=== PATIENT | female | born 1965 | race African-American/Black ===

== ENCOUNTER 2018-02-12 05:31 | Emergency (ER) | payer BC ==
[2018-02-12] MEDS ORDERED: Ketorolac Tromethamine 30 MG/ML VIAL ONE (06:29)
[2018-02-12 06:39] LABS: Bilirubin Negative (Negative); Blood, Urine Negative (Negative); Clarity CLEAR (Clear); Glucose, Urine (Dipstick) Negative (Negative); Leukocyte Negative (Negative); Nitrite Negative (Negative); Protein, Urine (Dipstick) Negative (Neg-Trace); pH, Urine 6.5 (5.0-9.0)
[2018-02-12 06:44] LABS: ALT (SGPT) 39 U/L (8-55); AST (SGOT) 36 U/L (5-34); Albumin 3.8 g/dL (3.5-5.0); Alkaline Phosphatase 80 U/L (40-150); Anion Gap 14 mmol/L (10-20); BUN (Urea Nitrogen) 14 mg/dL (9.8-20.1); Bilirubin, Total 0.4 mg/dL (0.2-1.2); Calc. Creatinine Clearance 0 mL/min (70-130); Calcium 8.9 mg/dL (7.8-10.44); Carbon Dioxide 29 mmol/L (22-29); Chloride 99 mmol/L (98-107); Estimated GFR-MDRD 87; Globulin 2.8 g/dL (2.4-3.5); Glucose 95 mg/dL (70-105); Lipase 13 U/L (8-78); Potassium 3.1 mmol/L (3.5-5.1); Protein, Total 6.6 g/dL (6.0-8.3); Sodium 139 mmol/L (136-145)
[2018-02-12 06:45] LABS: #Lymphocytes 2.6 thou/uL (1.20-3.40); #Monocytes 0.7 thou/uL (0.11-0.59); #Neutrophils 5.6 thou/uL (1.40-6.50); %Basophils 0.3 % (0.0-1.0); %Eosinophils 0.4 % (0.0-10.0); %Lymphocytes 28.7 % (21.0-51.0); %Monocytes 8.3 % (0.0-10.0); %Neutrophils 62.3 % (42.0-75.0); Hemoglobin 14.3 g/dL (12.0-16.0); Mean Corpuscular HGB CONC 32.9 g/dL (32.0-36.0); Mean Corpuscular Hemoglobin 30.4 pg (27.0-31.0); Mean Corpuscular Volume 92.4 fl (81.0-99.0); Mean Platelet Volume 8.3 fL (7.4-10.4); Platelet Count 175 thou/uL (130-400); RBC Distribution Width 14.3 % (11.5-14.5); White Blood Cell (WBC) Count 8.9 thou/uL (4.8-10.8)
--- NOTE | 2018-02-12 07:35 | RAD ---
2 VIEWS CHEST: Date: 02/12/18 COMPARISON: 07/05/15. HISTORY: Bronchitis. FINDINGS: No pneumothorax, pleural fluid, focal consolidation, or alveolar edema. Cardiac silhouette is promine nt. Partially imaged IVC filter present. Multilevel mid thoracic spine degenerative change present. IMPRESSION: No acute findings. POS: [facility]
--- NOTE | 2018-02-12 12:59 | CT ---
PRELIMINARY REPORT/[facility]/EMERGENTY AFTER-HOURS PROCEDURE CT Abdomen And Pelvis Without Intravenous Contrast EXAM DATE/TIME: 02/12/2018 6:47 AM CLINICAL HISTORY: 53 years old, female; Pain; Abdominal pain; Flank; Right; Prior surgery; Surgery type: Surgical histo ry of section, notes: X 2, surgical history of cholecystectomy, vena cava filter; Patient HX : F53 presents to ed C/O right-sided abdominal pain that radiates to her back onset yesterday at 17:00. TECHNIQUE: Axial computed tomography images of the abdomen and pelvis without intravenous contrast. Coronal refo rmatted images were created and reviewed. COMPARISON: No relevant prior studies available. FINDINGS: Lower thorax: No acute findings. ABDOMEN: Liver: Normal. No mass. Gallbladder and bile ducts: Normal. No calcified stones. No ductal dilation. Pancreas: Normal. No ductal dilation. Spleen: Normal. No splenomegaly. Adrenals: Normal. No mass. Kidneys and ureters: Normal. No hydronephrosis. Stomach and bowel: Normal. No obstruction. No mucosal thickening. Appendix: No findings to suggest acute appendicitis. PELVIS: Bladder: Unremarkable as visualized. Reproductive: Unremarkable as visualized. ABDOMEN and PELVIS: Intraperitoneal space: Normal. No free air. No significant fluid collection. Bones/joints: No acute fracture. No dislocation. Soft tissues: Unremarkable. Vasculature: There is a filter present within the inferior vena cava. Lymph nodes: Normal. No enlarged lymph nodes. IMPRESSION: No definite evidence of acute abdominal or pelvic pathology. Remainder of findings as described above . Thank you for allowing us to participate in the care of your patient. Dictated and Authenticated by: Ghada Oviedo MD 02/12/2018 7:56 AM Central Time ([place] & [place]) FINAL REPORT CT ABDOMEN AND PELVIS WITHOUT CONTRAST STONE PROTOCOL: Date: 02/12/18 HISTORY: Abdominal pain. Flank pain. Right-sided abdominal pain. COMPARISON: None. FINDINGS/IMPRESSION: The findings and impression are concordant with the preliminary report by Chastity. POS: [facility]
== END 2018-02-12 09:37 | disposition home or self-care (01) ==
LOC: ERS 05:31
DX: S39.011A Strain of muscle, fascia and tendon of abdomen, initial encounter (principal); I10 Essential (primary) hypertension; J45.909 Unspecified asthma, uncomplicated; E66.9 Obesity, unspecified; F41.9 Anxiety disorder, unspecified; Z86.711 Personal history of pulmonary embolism; Z79.899 Other long term (current) drug therapy; Z79.891 Long term (current) use of opiate analgesic; X58.XXXA Exposure to other specified factors, initial encounter
CPT/HCPCS: 71046; 74176; 80053; 81003; 83605; 83690; 85025; 86140; 96374; J1885

== ENCOUNTER 2018-07-07 14:48 | Outpatient (CLI) | payer BC, MEDICARE, MEDICAID ==
--- NOTE | 2018-07-07 16:04 | MRI ---
MRI OF THE RIGHT SHOULDER: 07/07/18 PROVIDED CLINICAL HISTORY: Right shoulder pain. FINDINGS: Evaluation is limited by patient motion. There is at least high grade partial thickness undersurface tearing involving the distal supraspinatus tendon at the footplate. The components of the rotator cuf f appears otherwise grossly intact. The long head biceps tendon is not well evaluated on this examina tion. The glenoid labrum and glenohumeral articular cartilage are not optimally evaluated in the abse nce of joint distention in particularly given the degree of patient motion. Acromioclavicular joint osteoarthrosis is demonstrated which produces mild mass effect upon the subja cent supraspinatus. Rotator cuff muscular volume appears preserved. There is greater than physiologic subacromial subdeltoid bursal fluid. IMPRESSION: 1. Limited study due to patient motion. 2. At least high grade partial thickness undersurface tearing involving the distal supraspinatus tendon. 3. Greater than physiologic subacromial subdeltoid bursal fluid may reflect bursitis or an occul t full thickness component to the described tear. POS: [facility]
== END 2018-07-07 14:49 | disposition home or self-care (01) ==
LOC: TBSIIMAG 14:48
PROVIDERS: ATTEND Orthopaedic Surgery
DX: M25.511 Pain in right shoulder (principal); M75.101 Unspecified rotator cuff tear or rupture of right shoulder, not specified as traumatic

== ENCOUNTER 2019-01-26 08:37 | Outpatient (CLI) | payer MEDICARE, MEDICAID ==
--- NOTE | 2019-01-31 13:21 | MMO ---
Bilateral MAMMO Bilat Screen [facility]. CLINICAL HISTORY: Patient is 54 years old and is seen for screening. The patient has no family history of breast cancer. The patient has no personal history of cancer. VIEWS: The views performed were: bilateral craniocaudal and bilateral mediolateral oblique. This study has been interpreted with the assistance of computer-aided detection. MAMMOGRAM FINDINGS: The breasts are almost entirely fat. There are benign appearing calcifications seen in both breasts. There are no suspicious masses, suspicious calcifications, or new areas of architectural distortion. IMPRESSION: THERE IS NO MAMMOGRAPHIC EVIDENCE OF MALIGNANCY. A ROUTINE FOLLOW-UP MAMMOGRAM IN 1 YEAR IS RECOMMENDED. ACR BI-RADS Category 2 - Benign finding MAMMOGRAPHY NOTE: 1. A negative mammogram report should not delay a biopsy if a dominant of clinically suspicious mass is present. 2. Approximately 10% to 15% of breast cancers are not detected by mammography. 3. Adenosis and dense breasts may obscure an underlying neoplasm.
== END 2019-01-26 08:38 | disposition home or self-care (01) ==
LOC: SCSMAMMO 08:37
PROVIDERS: ATTEND Obstetrics & Gynecology
DX: Z12.31 Encounter for screening mammogram for malignant neoplasm of breast (principal)
CPT/HCPCS: 77067

== ENCOUNTER 2019-04-29 06:20 | Emergency (ER) | payer MEDICARE, MEDICAID ==
[2019-04-29] MEDS ORDERED: Dexamethasone 10 MG/ML VIAL ONE (07:15)
[2019-04-29 07:43] LABS: MONO NEGATIVE CONTROL ZONE White (Negative) (White); MONO POSITIVE CONTROL Pink Line (Positive) (PINK/RED); Mononucleosis NEGATIVE (NEGATIVE)
== END 2019-04-29 08:10 | disposition home or self-care (01) ==
LOC: ERS 06:20
DX: J02.9 Acute pharyngitis, unspecified (principal); I10 Essential (primary) hypertension; J45.909 Unspecified asthma, uncomplicated; F41.9 Anxiety disorder, unspecified; Z86.711 Personal history of pulmonary embolism; Z79.899 Other long term (current) drug therapy; Z79.51 Long term (current) use of inhaled steroids
CPT/HCPCS: 36415; 86308; 96372; 99283; J1100

== ENCOUNTER 2020-11-23 10:51 | Emergency (ER) | payer MEDICAID, MEDICARE ==
[2020-11-23 11:29] LABS: #Lymphocytes 1.6 thou/uL (1.20-3.40); #Monocytes 0.5 thou/uL (0.11-0.59); #Neutrophils 3.4 thou/uL (1.40-6.50); %Basophils 0.2 % (0.0-1.0); %Eosinophils 0.3 % (0.0-10.0); %Lymphocytes 29.1 % (21.0-51.0); %Monocytes 8.8 % (0.0-10.0); %Neutrophils 61.7 % (42.0-75.0); Mean Corpuscular HGB CONC 33.6 g/dL (32.0-36.0); Mean Corpuscular Hemoglobin 30.7 pg (27.0-31.0); Mean Corpuscular Volume 91.4 fL (78.0-98.0); Mean Platelet Volume 8.2 fL (7.4-10.4); Platelet Count 169 thou/uL (130-400); RBC Distribution Width 13.6 % (11.5-14.5); Red Blood Cell (RBC) Count 4.22 mill/uL (4.20-5.40); White Blood Cell (WBC) Count 5.5 thou/uL (4.8-10.8)
[2020-11-23 11:43] LABS: ALT (SGPT) 12 U/L (8-55); AST (SGOT) 14 U/L (5-34); Albumin 3.7 g/dL (3.5-5.0); Alkaline Phosphatase 87 U/L (40-110); Anion Gap 11 mmol/L (10-20); BUN (Urea Nitrogen) 17 mg/dL (9.8-20.1); Bilirubin, Total 0.5 mg/dL (0.2-1.2); Calc. Creatinine Clearance 0 mL/min (70-130); Carbon Dioxide 27 mmol/L (22-29); Chloride 103 mmol/L (98-107); Glucose 87 mg/dL (70-105); Lipase 11 U/L (8-78); Potassium 3.7 mmol/L (3.5-5.1); Protein, Total 6.7 g/dL (6.0-8.3); Sodium 137 mmol/L (136-145)
[2020-11-23] MEDS ORDERED: Ketorolac Tromethamine 30 MG/ML VIAL ONE (12:13)
[2020-11-23 12:29] LABS: Bilirubin Negative (Negative); Blood, Urine Negative (Negative); Clarity Clear (Clear); Glucose, Urine (Dipstick) Normal (Negative); Ketone, Urine Negative (Negative); Leukocyte Negative Leu/uL (Negative); Nitrite Negative (Negative); Protein, Urine (Dipstick) Negative (Neg-Trace); Urobilinogen Normal mg/dL (Less than 2)
[2020-11-23] MEDS ORDERED: Iopamidol-370 76% 500 ML 1 ML ONE (14:33)
== END 2020-11-23 15:16 | disposition home or self-care (01) ==
LOC: ERS 10:51
DX: R10.9 Unspecified abdominal pain (principal); J45.909 Unspecified asthma, uncomplicated; I10 Essential (primary) hypertension; E66.9 Obesity, unspecified; Z79.899 Other long term (current) drug therapy
CPT/HCPCS: 36415; 74177; 80053; 81003; 83690; 85025; 96372; J1885; Q9967

== ENCOUNTER 2021-01-27 10:53 | Emergency (ER) | payer MEDICARE, MEDICAID ==
[2021-01-27] MEDS ORDERED: Apixaban 5 MG TAB PO SCH (14:30)
== END 2021-01-27 14:53 | disposition home or self-care (01) ==
LOC: ERS 10:53
DX: I82.402 Acute embolism and thrombosis of unspecified deep veins of left lower extremity (principal); J45.909 Unspecified asthma, uncomplicated; I10 Essential (primary) hypertension; Z79.899 Other long term (current) drug therapy; Z86.711 Personal history of pulmonary embolism; M79.605 Pain in left leg; M79.89 Other specified soft tissue disorders

== ENCOUNTER 2021-06-19 17:58 | Inpatient (IN) | payer OTHER, MEDICARE, MEDICAID ==
[2021-06-19 18:45] LABS: Hemoglobin 13.9 g/dL (12.0-16.0); Mean Corpuscular HGB CONC 33.1 g/dL (32.0-36.0); Mean Corpuscular Hemoglobin 30.1 pg (27.0-31.0); Mean Corpuscular Volume 91.1 fL (78.0-98.0); Mean Platelet Volume 7.9 fL (7.4-10.4); Platelet Count 166 thou/uL (130-400); RBC Distribution Width 14.6 % (11.5-14.5); White Blood Cell (WBC) Count 8.6 thou/uL (4.8-10.8)
[2021-06-19 18:57] LABS: ALT (SGPT) 28 U/L (8-55); AST (SGOT) 39 U/L (5-34); Albumin 3.6 g/dL (3.5-5.0); Alkaline Phosphatase 75 U/L (40-110); Anion Gap 14 mmol/L (10-20); BUN (Urea Nitrogen) 15 mg/dL (9.8-20.1); Bilirubin, Total 0.3 mg/dL (0.2-1.2); Calc. Creatinine Clearance 0 mL/min (70-130); Calcium 9.4 mg/dL (7.8-10.44); Carbon Dioxide 26 mmol/L (22-29); Chloride 99 mmol/L (98-107); Globulin 3.9 g/dL (2.4-3.5); Glucose 154 mg/dL (70-105); Potassium 4.6 mmol/L (3.5-5.1); Protein, Total 7.5 g/dL (6.0-8.3); Sodium 134 mmol/L (136-145)
[2021-06-19 19:04] LABS: Band 16 % (5-11); Lymphocytes 11 % (21-51); MDiff Complete? YES; Monocytes 3 % (0-10); Neutrophil 69 % (42-75); Platelet Morphology Comment Appears Adequate; Polychromasia SLIGHT = 2-3 cells (100X) (0-2/hpf); Reactive Lymphocytes 1 % (0-10)
[2021-06-19] MEDS ORDERED: Dexamethasone 10 MG/ML VIAL ONE (20:52)
[2021-06-19] MEDS ORDERED: Succinylcholine 200 MG/10 ml SYRINGE FS ONE (21:00)
[2021-06-19 22:25] LABS: Bilirubin Negative (Negative); Blood, Urine Negative (Negative); Clarity Clear (Clear); Glucose, Urine (Dipstick) Normal (Negative); Ketone, Urine Negative (Negative); Leukocyte Negative Leu/uL (Negative); Nitrite Negative (Negative); Protein, Urine (Dipstick) 30 mg/dL (Neg-Trace); RBC/HPF None Seen HPF (0-3); Specific Gravity, Urine 1.016 (1.002-1.036); Urobilinogen Normal mg/dL (Less than 2); WBC/HPF 0-3 HPF (0-3); pH, Urine 6.5 (5.0-9.0)
[2021-06-19 22:26] LABS: Bacteria/HPF 1+ HPF (None Seen)
[2021-06-20] MEDS: Benzonatate 100 MG CAP PO PRN ×4 (00:37→22:51)
[2021-06-20] MEDS ORDERED: Ondansetron PF 4 MG/2 ML Vial IVP PRN (02:58)
[2021-06-20] MEDS ORDERED: Albuterol 200 PUFF (6.7GM INHALER) INH PRN (02:59)
[2021-06-20] MEDS: Albuterol 200 PUFF (6.7GM INHALER) INH SCH ×5 (06:11→22:51)
[2021-06-20] MEDS ORDERED: Mometasone 100 MCG/Formoterol 5 MCG 120 PUFF INHALER INH SCH (06:30)
[2021-06-20] MEDS: Mometasone 200 MCG/Formoterol 5 MCG 120 PUFF INHALER INH SCH ×2 (06:54→20:15)
[2021-06-20] MEDS ORDERED: Ipratropium Bromide 2.5 ml Neb NEB SCH (07:00)
[2021-06-20 07:14] LABS: ALT (SGPT) 29 U/L (8-55); AST (SGOT) 41 U/L (5-34); Albumin 3.3 g/dL (3.5-5.0); Alkaline Phosphatase 71 U/L (40-110); Anion Gap 14 mmol/L (10-20); BUN (Urea Nitrogen) 14 mg/dL (9.8-20.1); Bilirubin, Total 0.4 mg/dL (0.2-1.2); CRP (Inflammatory) 29.78 mg/dL (= or < 0.5); Calc. Creatinine Clearance 210 mL/min (70-130); Calcium 9.3 mg/dL (7.8-10.44); Carbon Dioxide 25 mmol/L (22-29); Chloride 100 mmol/L (98-107); Glucose 140 mg/dL (70-105); Potassium 4.4 mmol/L (3.5-5.1); Protein, Total 7.3 g/dL (6.0-8.3); Sodium 135 mmol/L (136-145)
[2021-06-20 07:18] LABS: #Lymphocytes 0.7 thou/uL (1.20-3.40); #Monocytes 0.5 thou/uL (0.11-0.59); #Neutrophils 9.4 thou/uL (1.40-6.50); %Eosinophils 0.1 % (0.0-10.0); %Lymphocytes 6.5 % (21.0-51.0); %Monocytes 4.3 % (0.0-10.0); %Neutrophils 89.1 % (42.0-75.0); Hemoglobin 13.6 g/dL (12.0-16.0); Mean Corpuscular HGB CONC 32.4 g/dL (32.0-36.0); Mean Corpuscular Hemoglobin 29.7 pg (27.0-31.0); Mean Corpuscular Volume 91.7 fL (78.0-98.0); Mean Platelet Volume 8.4 fL (7.4-10.4); Platelet Count 176 thou/uL (130-400); RBC Distribution Width 14.8 % (11.5-14.5); Red Blood Cell (RBC) Count 4.57 mill/uL (4.20-5.40); White Blood Cell (WBC) Count 10.5 thou/uL (4.8-10.8)
[2021-06-20] MEDS: Apixaban 5 MG TAB PO SCH ×2 (07:56→21:29)
[2021-06-20] MEDS: Zinc Sulfate 220 MG CAP PO SCH (07:56)
[2021-06-20] MEDS: Amlodipine 10 MG TAB PO SCH (07:56)
[2021-06-20] MEDS: Famotidine 20 MG TAB PO SCH ×2 (07:56→21:29)
[2021-06-20] MEDS: Cholecalciferol 1,000 UNITS (25 MCG) TAB PO SCH (07:57)
[2021-06-20] MEDS: Dexamethasone 4 mg/ml Vial SLOW IVP SCH (07:57)
[2021-06-20] MEDS ORDERED: Dexamethasone 4 mg/ml Vial SLOW IVP SCH (09:00)
[2021-06-20] MEDS ORDERED: Non-Formulary Item 1 EACH (Fluticasone/Vilanterol [Breo Ellipta 200-25 Mcg Inh] 1 EACH Bl INH SCH (09:00)
[2021-06-20] MEDS ORDERED: REMDESIVIR 200 MG in Sodium Chloride 0.9% 250 ML 210 ML IV SCH (09:00)
[2021-06-20] MEDS ORDERED: Ascorbic Acid 500 mg Chewable Tablet PO SCH (09:00)
[2021-06-20] MEDS ORDERED: Pharmacy to Dose BARICITINIB IVPB PRN (16:04)
[2021-06-20 16:52] LABS: Actual Bicarbonate (HCO3a) 25.7 mEq/L (22-28); Base Excess (BEa) 2.5 mEq/L (-2.0 to +3.0); CO2 Tension 35.5 mmHg (35.0-45.0); Carboxyhemoglobin (COHb) 0.8 gm% (0.0-3.0); Hemoglobin (Hb) 14.5 g/dL (12.0-16.0); Potassium - ABG Lab 4.31 mmol/L (3.70-5.30); pH, Arterial 7.48 (7.35-7.45)
[2021-06-20 17:21] LABS: O2 Tension (PaO2), arterial 48.5 mmHg (80.0-100.0)
[2021-06-20 17:22] LABS: ALV-art Gradient 391.965 mmHg (0-20); Puncture Site LRA
[2021-06-20] MEDS ORDERED: BARICITINIB 2 MG TAB PO SCH (19:30)
[2021-06-20] MEDS: ALPRAZolam 0.5 MG TAB PO SCH (21:29)
[2021-06-20] MEDS: Montelukast Sodium 10 mg Tablet PO SCH (21:29)
[2021-06-20] MEDS: hydrALAZINE 20 MG/ML VIAL SLOW IVP PRN (23:49)
[2021-06-21 04:38] LABS: ALT (SGPT) 30 U/L (8-55); AST (SGOT) 46 U/L (5-34); Albumin 3.2 g/dL (3.5-5.0); Alkaline Phosphatase 80 U/L (40-110); Anion Gap 18 mmol/L (10-20); BUN (Urea Nitrogen) 21 mg/dL (9.8-20.1); Bilirubin, Total 0.4 mg/dL (0.2-1.2); CRP (Inflammatory) 30.94 mg/dL (= or < 0.5); Calc. Creatinine Clearance 213 mL/min (70-130); Carbon Dioxide 21 mmol/L (22-29); Chloride 99 mmol/L (98-107); Globulin 4.1 g/dL (2.4-3.5); Glucose 134 mg/dL (70-105); Potassium 4.5 mmol/L (3.5-5.1); Protein, Total 7.3 g/dL (6.0-8.3); Sodium 133 mmol/L (136-145)
[2021-06-21 05:49] LABS: Band 11 % (5-11); Hemoglobin 13.8 g/dL (12.0-16.0); Lymphocytes 9 % (21-51); MDiff Complete? YES; Mean Corpuscular HGB CONC 33.2 g/dL (32.0-36.0); Mean Corpuscular Hemoglobin 30.3 pg (27.0-31.0); Mean Corpuscular Volume 91.3 fL (78.0-98.0); Mean Platelet Volume 8.4 fL (7.4-10.4); Monocytes 4 % (0-10); Neutrophil 76 % (42-75); Platelet Count 191 thou/uL (130-400); Platelet Morphology Comment Appears Adequate; Polychromasia SLIGHT = 2-3 cells (100X) (0-2/hpf); RBC Distribution Width 14.7 % (11.5-14.5); Red Blood Cell (RBC) Count 4.55 mill/uL (4.20-5.40); Rouleaux Formation MODERATE= 6-15 cells (100X) (None Seen)
[2021-06-21] MEDS: Albuterol 200 PUFF (6.7GM INHALER) INH SCH ×6 (05:55→22:45)
[2021-06-21] MEDS: Levothyroxine Sodium 50 MCG TAB PO SCH (05:57)
[2021-06-21] MEDS: Mometasone 200 MCG/Formoterol 5 MCG 120 PUFF INHALER INH SCH ×2 (05:57→18:41)
[2021-06-21] MEDS: Benzonatate 100 MG CAP PO PRN ×2 (06:01→21:04)
[2021-06-21] MEDS: Zinc Sulfate 220 MG CAP PO SCH (09:31)
[2021-06-21] MEDS: Ascorbic Acid 500 mg Chewable Tablet PO SCH (09:31)
[2021-06-21] MEDS: Apixaban 5 MG TAB PO SCH ×2 (09:32→21:04)
[2021-06-21] MEDS: Famotidine 20 MG TAB PO SCH ×2 (09:32→21:04)
[2021-06-21] MEDS: Cholecalciferol 1,000 UNITS (25 MCG) TAB PO SCH (09:32)
[2021-06-21] MEDS: Amlodipine 10 MG TAB PO SCH (09:32)
[2021-06-21] MEDS: Dexamethasone 4 mg/ml Vial SLOW IVP SCH (09:32)
[2021-06-21] MEDS: REMDESIVIR 100 MG in Sodium Chloride 0.9% 250 ML 230 ML IV SCH (09:33)
[2021-06-21] MEDS: ALPRAZolam 0.5 MG TAB PO SCH ×2 (10:01→21:04)
[2021-06-21] MEDS: Tiotropium Bromide 4 GM INHALER IH SCH (18:39)
[2021-06-21] MEDS: Montelukast Sodium 10 mg Tablet PO SCH (21:04)
[2021-06-21] MEDS: BARICITINIB 2 MG TAB PO SCH (21:21)
[2021-06-21] MEDS: guaiFENesin/Codeine 200 mg/20 mg 10 ml Cup PO PRN (22:45)
[2021-06-22] MEDS: Benzonatate 100 MG CAP PO PRN ×2 (01:01→20:58)
[2021-06-22] MEDS: ALPRAZolam 0.25 MG TAB PO PRN ×3 (01:01→23:49)
[2021-06-22] MEDS ORDERED: Lorazepam 2 MG/ML VIAL SLOW IVP SCH (02:15)
[2021-06-22 02:22] LABS: Actual Bicarbonate (HCO3a) 25.5 mEq/L (22-28); Base Excess (BEa) 1.4 mEq/L (-2.0 to +3.0); CO2 Tension 38.7 mmHg (35.0-45.0); Calcium, Ionized (arterial) 1.15 mmol/L (1.12-1.30); Carboxyhemoglobin (COHb) 0.5 gm% (0.0-3.0); Hemoglobin (Hb) 15.2 g/dL (12.0-16.0); O2 Tension (PaO2), arterial 61.2 mmHg (80.0-100.0); Potassium - ABG Lab 4.36 mmol/L (3.70-5.30); pH, Arterial 7.44 (7.35-7.45)
[2021-06-22 02:31] LABS: ALV-art Gradient 589.165 mmHg (0-20); Puncture Site RRA
[2021-06-22] MEDS: Albuterol 200 PUFF (6.7GM INHALER) INH SCH ×5 (02:31→18:36)
[2021-06-22 04:06] LABS: #Lymphocytes 1.1 thou/uL (1.20-3.40); #Monocytes 0.8 thou/uL (0.11-0.59); #Neutrophils 10.6 thou/uL (1.40-6.50); %Eosinophils 0.3 % (0.0-10.0); %Lymphocytes 8.6 % (21.0-51.0); %Monocytes 6.1 % (0.0-10.0); Mean Corpuscular Hemoglobin 30.2 pg (27.0-31.0); Mean Corpuscular Volume 91.6 fL (78.0-98.0); Mean Platelet Volume 7.9 fL (7.4-10.4); Platelet Count 137 thou/uL (130-400); RBC Distribution Width 14.6 % (11.5-14.5); Red Blood Cell (RBC) Count 4.98 mill/uL (4.20-5.40); White Blood Cell (WBC) Count 12.5 thou/uL (4.8-10.8)
[2021-06-22 04:34] LABS: Anion Gap 15 mmol/L (10-20); BUN (Urea Nitrogen) 34 mg/dL (9.8-20.1); Calc. Creatinine Clearance 185 mL/min (70-130); Carbon Dioxide 24 mmol/L (22-29); Chloride 98 mmol/L (98-107); Potassium 4.7 mmol/L (3.5-5.1); Sodium 132 mmol/L (136-145)
[2021-06-22 04:35] LABS: ALT (SGPT) 33 U/L (8-55); AST (SGOT) 39 U/L (5-34); Albumin 3.4 g/dL (3.5-5.0); Alkaline Phosphatase 100 U/L (40-110); Bilirubin, Total 0.6 mg/dL (0.2-1.2); CRP (Inflammatory) 24.11 mg/dL (= or < 0.5); Calcium 9.2 mg/dL (7.8-10.44); Globulin 4.4 g/dL (2.4-3.5); Glucose 129 mg/dL (70-105); Protein, Total 7.8 g/dL (6.0-8.3)
[2021-06-22] MEDS: Levothyroxine Sodium 50 MCG TAB PO SCH (06:00)
[2021-06-22] MEDS: Mometasone 200 MCG/Formoterol 5 MCG 120 PUFF INHALER INH SCH ×2 (07:00→18:36)
[2021-06-22] MEDS: REMDESIVIR 100 MG in Sodium Chloride 0.9% 250 ML 230 ML IV SCH (09:17)
[2021-06-22] MEDS: Ascorbic Acid 500 mg Chewable Tablet PO SCH (09:18)
[2021-06-22] MEDS: Dexamethasone 4 mg/ml Vial SLOW IVP SCH (09:18)
[2021-06-22] MEDS: Apixaban 5 MG TAB PO SCH ×2 (09:19→20:59)
[2021-06-22] MEDS: Cholecalciferol 1,000 UNITS (25 MCG) TAB PO SCH (09:19)
[2021-06-22] MEDS: Famotidine 20 MG TAB PO SCH ×2 (09:19→20:58)
[2021-06-22] MEDS: Zinc Sulfate 220 MG CAP PO SCH (09:19)
[2021-06-22] MEDS: Amlodipine 10 MG TAB PO SCH (09:19)
[2021-06-22] MEDS: ALPRAZolam 0.5 MG TAB PO SCH ×2 (09:19→20:59)
[2021-06-22] MEDS: Tiotropium Bromide 4 GM INHALER IH SCH (11:17)
[2021-06-22] MEDS: Montelukast Sodium 10 mg Tablet PO SCH (20:59)
[2021-06-22] MEDS: BARICITINIB 2 MG TAB PO SCH (21:04)
[2021-06-22] MEDS: guaiFENesin/Codeine 200 mg/20 mg 10 ml Cup PO PRN (23:48)
[2021-06-22] MEDS: Acetaminophen 325 MG TAB PO PRN (23:49)
[2021-06-23] MEDS: Albuterol 200 PUFF (6.7GM INHALER) INH SCH ×5 (00:15→23:46)
[2021-06-23 04:39] LABS: Hemoglobin 14.4 g/dL (12.0-16.0); Mean Corpuscular HGB CONC 31.2 g/dL (32.0-36.0); Mean Corpuscular Hemoglobin 28.5 pg (27.0-31.0); Mean Corpuscular Volume 91.5 fL (78.0-98.0); Mean Platelet Volume 8.6 fL (7.4-10.4); Platelet Count 128 thou/uL (130-400); RBC Distribution Width 14.5 % (11.5-14.5); Red Blood Cell (RBC) Count 5.04 mill/uL (4.20-5.40); White Blood Cell (WBC) Count 11.2 thou/uL (4.8-10.8)
[2021-06-23 04:40] LABS: ALT (SGPT) 28 U/L (8-55); AST (SGOT) 26 U/L (5-34); Albumin 3.1 g/dL (3.5-5.0); Alkaline Phosphatase 87 U/L (40-110); Anion Gap 14 mmol/L (10-20); BUN (Urea Nitrogen) 30 mg/dL (9.8-20.1); Bilirubin, Total 0.6 mg/dL (0.2-1.2); Calc. Creatinine Clearance 231 mL/min (70-130); Calcium 8.9 mg/dL (7.8-10.44); Carbon Dioxide 25 mmol/L (22-29); Chloride 100 mmol/L (98-107); Globulin 3.8 g/dL (2.4-3.5); Glucose 125 mg/dL (70-105); Magnesium 2.7 mg/dL (1.6-2.6); Phosphorus 3.3 mg/dL (2.3-4.7); Potassium 4.4 mmol/L (3.5-5.1); Protein, Total 6.9 g/dL (6.0-8.3); Sodium 135 mmol/L (136-145)
[2021-06-23] MEDS: Levothyroxine Sodium 50 MCG TAB PO SCH (05:38)
[2021-06-23 05:39] LABS: Band 2 % (5-11); Lymphocytes 11 % (21-51); MDiff Complete? YES; Monocytes 7 % (0-10); Neutrophil 80 % (42-75)
[2021-06-23] MEDS: Tiotropium Bromide 4 GM INHALER IH SCH (09:45)
[2021-06-23] MEDS: Mometasone 200 MCG/Formoterol 5 MCG 120 PUFF INHALER INH SCH (09:45)
[2021-06-23] MEDS: REMDESIVIR 100 MG in Sodium Chloride 0.9% 250 ML 230 ML IV SCH (09:46)
[2021-06-23] MEDS: Amlodipine 10 MG TAB PO SCH (09:48)
[2021-06-23] MEDS: Dexamethasone 4 mg/ml Vial SLOW IVP SCH (09:48)
[2021-06-23] MEDS: Ascorbic Acid 500 mg Chewable Tablet PO SCH (09:48)
[2021-06-23] MEDS: Zinc Sulfate 220 MG CAP PO SCH (09:49)
[2021-06-23] MEDS: Apixaban 5 MG TAB PO SCH ×2 (09:49→20:59)
[2021-06-23] MEDS: Famotidine 20 MG TAB PO SCH (09:49)
[2021-06-23] MEDS: Cholecalciferol 1,000 UNITS (25 MCG) TAB PO SCH (09:49)
[2021-06-23] MEDS: ALPRAZolam 0.5 MG TAB PO SCH (09:51)
[2021-06-23] MEDS ORDERED: Propofol 1,000 MG/100 ML VIAL IV ONE ×2 (11:51→13:33)
[2021-06-23] MEDS ORDERED: PROPOFOL 200 MG/20 ML VIAL ONE (13:00)
[2021-06-23] MEDS ORDERED: Rocuronium Bromide 10 MG/ML (10ML VIAL) ONE (13:00)
[2021-06-23] MEDS ORDERED: Succinylcholine 200 MG/10 ml SYRINGE FS ONE (13:00)
[2021-06-23] MEDS ORDERED: Fentanyl CADD 100 ML ONE ×2 (13:09→20:54)
[2021-06-23] MEDS ORDERED: Ventilator Sedation Protocol 1 EACH FS SCH (13:30)
[2021-06-23] MEDS ORDERED: Lorazepam 2 MG/ML VIAL ONE (13:32)
[2021-06-23] MEDS ORDERED: Propofol BOLUS 1,000 MG/100 ML VIAL IV PRN (13:45)
[2021-06-23] MEDS ORDERED: Fentanyl BOLUS 250 ML IVPB PRN (13:45)
[2021-06-23] MEDS: Lorazepam 2 MG/ML VIAL SLOW IVP PRN ×3 (14:02→16:31)
[2021-06-23] MEDS: Vecuronium 10 MG VIAL ONE ×2 (14:02→16:28)
[2021-06-23] MEDS ORDERED: Lorazepam 2 MG/ML VIAL SLOW IVP PRN (14:15)
[2021-06-23] MEDS ORDERED: Succinylcholine 200 MG/10 ml SYRINGE FS SCH (15:00)
[2021-06-23] MEDS ORDERED: PROPOFOL 200 MG/20 ML VIAL IV SCH (15:00)
[2021-06-23] MEDS ORDERED: Rocuronium Bromide 10 MG/ML (10ML VIAL) IVP SCH (15:00)
[2021-06-23] MEDS: Propofol 1,000 MG/100 ML VIAL IV PRN ×5 (15:09→23:34)
[2021-06-23] MEDS: hydrALAZINE 20 MG/ML VIAL SLOW IVP PRN (15:13)
[2021-06-23] MEDS ORDERED: Vecuronium 10 MG VIAL ONE (16:10)
[2021-06-23 16:17] LABS: pH, Arterial 7.26 (7.35-7.45)
[2021-06-23 16:18] LABS: Base Excess (BEa) -0.1 mEq/L (-2.0 to +3.0); CO2 Tension 66.3 mmHg (35.0-45.0)
[2021-06-23 16:19] LABS: Carboxyhemoglobin (COHb) 0.3 gm% (0.0-3.0); Hemoglobin (Hb) 16.1 g/dL (12.0-16.0); Potassium - ABG Lab 4.29 mmol/L (3.70-5.30); Puncture Site LRA
[2021-06-23 16:22] LABS: ALV-art Gradient 532.125 mmHg (0-20)
[2021-06-23] MEDS: Morphine 2 MG/ML VIAL SLOW IVP PRN (16:29)
[2021-06-23] MEDS: Dexmedetomidine 1,000 MCG in Sodium Chloride 0.9% 250 ML 240 ML IVPB SCH ×2 (16:31→20:57)
[2021-06-23] MEDS: Fentanyl CADD 100 ML IV SCH (20:58)
[2021-06-23] MEDS: Montelukast Sodium 10 mg Tablet PO SCH (20:59)
[2021-06-23] MEDS: BARICITINIB 2 MG TAB PO SCH (21:27)
[2021-06-24] MEDS ORDERED: Albuterol Sulfate 2.5 mg/3 ml Neb NEB SCH (01:00)
[2021-06-24] MEDS: Propofol 1,000 MG/100 ML VIAL IV PRN ×3 (05:46→20:46)
[2021-06-24] MEDS: Levothyroxine Sodium 50 MCG TAB PO SCH (05:47)
[2021-06-24] MEDS ORDERED: Fentanyl CADD 100 ML ONE ×2 (07:31→21:19)
[2021-06-24] MEDS: REMDESIVIR 100 MG in Sodium Chloride 0.9% 250 ML 230 ML IV SCH (07:35)
[2021-06-24] MEDS: Dexmedetomidine 1,000 MCG in Sodium Chloride 0.9% 250 ML 240 ML IVPB SCH ×2 (07:35→14:36)
[2021-06-24] MEDS: Cholecalciferol 1,000 UNITS (25 MCG) TAB PO SCH (07:36)
[2021-06-24] MEDS: Acetaminophen 325 MG TAB PO PRN (07:36)
[2021-06-24] MEDS: Ascorbic Acid 500 mg Chewable Tablet PO SCH (07:36)
[2021-06-24] MEDS: Dexamethasone 4 mg/ml Vial SLOW IVP SCH (07:36)
[2021-06-24] MEDS: Apixaban 5 MG TAB PO SCH ×2 (07:37→21:24)
[2021-06-24] MEDS: Amlodipine 10 MG TAB PO SCH (07:37)
[2021-06-24] MEDS: Fentanyl CADD 100 ML IV SCH ×2 (07:38→21:25)
[2021-06-24] MEDS: Albuterol 200 PUFF (6.7GM INHALER) INH SCH ×3 (07:40→19:06)
[2021-06-24 08:08] LABS: Actual Bicarbonate (HCO3a) 33.8 mEq/L (22-28); CO2 Tension 53.9 mmHg (35.0-45.0); Calcium, Ionized (arterial) 1.15 mmol/L (1.12-1.30); Carboxyhemoglobin (COHb) 0.4 gm% (0.0-3.0); Hemoglobin (Hb) 9.9 g/dL (12.0-16.0); O2 Tension (PaO2), arterial 78.8 mmHg (80.0-100.0); Puncture Site RRA; pH, Arterial 7.42 (7.35-7.45)
[2021-06-24 08:09] LABS: ALV-art Gradient 459.875 mmHg (0-20)
[2021-06-24 10:16] LABS: Actual Bicarbonate (HCO3a) 26.1 mEq/L (22-28); Base Excess (BEa) 0.5 mEq/L (-2.0 to +3.0); CO2 Tension 45.5 mmHg (35.0-45.0); Calcium, Ionized (arterial) 1.15 mmol/L (1.12-1.30); Carboxyhemoglobin (COHb) 0.4 gm% (0.0-3.0); O2 Tension (PaO2), arterial 68.7 mmHg (80.0-100.0); Potassium - ABG Lab 4.89 mmol/L (3.70-5.30); pH, Arterial 7.38 (7.35-7.45)
[2021-06-24 10:23] LABS: Puncture Site RRA
[2021-06-24 10:24] LABS: ALV-art Gradient 373.525 mmHg (0-20)
[2021-06-24] MEDS: hydrALAZINE 25 MG TAB PER TUBE SCH ×2 (14:12→21:23)
[2021-06-24] MEDS: Montelukast Sodium 10 mg Tablet PO SCH (21:23)
[2021-06-24] MEDS: BARICITINIB 2 MG TAB PO SCH (21:24)
[2021-06-25] MEDS: Albuterol 200 PUFF (6.7GM INHALER) INH SCH ×4 (00:06→18:28)
[2021-06-25] MEDS: Propofol 1,000 MG/100 ML VIAL IV PRN ×7 (00:17→23:10)
[2021-06-25] MEDS: Dexmedetomidine 1,000 MCG in Sodium Chloride 0.9% 250 ML 240 ML IVPB SCH (01:26)
[2021-06-25 04:32] LABS: #Eosinphils 0.1 thou/uL (0.0-0.7); #Lymphocytes 0.4 thou/uL (1.20-3.40); #Monocytes 0.5 thou/uL (0.11-0.59); #Neutrophils 7.8 thou/uL (1.40-6.50); %Basophils 0.1 % (0.0-1.0); %Eosinophils 0.7 % (0.0-10.0); %Lymphocytes 4.2 % (21.0-51.0); %Monocytes 6.1 % (0.0-10.0); Hemoglobin 9.5 g/dL (12.0-16.0); Mean Corpuscular HGB CONC 31.7 g/dL (32.0-36.0); Mean Corpuscular Hemoglobin 25.2 pg (27.0-31.0); Mean Corpuscular Volume 79.7 fL (78.0-98.0); Mean Platelet Volume 9.3 fL (7.4-10.4); Platelet Count 432 thou/uL (130-400); RBC Distribution Width 14.5 % (11.5-14.5); Red Blood Cell (RBC) Count 3.76 mill/uL (4.20-5.40); White Blood Cell (WBC) Count 8.8 thou/uL (4.8-10.8)
[2021-06-25 04:53] LABS: ALT (SGPT) 63 U/L (8-55); AST (SGOT) 26 U/L (5-34); Albumin 2.7 g/dL (3.5-5.0); Alkaline Phosphatase 140 U/L (40-110); Anion Gap 10 mmol/L (10-20); BUN (Urea Nitrogen) 15 mg/dL (9.8-20.1); Bilirubin, Total 0.3 mg/dL (0.2-1.2); Calc. Creatinine Clearance 341 mL/min (70-130); Calcium 8.4 mg/dL (7.8-10.44); Carbon Dioxide 35 mmol/L (22-29); Chloride 98 mmol/L (98-107); Glucose 114 mg/dL (70-105); Magnesium 2.2 mg/dL (1.6-2.6); Phosphorus 3.9 mg/dL (2.3-4.7); Potassium 4.8 mmol/L (3.5-5.1); Protein, Total 5.7 g/dL (6.0-8.3); Sodium 138 mmol/L (136-145)
[2021-06-25] MEDS: Levothyroxine Sodium 50 MCG TAB PO SCH (05:34)
[2021-06-25 08:10] LABS: Base Excess (BEa) -2.1 mEq/L (-2.0 to +3.0); CO2 Tension 46.1 mmHg (35.0-45.0); Calcium, Ionized (arterial) 1.17 mmol/L (1.12-1.30); Carboxyhemoglobin (COHb) 0.6 gm% (0.0-3.0); Hemoglobin (Hb) 14.2 g/dL (12.0-16.0); O2 Tension (PaO2), arterial 83.2 mmHg (80.0-100.0); Potassium - ABG Lab 4.36 mmol/L (3.70-5.30); pH, Arterial 7.33 (7.35-7.45)
[2021-06-25 08:11] LABS: Puncture Site LRA
[2021-06-25 08:12] LABS: ALV-art Gradient 286.975 mmHg (0-20)
[2021-06-25] MEDS: Dexamethasone 4 mg/ml Vial SLOW IVP SCH ×5 (08:45→20:03)
[2021-06-25] MEDS: hydrALAZINE 25 MG TAB PER TUBE SCH ×2 (08:45→11:06)
[2021-06-25] MEDS: Pantoprazole 40 MG GRANULES PACKET PER TUBE SCH ×4 (08:45→12:35)
[2021-06-25] MEDS: Acetaminophen 325 MG TAB PO PRN (08:46)
[2021-06-25] MEDS: Ascorbic Acid 500 mg Chewable Tablet PO SCH ×2 (08:46→11:05)
[2021-06-25] MEDS: Amlodipine 10 MG TAB PO SCH ×3 (08:46→12:08)
[2021-06-25] MEDS: Apixaban 5 MG TAB PO SCH ×2 (08:46→11:01)
[2021-06-25] MEDS: Cholecalciferol 1,000 UNITS (25 MCG) TAB PO SCH ×2 (08:50→11:05)
[2021-06-25] MEDS ORDERED: Heparin 10,000 UNITS/ 10 ML VIAL SLOW IVP SCH (10:15)
[2021-06-25] MEDS ORDERED: Pantoprazole 40 MG VIAL IVP SCH (10:15)
[2021-06-25] MEDS ORDERED: Acetaminophen 650 MG Suppository PR PRN (10:15)
[2021-06-25 11:28] LABS: Hemoglobin 13.3 g/dL (12.0-16.0); Platelet Count 127 thou/uL (130-400)
[2021-06-25] MEDS: Heparin 25,000 units/D5W 500 ML IVPB SCH (13:18)
[2021-06-25 13:44] LABS: Hemoglobin 13.7 g/dL (12.0-16.0); Mean Corpuscular HGB CONC 33.1 g/dL (32.0-36.0); Mean Corpuscular Hemoglobin 30.6 pg (27.0-31.0); Mean Corpuscular Volume 92.2 fL (78.0-98.0); Platelet Count 129 thou/uL (130-400); RBC Distribution Width 14.5 % (11.5-14.5); Red Blood Cell (RBC) Count 4.48 mill/uL (4.20-5.40); White Blood Cell (WBC) Count 8.6 thou/uL (4.8-10.8)
[2021-06-25] MEDS ORDERED: Fentanyl CADD 100 ML ONE (15:50)
[2021-06-25] MEDS: Lorazepam 2 MG/ML VIAL SLOW IVP PRN (15:53)
[2021-06-25] MEDS: Fentanyl CADD 100 ML IV SCH (15:53)
[2021-06-25] MEDS: BARICITINIB 2 MG TAB PO SCH (20:04)
[2021-06-25 20:26] LABS: PTT 162.9 sec (22.9-36.1)
[2021-06-25] MEDS: Montelukast Sodium 10 mg Tablet PO SCH (21:00)
[2021-06-26] MEDS: Albuterol 200 PUFF (6.7GM INHALER) INH SCH ×5 (00:23→23:08)
[2021-06-26] MEDS: Propofol 1,000 MG/100 ML VIAL IV PRN ×7 (03:09→20:24)
[2021-06-26] MEDS: Heparin 25,000 units/D5W 500 ML IVPB SCH (03:09)
[2021-06-26] MEDS: Dexmedetomidine 1,000 MCG in Sodium Chloride 0.9% 250 ML 240 ML IVPB SCH (03:10)
[2021-06-26 04:53] LABS: Hemoglobin 13.3 g/dL (12.0-16.0); Mean Corpuscular HGB CONC 32.7 g/dL (32.0-36.0); Mean Corpuscular Hemoglobin 30.1 pg (27.0-31.0); Mean Corpuscular Volume 92.1 fL (78.0-98.0); Mean Platelet Volume 8.3 fL (7.4-10.4); Platelet Count 150 thou/uL (130-400); RBC Distribution Width 14.5 % (11.5-14.5); Red Blood Cell (RBC) Count 4.43 mill/uL (4.20-5.40); White Blood Cell (WBC) Count 9.8 thou/uL (4.8-10.8)
[2021-06-26 05:00] LABS: Phosphorus 3.5 mg/dL (2.3-4.7)
[2021-06-26 05:05] LABS: ALT (SGPT) 17 U/L (8-55); AST (SGOT) 12 U/L (5-34); Albumin 2.9 g/dL (3.5-5.0); Alkaline Phosphatase 69 U/L (40-110); Anion Gap 11 mmol/L (10-20); BUN (Urea Nitrogen) 32 mg/dL (9.8-20.1); Bilirubin, Direct 0.2 mg/dL (0.1-0.3); Bilirubin, Total 0.4 mg/dL (0.2-1.2); Calc. Creatinine Clearance 231 mL/min (70-130); Calcium 8.4 mg/dL (7.8-10.44); Carbon Dioxide 27 mmol/L (22-29); Chloride 104 mmol/L (98-107); Globulin 3.5 g/dL (2.4-3.5); Glucose 142 mg/dL (70-105); Magnesium 3.1 mg/dL (1.6-2.6); Potassium 4.8 mmol/L (3.5-5.1); Protein, Total 6.4 g/dL (6.0-8.3); Sodium 137 mmol/L (136-145)
[2021-06-26] MEDS: Levothyroxine Sodium 50 MCG TAB PO SCH (06:00)
[2021-06-26 06:52] LABS: Band 6 % (5-11); Eosinophils 1 % (0-10); Lymphocytes 4 % (21-51); MDiff Complete? YES; Monocytes 1 % (0-10); Neutrophil 88 % (42-75)
[2021-06-26 08:34] LABS: Actual Bicarbonate (HCO3a) 24.3 mEq/L (22-28); Base Excess (BEa) -0.1 mEq/L (-2.0 to +3.0); CO2 Tension 38.9 mmHg (35.0-45.0); Calcium, Ionized (arterial) 1.16 mmol/L (1.12-1.30); Carboxyhemoglobin (COHb) 0.5 gm% (0.0-3.0); Hemoglobin (Hb) 13.6 g/dL (12.0-16.0); Potassium - ABG Lab 4.39 mmol/L (3.70-5.30); pH, Arterial 7.41 (7.35-7.45)
[2021-06-26 08:37] LABS: O2 Tension (PaO2), arterial 55.4 mmHg (80.0-100.0); Puncture Site RRA
[2021-06-26 08:39] LABS: ALV-art Gradient 181.175 mmHg (0-20)
[2021-06-26] MEDS: Pantoprazole 40 MG VIAL IVP SCH (08:47)
[2021-06-26] MEDS: Dexamethasone 4 mg/ml Vial SLOW IVP SCH ×2 (08:47→20:23)
[2021-06-26] MEDS: Lorazepam 2 MG/ML VIAL SLOW IVP PRN ×4 (12:05→20:23)
[2021-06-26] MEDS: Fentanyl CADD 100 ML IV SCH (12:10)
[2021-06-26] MEDS ORDERED: Fentanyl CADD 100 ML ONE (12:10)
[2021-06-26 12:21] LABS: PTT 202.6 sec (22.9-36.1)
[2021-06-26 13:38] LABS: PTT 163.6 sec (22.9-36.1)
[2021-06-26] MEDS: BARICITINIB 2 MG TAB PO SCH (20:22)
[2021-06-27] MEDS: Heparin 25,000 units/D5W 500 ML IVPB SCH ×2 (00:18→23:40)
[2021-06-27] MEDS: Propofol 1,000 MG/100 ML VIAL IV PRN ×9 (00:20→23:32)
[2021-06-27 08:24] LABS: Hemoglobin 13.9 g/dL (12.0-16.0); Mean Corpuscular HGB CONC 33.1 g/dL (32.0-36.0); Mean Corpuscular Hemoglobin 30.5 pg (27.0-31.0); Mean Corpuscular Volume 92.2 fL (78.0-98.0); Mean Platelet Volume 8.8 fL (7.4-10.4); Platelet Count 132 thou/uL (130-400); RBC Distribution Width 14.7 % (11.5-14.5); Red Blood Cell (RBC) Count 4.55 mill/uL (4.20-5.40); White Blood Cell (WBC) Count 9.9 thou/uL (4.8-10.8)
[2021-06-27] MEDS: Albuterol 200 PUFF (6.7GM INHALER) INH SCH ×3 (08:24→19:36)
[2021-06-27 08:37] LABS: Anion Gap 16 mmol/L (10-20); BUN (Urea Nitrogen) 33 mg/dL (9.8-20.1); Calc. Creatinine Clearance 0 mL/min (70-130); Calcium 8.5 mg/dL (7.8-10.44); Carbon Dioxide 21 mmol/L (22-29); Chloride 103 mmol/L (98-107); Glucose 159 mg/dL (70-105); Potassium 5.2 mmol/L (3.5-5.1); Sodium 135 mmol/L (136-145)
[2021-06-27 08:57] LABS: Band 12 % (5-11); Lymphocytes 4 % (21-51); MDiff Complete? YES; Metamyelocyte 2 % (0-0); Monocytes 3 % (0-10); Myelocyte 1 % (0-0); Neutrophil 78 % (42-75); Platelet Morphology Comment Appears Adequate; RBC Morphology Normal
[2021-06-27 09:09] LABS: Magnesium 3.3 mg/dL (1.6-2.6); Phosphorus 4.4 mg/dL (2.3-4.7)
[2021-06-27 09:20] LABS: Actual Bicarbonate (HCO3a) 24.6 mEq/L (22-28); Base Excess (BEa) -0.6 mEq/L (-2.0 to +3.0); CO2 Tension 42.9 mmHg (35.0-45.0); O2 Tension (PaO2), arterial 70.8 mmHg (80.0-100.0); pH, Arterial 7.37 (7.35-7.45)
[2021-06-27 09:21] LABS: Calcium, Ionized (arterial) 1.16 mmol/L (1.12-1.30); Carboxyhemoglobin (COHb) 0.4 gm% (0.0-3.0)
[2021-06-27 09:23] LABS: ALV-art Gradient 160.775 mmHg (0-20)
[2021-06-27] MEDS: Dexamethasone 4 mg/ml Vial SLOW IVP SCH ×2 (09:45→20:00)
[2021-06-27] MEDS: Amlodipine 5 MG TAB PER TUBE SCH (09:45)
[2021-06-27] MEDS: Polyethylene Glycol 3350 17 GM Packet PO SCH (09:46)
[2021-06-27] MEDS: Pantoprazole 40 MG VIAL IVP SCH (09:46)
[2021-06-27] MEDS: Fentanyl CADD 100 ML IV SCH (10:31)
[2021-06-27] MEDS ORDERED: Furosemide 40 MG/4 ML VIAL SLOW IVP SCH (11:00)
[2021-06-27] MEDS: Metoclopramide HCl 10 MG/2 ML VIAL IVP PRN (11:30)
[2021-06-27] MEDS: BARICITINIB 2 MG TAB PO SCH (20:00)
[2021-06-27] MEDS: Lorazepam 2 MG/ML VIAL SLOW IVP PRN (20:00)
[2021-06-28] MEDS: Albuterol 200 PUFF (6.7GM INHALER) INH SCH ×4 (00:48→18:40)
[2021-06-28] MEDS: Propofol 1,000 MG/100 ML VIAL IV PRN ×5 (04:36→20:17)
[2021-06-28 05:23] LABS: ALT (SGPT) 35 U/L (8-55); AST (SGOT) 36 U/L (5-34); Albumin 3.3 g/dL (3.5-5.0); Alkaline Phosphatase 86 U/L (40-110); Anion Gap 20 mmol/L (10-20); BUN (Urea Nitrogen) 55 mg/dL (9.8-20.1); Bilirubin, Total 0.6 mg/dL (0.2-1.2); Calc. Creatinine Clearance 0 mL/min (70-130); Carbon Dioxide 19 mmol/L (22-29); Chloride 99 mmol/L (98-107); Globulin 4.3 g/dL (2.4-3.5); Glucose 142 mg/dL (70-105); Magnesium 3.5 mg/dL (1.6-2.6); Phosphorus 6.2 mg/dL (2.3-4.7); Potassium 5.1 mmol/L (3.5-5.1); Protein, Total 7.6 g/dL (6.0-8.3); Sodium 133 mmol/L (136-145)
[2021-06-28 05:30] LABS: Hemoglobin 14.5 g/dL (12.0-16.0); Lymphocytes 1 % (21-51); MDiff Complete? YES; Mean Corpuscular HGB CONC 33.3 g/dL (32.0-36.0); Mean Corpuscular Hemoglobin 30.5 pg (27.0-31.0); Mean Corpuscular Volume 91.5 fL (78.0-98.0); Mean Platelet Volume 10.5 fL (7.4-10.4); Monocytes 5 % (0-10); Myelocyte 1 % (0-0); Neutrophil 93 % (42-75); Platelet Count 258 thou/uL (130-400); Platelet Morphology Comment Appears Adequate; Red Blood Cell (RBC) Count 4.74 mill/uL (4.20-5.40)
[2021-06-28] MEDS ORDERED: Fentanyl CADD 100 ML ONE (06:37)
[2021-06-28] MEDS: Fentanyl CADD 100 ML IV SCH (06:43)
[2021-06-28] MEDS: Dexamethasone 4 mg/ml Vial SLOW IVP SCH ×2 (07:41→20:17)
[2021-06-28] MEDS: Amlodipine 5 MG TAB PER TUBE SCH (07:41)
[2021-06-28] MEDS: Metoclopramide HCl 10 MG/2 ML VIAL IVP PRN (07:42)
[2021-06-28] MEDS: Polyethylene Glycol 3350 17 GM Packet PO SCH (07:42)
[2021-06-28] MEDS: Pantoprazole 40 MG VIAL IVP SCH (07:42)
[2021-06-28 08:41] LABS: Actual Bicarbonate (HCO3a) 22.2 mEq/L (22-28); CO2 Tension 44.8 mmHg (35.0-45.0); Calcium, Ionized (arterial) 1.14 mmol/L (1.12-1.30); Carboxyhemoglobin (COHb) 0.4 gm% (0.0-3.0); Hemoglobin (Hb) 14.7 g/dL (12.0-16.0); Potassium - ABG Lab 4.88 mmol/L (3.70-5.30); pH, Arterial 7.31 (7.35-7.45)
[2021-06-28 08:46] LABS: Puncture Site RRA
[2021-06-28] MEDS: Cefepime 1 GM in Sodium Chloride 0.9% 100 ML IVPB SCH (12:48)
[2021-06-28] MEDS: Vecuronium 10 MG VIAL IV PRN ×2 (18:23→21:39)
[2021-06-28] MEDS: Lorazepam 2 MG/ML VIAL SLOW IVP PRN (20:18)
[2021-06-28] MEDS: BARICITINIB 2 MG TAB PO SCH (20:18)
[2021-06-29] MEDS: Propofol 1,000 MG/100 ML VIAL IV PRN ×6 (00:20→22:23)
[2021-06-29] MEDS: Heparin 25,000 units/D5W 500 ML IVPB SCH (00:56)
[2021-06-29] MEDS ORDERED: Fentanyl CADD 100 ML ONE ×2 (01:52→19:33)
[2021-06-29] MEDS: Albuterol 200 PUFF (6.7GM INHALER) INH SCH ×5 (02:19→23:46)
[2021-06-29] MEDS: Fentanyl CADD 100 ML IV SCH ×2 (02:46→20:20)
[2021-06-29 04:23] LABS: Hemoglobin 13.6 g/dL (12.0-16.0); Mean Corpuscular HGB CONC 33.1 g/dL (32.0-36.0); Mean Corpuscular Hemoglobin 30.4 pg (27.0-31.0); Mean Corpuscular Volume 91.8 fL (78.0-98.0); Mean Platelet Volume 8.9 fL (7.4-10.4); Platelet Count 223 thou/uL (130-400); RBC Distribution Width 14.9 % (11.5-14.5); Red Blood Cell (RBC) Count 4.49 mill/uL (4.20-5.40); White Blood Cell (WBC) Count 20.2 thou/uL (4.8-10.8)
[2021-06-29 04:24] LABS: Band 3 % (5-11); Lymphocytes 12 % (21-51); MDiff Complete? YES; Monocytes 15 % (0-10); Neutrophil 70 % (42-75); Platelet Morphology Comment Appears Adequate; RBC Morphology Normal
[2021-06-29 04:27] LABS: Phosphorus 5.9 mg/dL (2.3-4.7)
[2021-06-29 04:30] LABS: ALT (SGPT) 40 U/L (8-55); AST (SGOT) 21 U/L (5-34); Alkaline Phosphatase 65 U/L (40-110); Anion Gap 15 mmol/L (10-20); BUN (Urea Nitrogen) 63 mg/dL (9.8-20.1); Bilirubin, Direct 0.5 mg/dL (0.1-0.3); Bilirubin, Total 0.6 mg/dL (0.2-1.2); Calc. Creatinine Clearance 111 mL/min (70-130); Calcium 8.7 mg/dL (7.8-10.44); Carbon Dioxide 23 mmol/L (22-29); Chloride 102 mmol/L (98-107); Globulin 3.6 g/dL (2.4-3.5); Glucose 156 mg/dL (70-105); Magnesium 3.5 mg/dL (1.6-2.6); Protein, Total 6.6 g/dL (6.0-8.3); Sodium 135 mmol/L (136-145)
[2021-06-29] MEDS: Amlodipine 5 MG TAB PER TUBE SCH (07:27)
[2021-06-29] MEDS: Polyethylene Glycol 3350 17 GM Packet PO SCH (07:28)
[2021-06-29] MEDS: Dexamethasone 4 mg/ml Vial SLOW IVP SCH ×2 (07:28→20:21)
[2021-06-29] MEDS: Pantoprazole 40 MG VIAL IVP SCH (07:29)
[2021-06-29 07:58] LABS: Actual Bicarbonate (HCO3a) 22.6 mEq/L (22-28); Base Excess (BEa) -3.5 mEq/L (-2.0 to +3.0); CO2 Tension 44.5 mmHg (35.0-45.0); Calcium, Ionized (arterial) 1.17 mmol/L (1.12-1.30); Carboxyhemoglobin (COHb) 0.3 gm% (0.0-3.0); Hemoglobin (Hb) 14.3 g/dL (12.0-16.0); Potassium - ABG Lab 5.25 mmol/L (3.70-5.30); pH, Arterial 7.32 (7.35-7.45)
[2021-06-29 08:13] LABS: ALV-art Gradient 152.575 mmHg (0-20); Puncture Site RRA
[2021-06-29] MEDS: Cefepime 1 GM in Sodium Chloride 0.9% 100 ML IVPB SCH (13:35)
[2021-06-29] MEDS: Lorazepam 2 MG/ML VIAL SLOW IVP PRN (20:21)
[2021-06-29] MEDS: BARICITINIB 2 MG TAB PO SCH (20:21)
[2021-06-30] MEDS: Heparin 25,000 units/D5W 500 ML IVPB SCH ×2 (00:20→20:40)
[2021-06-30 04:31] LABS: Anion Gap 12 mmol/L (10-20); BUN (Urea Nitrogen) 52 mg/dL (9.8-20.1); Calc. Creatinine Clearance 182 mL/min (70-130); Carbon Dioxide 25 mmol/L (22-29); Chloride 105 mmol/L (98-107); Sodium 137 mmol/L (136-145)
[2021-06-30 04:32] LABS: ALT (SGPT) 33 U/L (8-55); AST (SGOT) 13 U/L (5-34); Alkaline Phosphatase 65 U/L (40-110); Bilirubin, Total 0.6 mg/dL (0.2-1.2); Calcium 8.7 mg/dL (7.8-10.44); Globulin 3.4 g/dL (2.4-3.5); Glucose 148 mg/dL (70-105); Magnesium 3.7 mg/dL (1.6-2.6); Phosphorus 3.7 mg/dL (2.3-4.7); Protein, Total 6.4 g/dL (6.0-8.3)
[2021-06-30 05:15] LABS: Band 9 % (5-11); Hemoglobin 12.6 g/dL (12.0-16.0); Lymphocytes 8 % (21-51); MDiff Complete? YES; Mean Corpuscular HGB CONC 32.9 g/dL (32.0-36.0); Mean Corpuscular Hemoglobin 30.1 pg (27.0-31.0); Mean Corpuscular Volume 91.6 fL (78.0-98.0); Mean Platelet Volume 8.8 fL (7.4-10.4); Metamyelocyte 2 % (0-0); Monocytes 10 % (0-10); Myelocyte 1 % (0-0); Neutrophil 69 % (42-75); Platelet Count 225 thou/uL (130-400); Platelet Morphology Comment Appears Adequate; RBC Morphology Normal; Reactive Lymphocytes 1 % (0-10); Red Blood Cell (RBC) Count 4.17 mill/uL (4.20-5.40); White Blood Cell (WBC) Count 14.6 thou/uL (4.8-10.8)
[2021-06-30] MEDS: Propofol 1,000 MG/100 ML VIAL IV PRN ×5 (06:16→20:39)
[2021-06-30] MEDS: Levothyroxine 100 MCG SDV SLOW IVP SCH (06:20)
[2021-06-30 06:54] LABS: Base Excess (BEa) 0.4 mEq/L (-2.0 to +3.0); CO2 Tension 45.4 mmHg (35.0-45.0); Carboxyhemoglobin (COHb) 0.3 gm% (0.0-3.0); O2 Tension (PaO2), arterial 75.2 mmHg (80.0-100.0); Potassium - ABG Lab 5.27 mmol/L (3.70-5.30); pH, Arterial 7.38 (7.35-7.45)
[2021-06-30 07:00] LABS: Puncture Site RRA
[2021-06-30] MEDS: Albuterol 200 PUFF (6.7GM INHALER) INH SCH ×3 (07:01→18:48)
[2021-06-30] MEDS: Lorazepam 2 MG/ML VIAL SLOW IVP PRN ×2 (08:00→14:00)
[2021-06-30] MEDS: Dexamethasone 4 mg/ml Vial SLOW IVP SCH ×2 (08:00→20:40)
[2021-06-30] MEDS: Pantoprazole 40 MG VIAL IVP SCH (08:01)
[2021-06-30] MEDS: Amlodipine 5 MG TAB PER TUBE SCH (08:01)
[2021-06-30] MEDS: Polyethylene Glycol 3350 17 GM Packet PO SCH (12:07)
[2021-06-30] MEDS: Cefepime 1 GM in Sodium Chloride 0.9% 100 ML IVPB SCH (13:36)
[2021-06-30] MEDS ORDERED: Fentanyl CADD 100 ML ONE (16:04)
[2021-06-30] MEDS: Fentanyl CADD 100 ML IV SCH (16:09)
[2021-06-30] MEDS: BARICITINIB 2 MG TAB PO SCH (20:41)
[2021-07-01] MEDS: Albuterol 200 PUFF (6.7GM INHALER) INH SCH ×4 (00:02→18:28)
[2021-07-01] MEDS: Propofol 1,000 MG/100 ML VIAL IV PRN ×6 (00:49→23:25)
[2021-07-01] MEDS: Lorazepam 2 MG/ML VIAL SLOW IVP PRN ×3 (04:15→20:55)
[2021-07-01] MEDS: Vecuronium 10 MG VIAL IV PRN ×2 (04:15→20:55)
[2021-07-01 05:21] LABS: Band 4 % (5-11); Hemoglobin 12.2 g/dL (12.0-16.0); Lymphocytes 13 % (21-51); MDiff Complete? YES; Mean Corpuscular HGB CONC 33.6 g/dL (32.0-36.0); Mean Corpuscular Hemoglobin 31.1 pg (27.0-31.0); Mean Corpuscular Volume 92.6 fL (78.0-98.0); Monocytes 9 % (0-10); Neutrophil 74 % (42-75); Platelet Count 220 thou/uL (130-400); Platelet Morphology Comment Appears Adequate; RBC Morphology Normal; Red Blood Cell (RBC) Count 3.93 mill/uL (4.20-5.40); White Blood Cell (WBC) Count 13.6 thou/uL (4.8-10.8)
[2021-07-01 05:32] LABS: ALT (SGPT) 32 U/L (8-55); AST (SGOT) 14 U/L (5-34); Albumin 2.9 g/dL (3.5-5.0); Alkaline Phosphatase 60 U/L (40-110); Anion Gap 13 mmol/L (10-20); BUN (Urea Nitrogen) 49 mg/dL (9.8-20.1); Bilirubin, Total 0.6 mg/dL (0.2-1.2); Calc. Creatinine Clearance 247 mL/min (70-130); Carbon Dioxide 27 mmol/L (22-29); Chloride 107 mmol/L (98-107); Globulin 3.5 g/dL (2.4-3.5); Glucose 150 mg/dL (70-105); Magnesium 3.4 mg/dL (1.6-2.6); Phosphorus 3.5 mg/dL (2.3-4.7); Potassium 5.6 mmol/L (3.5-5.1); Protein, Total 6.4 g/dL (6.0-8.3); Sodium 141 mmol/L (136-145)
[2021-07-01] MEDS ORDERED: Piperacillin/Tazobactam 3.375 GM in Sodium Chloride 0.9% 100 ML IVPB SCH (08:00)
[2021-07-01] MEDS: Levothyroxine 100 MCG SDV SLOW IVP SCH (08:07)
[2021-07-01] MEDS: Amlodipine 5 MG TAB PER TUBE SCH (08:17)
[2021-07-01] MEDS: Dexamethasone 4 mg/ml Vial SLOW IVP SCH ×2 (08:17→20:56)
[2021-07-01] MEDS: Polyethylene Glycol 3350 17 GM Packet PO SCH (08:17)
[2021-07-01] MEDS: Pantoprazole 40 MG VIAL IVP SCH (08:18)
[2021-07-01 09:00] LABS: Actual Bicarbonate (HCO3a) 25.8 mEq/L (22-28); CO2 Tension 46.1 mmHg (35.0-45.0); Calcium, Ionized (arterial) 1.21 mmol/L (1.12-1.30); Carboxyhemoglobin (COHb) 0.1 gm% (0.0-3.0); Hemoglobin (Hb) 12.9 g/dL (12.0-16.0); O2 Tension (PaO2), arterial 98.2 mmHg (80.0-100.0); pH, Arterial 7.37 (7.35-7.45)
[2021-07-01 09:04] LABS: Puncture Site RRA
[2021-07-01 09:05] LABS: ALV-art Gradient 129.375 mmHg (0-20)
[2021-07-01] MEDS: Apixaban 5 MG TAB PO SCH ×2 (09:25→20:57)
[2021-07-01] MEDS ORDERED: Fentanyl CADD 100 ML ONE (12:18)
[2021-07-01] MEDS: Fentanyl CADD 100 ML IV SCH ×2 (12:20→23:34)
[2021-07-01] MEDS: Cefepime 1 GM in Sodium Chloride 0.9% 100 ML IVPB SCH (14:00)
[2021-07-01] MEDS: BARICITINIB 2 MG TAB PO SCH (20:56)
[2021-07-02] MEDS: Albuterol 200 PUFF (6.7GM INHALER) INH SCH ×4 (01:12→20:47)
[2021-07-02] MEDS: Propofol 1,000 MG/100 ML VIAL IV PRN ×6 (04:19→23:15)
[2021-07-02 04:49] LABS: #Lymphocytes 0.4 thou/uL (1.20-3.40); #Monocytes 1.4 thou/uL (0.11-0.59); #Neutrophils 7.8 thou/uL (1.40-6.50); %Eosinophils 0.4 % (0.0-10.0); %Lymphocytes 4.3 % (21.0-51.0); %Monocytes 14.6 % (0.0-10.0); %Neutrophils 80.8 % (42.0-75.0); Mean Corpuscular HGB CONC 32.4 g/dL (32.0-36.0); Mean Corpuscular Hemoglobin 30.3 pg (27.0-31.0); Mean Corpuscular Volume 93.5 fL (78.0-98.0); Mean Platelet Volume 9.2 fL (7.4-10.4); Platelet Count 210 thou/uL (130-400); RBC Distribution Width 14.9 % (11.5-14.5); Red Blood Cell (RBC) Count 3.94 mill/uL (4.20-5.40); White Blood Cell (WBC) Count 9.6 thou/uL (4.8-10.8)
[2021-07-02 05:16] LABS: Phosphorus 3.5 mg/dL (2.3-4.7)
[2021-07-02 05:20] LABS: ALT (SGPT) 29 U/L (8-55); AST (SGOT) 14 U/L (5-34); Albumin 2.9 g/dL (3.5-5.0); Alkaline Phosphatase 57 U/L (40-110); Anion Gap 13 mmol/L (10-20); BUN (Urea Nitrogen) 43 mg/dL (9.8-20.1); Bilirubin, Direct 0.2 mg/dL (0.1-0.3); Bilirubin, Total 0.6 mg/dL (0.2-1.2); Calc. Creatinine Clearance 274 mL/min (70-130); Calcium 9.1 mg/dL (7.8-10.44); Carbon Dioxide 26 mmol/L (22-29); Chloride 108 mmol/L (98-107); Globulin 3.3 g/dL (2.4-3.5); Glucose 107 mg/dL (70-105); Potassium 5.9 mmol/L (3.5-5.1); Protein, Total 6.2 g/dL (6.0-8.3); Sodium 141 mmol/L (136-145)
[2021-07-02] MEDS: Levothyroxine 100 MCG SDV SLOW IVP SCH (05:59)
[2021-07-02 08:32] LABS: Base Excess (BEa) 0.3 mEq/L (-2.0 to +3.0); CO2 Tension 40.7 mmHg (35.0-45.0); Calcium, Ionized (arterial) 1.24 mmol/L (1.12-1.30); Carboxyhemoglobin (COHb) 0.4 gm% (0.0-3.0); Hemoglobin (Hb) 12.5 g/dL (12.0-16.0); O2 Tension (PaO2), arterial 90.3 mmHg (80.0-100.0); Potassium - ABG Lab 5.39 mmol/L (3.70-5.30); pH, Arterial 7.41 (7.35-7.45)
[2021-07-02 08:33] LABS: ALV-art Gradient 144.025 mmHg (0-20); Puncture Site RRA
[2021-07-02] MEDS ORDERED: Furosemide 40 MG/4 ML VIAL SLOW IVP SCH (09:00)
[2021-07-02] MEDS: Fentanyl CADD 100 ML IV SCH ×2 (10:03→22:52)
[2021-07-02] MEDS: Dexamethasone 4 mg/ml Vial SLOW IVP SCH ×2 (10:41→21:47)
[2021-07-02] MEDS: Apixaban 5 MG TAB PO SCH ×2 (10:41→21:46)
[2021-07-02] MEDS: Amlodipine 5 MG TAB PER TUBE SCH (10:41)
[2021-07-02] MEDS: Pantoprazole 40 MG VIAL IVP SCH (10:42)
[2021-07-02] MEDS: Polyethylene Glycol 3350 17 GM Packet PO SCH (10:43)
[2021-07-02] MEDS: Cefepime 1 GM in Sodium Chloride 0.9% 100 ML IVPB SCH (14:50)
[2021-07-02] MEDS: Lorazepam 2 MG/ML VIAL SLOW IVP PRN (19:57)
[2021-07-02] MEDS: BARICITINIB 2 MG TAB PO SCH (21:47)
[2021-07-02] MEDS ORDERED: Fentanyl CADD 100 ML ONE (22:40)
[2021-07-03] MEDS: Propofol 1,000 MG/100 ML VIAL IV PRN ×9 (02:25→23:50)
[2021-07-03] MEDS: Albuterol 200 PUFF (6.7GM INHALER) INH SCH ×4 (02:37→19:26)
[2021-07-03 04:56] LABS: Hemoglobin 11.6 g/dL (12.0-16.0); Hypochromia SLIGHT = 6-15 cells (100X) (0-5/hpf); Lymphocytes 13 % (21-51); MDiff Complete? YES; Mean Corpuscular HGB CONC 30.4 g/dL (32.0-36.0); Mean Corpuscular Hemoglobin 28.5 pg (27.0-31.0); Mean Corpuscular Volume 93.6 fL (78.0-98.0); Mean Platelet Volume 8.9 fL (7.4-10.4); Monocytes 7 % (0-10); Neutrophil 80 % (42-75); Platelet Count 218 thou/uL (130-400); Platelet Morphology Comment Appears Adequate; RBC Distribution Width 15.2 % (11.5-14.5); Red Blood Cell (RBC) Count 4.06 mill/uL (4.20-5.40); White Blood Cell (WBC) Count 12.7 thou/uL (4.8-10.8)
[2021-07-03 05:02] LABS: ALT (SGPT) 55 U/L (8-55); AST (SGOT) 28 U/L (5-34); Albumin 2.9 g/dL (3.5-5.0); Alkaline Phosphatase 62 U/L (40-110); Anion Gap 12 mmol/L (10-20); BUN (Urea Nitrogen) 44 mg/dL (9.8-20.1); Bilirubin, Total 0.8 mg/dL (0.2-1.2); Calc. Creatinine Clearance 249 mL/min (70-130); Calcium 9.3 mg/dL (7.8-10.44); Carbon Dioxide 27 mmol/L (22-29); Chloride 107 mmol/L (98-107); Globulin 3.2 g/dL (2.4-3.5); Glucose 152 mg/dL (70-105); Magnesium 2.8 mg/dL (1.6-2.6); Potassium 5.8 mmol/L (3.5-5.1); Protein, Total 6.1 g/dL (6.0-8.3); Sodium 140 mmol/L (136-145)
[2021-07-03] MEDS: Levothyroxine 100 MCG SDV SLOW IVP SCH (05:34)
[2021-07-03 07:21] LABS: Actual Bicarbonate (HCO3a) 28.8 mEq/L (22-28); Base Excess (BEa) 2.5 mEq/L (-2.0 to +3.0); CO2 Tension 52.2 mmHg (35.0-45.0); Calcium, Ionized (arterial) 1.27 mmol/L (1.12-1.30); Carboxyhemoglobin (COHb) 0.5 gm% (0.0-3.0); Hemoglobin (Hb) 12.1 g/dL (12.0-16.0); O2 Tension (PaO2), arterial 105.7 mmHg (80.0-100.0); Potassium - ABG Lab 6.01 mmol/L (3.70-5.30); pH, Arterial 7.36 (7.35-7.45)
[2021-07-03 07:23] LABS: Puncture Site RRA
[2021-07-03] MEDS: Pantoprazole 40 MG VIAL IVP SCH (09:05)
[2021-07-03] MEDS: Dexamethasone 4 mg/ml Vial SLOW IVP SCH ×2 (09:06→21:24)
[2021-07-03] MEDS: Amlodipine 5 MG TAB PER TUBE SCH (09:06)
[2021-07-03] MEDS: Apixaban 5 MG TAB PO SCH ×2 (09:07→21:24)
[2021-07-03] MEDS: Polyethylene Glycol 3350 17 GM Packet PO SCH (09:08)
[2021-07-03] MEDS: Cefepime 1 GM in Sodium Chloride 0.9% 100 ML IVPB SCH (12:59)
[2021-07-03] MEDS: Fentanyl CADD 100 ML IV SCH (13:26)
[2021-07-03] MEDS: BARICITINIB 2 MG TAB PO SCH (21:24)
[2021-07-03] MEDS: Lorazepam 2 MG/ML VIAL SLOW IVP PRN (21:58)
[2021-07-04] MEDS: Albuterol 200 PUFF (6.7GM INHALER) INH SCH ×4 (00:41→19:32)
[2021-07-04] MEDS: Propofol 1,000 MG/100 ML VIAL IV PRN ×8 (02:06→20:17)
[2021-07-04] MEDS ORDERED: Fentanyl CADD 100 ML ONE (02:54)
[2021-07-04] MEDS: Fentanyl CADD 100 ML IV SCH ×2 (02:59→17:47)
[2021-07-04 04:35] LABS: #Lymphocytes 0.7 thou/uL (1.20-3.40); #Monocytes 0.8 thou/uL (0.11-0.59); #Neutrophils 7.4 thou/uL (1.40-6.50); %Basophils 0.1 % (0.0-1.0); %Eosinophils 0.2 % (0.0-10.0); %Lymphocytes 7.6 % (21.0-51.0); %Monocytes 9.1 % (0.0-10.0); Mean Corpuscular HGB CONC 32.3 g/dL (32.0-36.0); Mean Corpuscular Hemoglobin 30.7 pg (27.0-31.0); Mean Platelet Volume 9.3 fL (7.4-10.4); Platelet Count 203 thou/uL (130-400); Red Blood Cell (RBC) Count 3.59 mill/uL (4.20-5.40); White Blood Cell (WBC) Count 8.9 thou/uL (4.8-10.8)
[2021-07-04 05:01] LABS: ALT (SGPT) 53 U/L (8-55); AST (SGOT) 18 U/L (5-34); Albumin 2.8 g/dL (3.5-5.0); Alkaline Phosphatase 55 U/L (40-110); Anion Gap 11 mmol/L (10-20); BUN (Urea Nitrogen) 39 mg/dL (9.8-20.1); Bilirubin, Total 0.7 mg/dL (0.2-1.2); Calc. Creatinine Clearance 0 mL/min (70-130); Calcium 9.1 mg/dL (7.8-10.44); Carbon Dioxide 28 mmol/L (22-29); Chloride 107 mmol/L (98-107); Glucose 145 mg/dL (70-105); Magnesium 2.5 mg/dL (1.6-2.6); Phosphorus 3.5 mg/dL (2.3-4.7); Potassium 5.8 mmol/L (3.5-5.1); Protein, Total 5.8 g/dL (6.0-8.3); Sodium 140 mmol/L (136-145)
[2021-07-04] MEDS: Levothyroxine 100 MCG SDV SLOW IVP SCH (05:47)
[2021-07-04 07:58] LABS: Actual Bicarbonate (HCO3a) 28.3 mEq/L (22-28); Base Excess (BEa) 3.1 mEq/L (-2.0 to +3.0); CO2 Tension 45.6 mmHg (35.0-45.0); Calcium, Ionized (arterial) 1.23 mmol/L (1.12-1.30); Carboxyhemoglobin (COHb) 0.2 gm% (0.0-3.0); Hemoglobin (Hb) 11.2 g/dL (12.0-16.0); Potassium - ABG Lab 5.55 mmol/L (3.70-5.30); pH, Arterial 7.41 (7.35-7.45)
[2021-07-04 08:08] LABS: Puncture Site RRA
[2021-07-04] MEDS: Dexamethasone 4 mg/ml Vial SLOW IVP SCH ×2 (08:26→20:02)
[2021-07-04] MEDS: Pantoprazole 40 MG VIAL IVP SCH (08:26)
[2021-07-04] MEDS: Polyethylene Glycol 3350 17 GM Packet PO SCH (08:26)
[2021-07-04] MEDS: Apixaban 5 MG TAB PO SCH ×2 (08:27→20:02)
[2021-07-04] MEDS: Amlodipine 5 MG TAB PER TUBE SCH (08:27)
[2021-07-04] MEDS: Cefepime 1 GM in Sodium Chloride 0.9% 100 ML IVPB SCH (13:22)
[2021-07-04] MEDS: Lorazepam 2 MG/ML VIAL SLOW IVP PRN (21:23)
[2021-07-05] MEDS: Propofol 500 MG/50 ML VIAL IV PRN ×6 (01:34→09:48)
[2021-07-05 04:45] LABS: ALT (SGPT) 47 U/L (8-55); AST (SGOT) 14 U/L (5-34); Albumin 3.2 g/dL (3.5-5.0); Alkaline Phosphatase 60 U/L (40-110); Anion Gap 13 mmol/L (10-20); BUN (Urea Nitrogen) 35 mg/dL (9.8-20.1); Bilirubin, Total 0.8 mg/dL (0.2-1.2); Calc. Creatinine Clearance 268 mL/min (70-130); Carbon Dioxide 28 mmol/L (22-29); Chloride 105 mmol/L (98-107); Globulin 2.7 g/dL (2.4-3.5); Glucose 130 mg/dL (70-105); Magnesium 2.3 mg/dL (1.6-2.6); Phosphorus 3.7 mg/dL (2.3-4.7); Potassium 5.7 mmol/L (3.5-5.1); Protein, Total 5.9 g/dL (6.0-8.3); Sodium 140 mmol/L (136-145)
[2021-07-05] MEDS ORDERED: Fentanyl CADD 100 ML ONE (04:52)
[2021-07-05 05:05] LABS: #Lymphocytes 0.8 thou/uL (1.20-3.40); #Neutrophils 9.1 thou/uL (1.40-6.50); %Basophils 0.3 % (0.0-1.0); %Eosinophils 0.3 % (0.0-10.0); %Lymphocytes 7.6 % (21.0-51.0); %Monocytes 8.9 % (0.0-10.0); %Neutrophils 82.9 % (42.0-75.0); Hemoglobin 11.6 g/dL (12.0-16.0); Mean Corpuscular HGB CONC 31.6 g/dL (32.0-36.0); Mean Corpuscular Volume 95.1 fL (78.0-98.0); Mean Platelet Volume 9.2 fL (7.4-10.4); Platelet Count 219 thou/uL (130-400); RBC Distribution Width 15.1 % (11.5-14.5); Red Blood Cell (RBC) Count 3.86 mill/uL (4.20-5.40)
[2021-07-05] MEDS: Fentanyl CADD 100 ML IV SCH (05:35)
[2021-07-05] MEDS: Levothyroxine 100 MCG SDV SLOW IVP SCH (05:54)
[2021-07-05 08:12] LABS: Actual Bicarbonate (HCO3a) 24.8 mEq/L (22-28); Base Excess (BEa) 0.4 mEq/L (-2.0 to +3.0); CO2 Tension 38.9 mmHg (35.0-45.0); Calcium, Ionized (arterial) 1.27 mmol/L (1.12-1.30); Carboxyhemoglobin (COHb) 0.4 gm% (0.0-3.0); Hemoglobin (Hb) 12.6 g/dL (12.0-16.0); O2 Tension (PaO2), arterial 114.3 mmHg (80.0-100.0); Potassium - ABG Lab 5.06 mmol/L (3.70-5.30); pH, Arterial 7.42 (7.35-7.45)
[2021-07-05] MEDS ORDERED: Dextrose 50% Abboject 50 ML SYRINGE SLOW IVP SCH (08:15)
[2021-07-05] MEDS ORDERED: Insulin Regular 300 UNITS/3 ML VIAL IVP SCH (08:15)
[2021-07-05] MEDS: Albuterol 200 PUFF (6.7GM INHALER) INH SCH ×4 (08:52→19:20)
[2021-07-05 08:54] LABS: ALV-art Gradient 122.275 mmHg (0-20); Puncture Site RRA
[2021-07-05] MEDS: Pantoprazole 40 MG VIAL IVP SCH (10:00)
[2021-07-05] MEDS: Polyethylene Glycol 3350 17 GM Packet PO SCH (10:00)
[2021-07-05] MEDS: Dexamethasone 4 mg/ml Vial SLOW IVP SCH ×2 (10:01→20:03)
[2021-07-05] MEDS: Apixaban 5 MG TAB PO SCH ×2 (10:01→20:03)
[2021-07-05] MEDS: Amlodipine 5 MG TAB PER TUBE SCH (10:01)
[2021-07-05 13:37] LABS: Anion Gap 12 mmol/L (10-20); BUN (Urea Nitrogen) 34 mg/dL (9.8-20.1); Calc. Creatinine Clearance 278 mL/min (70-130); Carbon Dioxide 26 mmol/L (22-29); Chloride 108 mmol/L (98-107); Glucose 132 mg/dL (70-105); Potassium 5.1 mmol/L (3.5-5.1); Sodium 141 mmol/L (136-145)
[2021-07-06] MEDS: Albuterol 200 PUFF (6.7GM INHALER) INH SCH ×5 (00:23→23:56)
[2021-07-06] MEDS: Levothyroxine 100 MCG SDV SLOW IVP SCH (05:09)
[2021-07-06 05:13] LABS: Hemoglobin 11.7 g/dL (12.0-16.0); Mean Corpuscular HGB CONC 31.9 g/dL (32.0-36.0); Mean Corpuscular Hemoglobin 30.1 pg (27.0-31.0); Mean Corpuscular Volume 94.5 fL (78.0-98.0); Mean Platelet Volume 9.4 fL (7.4-10.4); Platelet Count 190 thou/uL (130-400); RBC Distribution Width 14.8 % (11.5-14.5); Red Blood Cell (RBC) Count 3.88 mill/uL (4.20-5.40); White Blood Cell (WBC) Count 9.9 thou/uL (4.8-10.8)
[2021-07-06 05:26] LABS: ALT (SGPT) 41 U/L (8-55); AST (SGOT) 14 U/L (5-34); Albumin 3.3 g/dL (3.5-5.0); Alkaline Phosphatase 64 U/L (40-110); Anion Gap 14 mmol/L (10-20); BUN (Urea Nitrogen) 37 mg/dL (9.8-20.1); Bilirubin, Total 0.8 mg/dL (0.2-1.2); Calc. Creatinine Clearance 280 mL/min (70-130); Calcium 9.3 mg/dL (7.8-10.44); Carbon Dioxide 27 mmol/L (22-29); Chloride 107 mmol/L (98-107); Globulin 2.8 g/dL (2.4-3.5); Glucose 152 mg/dL (70-105); Magnesium 2.3 mg/dL (1.6-2.6); Potassium 5.5 mmol/L (3.5-5.1); Protein, Total 6.1 g/dL (6.0-8.3); Sodium 142 mmol/L (136-145)
[2021-07-06 05:57] LABS: Lymphocytes 6 % (21-51); MDiff Complete? YES; Metamyelocyte 1 % (0-0); Monocytes 7 % (0-10); Myelocyte 1 % (0-0); Neutrophil 85 % (42-75)
[2021-07-06 08:37] LABS: Actual Bicarbonate (HCO3a) 25.5 mEq/L (22-28); Base Excess (BEa) 0.8 mEq/L (-2.0 to +3.0); CO2 Tension 40.7 mmHg (35.0-45.0); Calcium, Ionized (arterial) 1.23 mmol/L (1.12-1.30); Carboxyhemoglobin (COHb) 0.8 gm% (0.0-3.0); Hemoglobin (Hb) 14.7 g/dL (12.0-16.0); O2 Tension (PaO2), arterial 88.6 mmHg (80.0-100.0); Potassium - ABG Lab 5.08 mmol/L (3.70-5.30); pH, Arterial 7.41 (7.35-7.45)
[2021-07-06] MEDS ORDERED: Insulin Regular 300 UNITS/3 ML VIAL IVP SCH (09:00)
[2021-07-06] MEDS ORDERED: Dextrose 50% Abboject 50 ML SYRINGE SLOW IVP PRN (09:00)
[2021-07-06 09:52] LABS: ALV-art Gradient 145.725 mmHg (0-20); Puncture Site RRA
[2021-07-06] MEDS: Amlodipine 5 MG TAB PER TUBE SCH (10:04)
[2021-07-06] MEDS: Pantoprazole 40 MG VIAL IVP SCH (10:04)
[2021-07-06] MEDS: Dexamethasone 4 mg/ml Vial SLOW IVP SCH ×2 (10:05→21:36)
[2021-07-06] MEDS: Apixaban 5 MG TAB PO SCH ×2 (10:05→19:57)
[2021-07-06] MEDS: LOKELMA 10 GM PACKET PO SCH (10:05)
[2021-07-06] MEDS: Polyethylene Glycol 3350 17 GM Packet PO SCH (10:07)
[2021-07-06] MEDS ORDERED: ALPRAZolam 0.5 MG TAB PO SCH (10:15)
[2021-07-06] MEDS: ALPRAZolam 0.5 MG TAB PO SCH (19:57)
[2021-07-06] MEDS: Morphine 2 MG/ML VIAL SLOW IVP PRN (22:17)
[2021-07-07 06:21] LABS: #Lymphocytes 0.5 thou/uL (1.20-3.40); #Monocytes 0.6 thou/uL (0.11-0.59); #Neutrophils 11.9 thou/uL (1.40-6.50); %Basophils 0.3 % (0.0-1.0); %Lymphocytes 3.8 % (21.0-51.0); %Monocytes 4.9 % (0.0-10.0); Hemoglobin 12.5 g/dL (12.0-16.0); Mean Corpuscular HGB CONC 32.7 g/dL (32.0-36.0); Mean Corpuscular Hemoglobin 30.4 pg (27.0-31.0); Mean Corpuscular Volume 93.2 fL (78.0-98.0); Mean Platelet Volume 8.8 fL (7.4-10.4); Platelet Count 169 thou/uL (130-400); Red Blood Cell (RBC) Count 4.09 mill/uL (4.20-5.40); White Blood Cell (WBC) Count 13.1 thou/uL (4.8-10.8)
[2021-07-07 06:36] LABS: Phosphorus 2.3 mg/dL (2.3-4.7)
[2021-07-07 06:38] LABS: ALT (SGPT) 35 U/L (8-55); AST (SGOT) 19 U/L (5-34); Albumin 3.1 g/dL (3.5-5.0); Alkaline Phosphatase 70 U/L (40-110); Anion Gap 14 mmol/L (10-20); BUN (Urea Nitrogen) 24 mg/dL (9.8-20.1); Bilirubin, Total 1.3 mg/dL (0.2-1.2); Calc. Creatinine Clearance 302 mL/min (70-130); Carbon Dioxide 25 mmol/L (22-29); Chloride 109 mmol/L (98-107); Globulin 2.8 g/dL (2.4-3.5); Glucose 145 mg/dL (70-105); Magnesium 1.9 mg/dL (1.6-2.6); Potassium 4.5 mmol/L (3.5-5.1); Protein, Total 5.9 g/dL (6.0-8.3); Sodium 143 mmol/L (136-145)
[2021-07-07] MEDS: Levothyroxine 100 MCG SDV SLOW IVP SCH (08:45)
[2021-07-07] MEDS: Pantoprazole 40 MG VIAL IVP SCH (09:04)
[2021-07-07] MEDS: Dexamethasone 4 mg/ml Vial SLOW IVP SCH ×2 (09:08→21:28)
[2021-07-07] MEDS: LOKELMA 10 GM PACKET PO SCH (09:10)
[2021-07-07] MEDS: Apixaban 5 MG TAB PO SCH ×2 (09:10→19:31)
[2021-07-07] MEDS: Amlodipine 5 MG TAB PER TUBE SCH (09:10)
[2021-07-07] MEDS: Polyethylene Glycol 3350 17 GM Packet PO SCH (09:10)
[2021-07-07] MEDS: ALPRAZolam 0.5 MG TAB PO SCH ×2 (09:10→21:27)
[2021-07-07] MEDS ORDERED: Metoprolol Tartrate 5 MG/5 ML VIAL IVP SCH (09:45)
[2021-07-07] MEDS ORDERED: Lorazepam 2 MG/ML VIAL SLOW IVP PRN (13:06)
[2021-07-07] MEDS: Albuterol 200 PUFF (6.7GM INHALER) INH SCH (13:30)
[2021-07-07] MEDS: Montelukast Sodium 10 mg Tablet PO SCH (19:31)
[2021-07-07] MEDS: Metoprolol Tartrate 25 MG TAB PO SCH (19:32)
[2021-07-07] MEDS ORDERED: Metoprolol Tartrate 25 MG TAB PER TUBE SCH (20:45)
[2021-07-07 21:06] LABS: Hemoglobin 12.3 g/dL (12.0-16.0); Mean Corpuscular HGB CONC 33.4 g/dL (32.0-36.0); Mean Corpuscular Hemoglobin 30.9 pg (27.0-31.0); Mean Corpuscular Volume 92.7 fL (78.0-98.0); Mean Platelet Volume 8.9 fL (7.4-10.4); Platelet Count 161 thou/uL (130-400); RBC Distribution Width 15.4 % (11.5-14.5); Red Blood Cell (RBC) Count 3.97 mill/uL (4.20-5.40); White Blood Cell (WBC) Count 13.3 thou/uL (4.8-10.8)
[2021-07-07 21:25] LABS: Anion Gap 14 mmol/L (10-20); BUN (Urea Nitrogen) 24 mg/dL (9.8-20.1); Calc. Creatinine Clearance 289 mL/min (70-130); Carbon Dioxide 24 mmol/L (22-29); Chloride 110 mmol/L (98-107); Glucose 128 mg/dL (70-105); Magnesium 1.9 mg/dL (1.6-2.6); Potassium 3.8 mmol/L (3.5-5.1); Sodium 144 mmol/L (136-145)
[2021-07-07 21:28] LABS: Troponin I 0.056 ng/mL (< 0.028)
[2021-07-07 21:39] LABS: Band 9 % (5-11); Lymphocytes 5 % (21-51); MDiff Complete? YES; Monocytes 6 % (0-10); Neutrophil 80 % (42-75); Nucleated RBC 1 % (0); Platelet Morphology Comment Appears Adequate; Polychromasia SLIGHT = 2-3 cells (100X) (0-2/hpf)
[2021-07-07] MEDS: Mometasone 100 MCG/Formoterol 5 MCG 120 PUFF INHALER INH SCH (22:27)
[2021-07-08 04:47] LABS: Mean Corpuscular HGB CONC 32.4 g/dL (32.0-36.0); Mean Corpuscular Hemoglobin 30.3 pg (27.0-31.0); Mean Corpuscular Volume 93.4 fL (78.0-98.0); Mean Platelet Volume 9.1 fL (7.4-10.4); Platelet Count 142 thou/uL (130-400); RBC Distribution Width 15.4 % (11.5-14.5); Red Blood Cell (RBC) Count 3.95 mill/uL (4.20-5.40); White Blood Cell (WBC) Count 11.7 thou/uL (4.8-10.8)
[2021-07-08 05:04] LABS: ALT (SGPT) 33 U/L (8-55); AST (SGOT) 21 U/L (5-34); Alkaline Phosphatase 69 U/L (40-110); Anion Gap 14 mmol/L (10-20); BUN (Urea Nitrogen) 25 mg/dL (9.8-20.1); Bilirubin, Total 1.7 mg/dL (0.2-1.2); Calc. Creatinine Clearance 302 mL/min (70-130); Calcium 8.9 mg/dL (7.8-10.44); Carbon Dioxide 24 mmol/L (22-29); Chloride 110 mmol/L (98-107); Globulin 2.6 g/dL (2.4-3.5); Glucose 145 mg/dL (70-105); Magnesium 1.9 mg/dL (1.6-2.6); Phosphorus 3.2 mg/dL (2.3-4.7); Potassium 4.2 mmol/L (3.5-5.1); Protein, Total 5.6 g/dL (6.0-8.3); Sodium 144 mmol/L (136-145)
[2021-07-08 06:02] LABS: Anisocytosis SLIGHT = 6-15 cells (100X) (0-5/hpf); Band 10 % (5-11); Lymphocytes 4 % (21-51); MDiff Complete? YES; Monocytes 3 % (0-10); Neutrophil 83 % (42-75); Platelet Morphology Comment Appears Adequate
[2021-07-08] MEDS: Levothyroxine 100 MCG SDV SLOW IVP SCH (06:03)
[2021-07-08] MEDS: Mometasone 100 MCG/Formoterol 5 MCG 120 PUFF INHALER INH SCH ×2 (07:19→18:41)
[2021-07-08] MEDS: Pantoprazole 40 MG VIAL IVP SCH (07:46)
[2021-07-08] MEDS: Amlodipine 5 MG TAB PER TUBE SCH (07:46)
[2021-07-08] MEDS: Polyethylene Glycol 3350 17 GM Packet PO SCH (07:46)
[2021-07-08] MEDS: Apixaban 5 MG TAB PO SCH ×2 (07:46→21:53)
[2021-07-08] MEDS: ALPRAZolam 0.5 MG TAB PO SCH ×2 (07:46→21:52)
[2021-07-08] MEDS: Dexamethasone 4 mg/ml Vial SLOW IVP SCH ×2 (07:46→21:53)
[2021-07-08] MEDS: Metoprolol Tartrate 25 MG TAB PO SCH ×2 (07:47→21:52)
[2021-07-08] MEDS: Montelukast Sodium 10 mg Tablet PO SCH (21:53)
[2021-07-09 04:12] LABS: Actual Bicarbonate (HCO3a) 24.4 mEq/L (22-28); Base Excess (BEa) 1.7 mEq/L (-2.0 to +3.0); CO2 Tension 31.9 mmHg (35.0-45.0); Carboxyhemoglobin (COHb) 0.4 gm% (0.0-3.0); Hemoglobin (Hb) 12.1 g/dL (12.0-16.0); O2 Tension (PaO2), arterial 66.8 mmHg (80.0-100.0)
[2021-07-09 04:38] LABS: ALT (SGPT) 33 U/L (8-55); AST (SGOT) 16 U/L (5-34); Albumin 3.1 g/dL (3.5-5.0); Alkaline Phosphatase 71 U/L (40-110); Anion Gap 15 mmol/L (10-20); BUN (Urea Nitrogen) 29 mg/dL (9.8-20.1); Bilirubin, Total 1.6 mg/dL (0.2-1.2); Calc. Creatinine Clearance 275 mL/min (70-130); Carbon Dioxide 24 mmol/L (22-29); Chloride 111 mmol/L (98-107); Globulin 2.5 g/dL (2.4-3.5); Glucose 137 mg/dL (70-105); Protein, Total 5.6 g/dL (6.0-8.3); Sodium 146 mmol/L (136-145)
[2021-07-09 04:54] LABS: ALV-art Gradient 150.005 mmHg (0-20); Puncture Site RRA
[2021-07-09 05:00] LABS: Hemoglobin 12.1 g/dL (12.0-16.0); Mean Corpuscular Hemoglobin 29.8 pg (27.0-31.0); Mean Corpuscular Volume 93.3 fL (78.0-98.0); Platelet Count 146 thou/uL (130-400); RBC Distribution Width 15.4 % (11.5-14.5); Red Blood Cell (RBC) Count 4.04 mill/uL (4.20-5.40); White Blood Cell (WBC) Count 13.3 thou/uL (4.8-10.8)
[2021-07-09] MEDS ORDERED: Morphine 4 MG/ML VIAL SLOW IVP SCH (06:00)
[2021-07-09 06:19] LABS: Band 2 % (5-11); Lymphocytes 2 % (21-51); MDiff Complete? YES; Monocytes 3 % (0-10); Neutrophil 93 % (42-75)
[2021-07-09] MEDS: Levothyroxine 100 MCG SDV SLOW IVP SCH (06:38)
[2021-07-09] MEDS: Mometasone 100 MCG/Formoterol 5 MCG 120 PUFF INHALER INH SCH ×2 (08:36→18:33)
[2021-07-09] MEDS: ALPRAZolam 0.5 MG TAB PO SCH ×2 (08:57→21:39)
[2021-07-09] MEDS: Polyethylene Glycol 3350 17 GM Packet PO SCH (08:58)
[2021-07-09] MEDS: Pantoprazole 40 MG VIAL IVP SCH (08:58)
[2021-07-09] MEDS: Amlodipine 5 MG TAB PER TUBE SCH (08:58)
[2021-07-09] MEDS: Dexamethasone 4 mg/ml Vial SLOW IVP SCH (08:58)
[2021-07-09] MEDS: Apixaban 5 MG TAB PO SCH ×2 (08:58→21:39)
[2021-07-09] MEDS: Metoprolol Tartrate 25 MG TAB PO SCH ×2 (08:58→21:39)
[2021-07-09] MEDS ORDERED: Lorazepam 2 MG/ML VIAL SLOW IVP PRN (09:36)
[2021-07-09] MEDS: Montelukast Sodium 10 mg Tablet PO SCH (21:39)
[2021-07-10 05:14] LABS: Hemoglobin 11.2 g/dL (12.0-16.0); Mean Corpuscular Hemoglobin 30.1 pg (27.0-31.0); Mean Platelet Volume 9.6 fL (7.4-10.4); Platelet Count 126 thou/uL (130-400); RBC Distribution Width 15.5 % (11.5-14.5); Red Blood Cell (RBC) Count 3.73 mill/uL (4.20-5.40); White Blood Cell (WBC) Count 9.8 thou/uL (4.8-10.8)
[2021-07-10 05:25] LABS: ALT (SGPT) 28 U/L (8-55); AST (SGOT) 11 U/L (5-34); Albumin 2.9 g/dL (3.5-5.0); Alkaline Phosphatase 68 U/L (40-110); Anion Gap 13 mmol/L (10-20); BUN (Urea Nitrogen) 25 mg/dL (9.8-20.1); Bilirubin, Total 1.2 mg/dL (0.2-1.2); Calc. Creatinine Clearance 309 mL/min (70-130); Calcium 8.7 mg/dL (7.8-10.44); Carbon Dioxide 25 mmol/L (22-29); Chloride 113 mmol/L (98-107); Globulin 2.5 g/dL (2.4-3.5); Glucose 115 mg/dL (70-105); Potassium 3.8 mmol/L (3.5-5.1); Protein, Total 5.4 g/dL (6.0-8.3); Sodium 147 mmol/L (136-145)
[2021-07-10] MEDS: Levothyroxine 100 MCG SDV SLOW IVP SCH (07:03)
[2021-07-10 07:24] LABS: Band 13 % (5-11); Lymphocytes 6 % (21-51); MDiff Complete? YES; Metamyelocyte 1 % (0-0); Monocytes 2 % (0-10); Neutrophil 78 % (42-75)
[2021-07-10] MEDS: Amlodipine 5 MG TAB PER TUBE SCH (08:08)
[2021-07-10] MEDS: Apixaban 5 MG TAB PO SCH ×2 (08:08→21:29)
[2021-07-10] MEDS: ALPRAZolam 0.5 MG TAB PO SCH ×2 (08:08→21:29)
[2021-07-10] MEDS: Dexamethasone 4 mg/ml Vial SLOW IVP SCH (08:08)
[2021-07-10] MEDS: Pantoprazole 40 MG VIAL IVP SCH (08:08)
[2021-07-10] MEDS: Metoprolol Tartrate 25 MG TAB PO SCH ×2 (08:08→21:29)
[2021-07-10] MEDS: Polyethylene Glycol 3350 17 GM Packet PO SCH (08:08)
[2021-07-10] MEDS: Mometasone 100 MCG/Formoterol 5 MCG 120 PUFF INHALER INH SCH ×2 (08:44→18:24)
[2021-07-10] MEDS: Morphine 2 MG/ML VIAL SLOW IVP PRN (09:44)
[2021-07-10] MEDS ORDERED: Glycopyrrolate 0.2 MG/ML 5 ML SYRINGE SLOW IVP SCH (17:04)
[2021-07-10] MEDS: Montelukast Sodium 10 mg Tablet PO SCH (21:29)
[2021-07-11 05:16] LABS: #Lymphocytes 0.8 thou/uL (1.20-3.40); #Monocytes 0.5 thou/uL (0.11-0.59); #Neutrophils 8.7 thou/uL (1.40-6.50); %Basophils 0.1 % (0.0-1.0); %Eosinophils 0.1 % (0.0-10.0); %Lymphocytes 7.8 % (21.0-51.0); %Monocytes 5.4 % (0.0-10.0); %Neutrophils 86.7 % (42.0-75.0); Hemoglobin 11.4 g/dL (12.0-16.0); Mean Corpuscular HGB CONC 31.4 g/dL (32.0-36.0); Mean Corpuscular Hemoglobin 29.7 pg (27.0-31.0); Mean Corpuscular Volume 94.6 fL (78.0-98.0); Mean Platelet Volume 9.1 fL (7.4-10.4); Platelet Count 132 thou/uL (130-400); RBC Distribution Width 15.5 % (11.5-14.5); Red Blood Cell (RBC) Count 3.83 mill/uL (4.20-5.40); White Blood Cell (WBC) Count 10.1 thou/uL (4.8-10.8)
[2021-07-11 05:38] LABS: Chloride 113 mmol/L (98-107); Potassium 3.8 mmol/L (3.5-5.1); Sodium 147 mmol/L (136-145)
[2021-07-11 05:39] LABS: Calcium 8.9 mg/dL (7.8-10.44)
[2021-07-11 05:40] LABS: Globulin 2.7 g/dL (2.4-3.5); Glucose 149 mg/dL (70-105); Protein, Total 5.7 g/dL (6.0-8.3)
[2021-07-11 05:41] LABS: Bilirubin, Total 1.2 mg/dL (0.2-1.2); Carbon Dioxide 23 mmol/L (22-29)
[2021-07-11 05:42] LABS: Alkaline Phosphatase 75 U/L (40-110)
[2021-07-11 05:43] LABS: Calc. Creatinine Clearance 296 mL/min (70-130)
[2021-07-11 05:44] LABS: BUN (Urea Nitrogen) 23 mg/dL (9.8-20.1)
[2021-07-11 05:45] LABS: ALT (SGPT) 33 U/L (8-55); AST (SGOT) 13 U/L (5-34); Anion Gap 16 mmol/L (10-20)
[2021-07-11] MEDS: Mometasone 100 MCG/Formoterol 5 MCG 120 PUFF INHALER INH SCH ×2 (07:00→19:20)
[2021-07-11] MEDS: ALPRAZolam 0.5 MG TAB PO SCH ×2 (08:25→21:20)
[2021-07-11] MEDS: Levothyroxine 100 MCG SDV SLOW IVP SCH (08:25)
[2021-07-11] MEDS: Apixaban 5 MG TAB PO SCH (08:26)
[2021-07-11] MEDS: Polyethylene Glycol 3350 17 GM Packet PO SCH (08:26)
[2021-07-11] MEDS: Metoprolol Tartrate 25 MG TAB PO SCH ×2 (08:26→21:20)
[2021-07-11] MEDS: Dexamethasone 4 mg/ml Vial SLOW IVP SCH (08:26)
[2021-07-11] MEDS: Amlodipine 5 MG TAB PER TUBE SCH (08:26)
[2021-07-11] MEDS: Pantoprazole 40 MG VIAL IVP SCH (08:26)
[2021-07-11] MEDS: Morphine 2 MG/ML VIAL SLOW IVP PRN (13:15)
[2021-07-11] MEDS ORDERED: Glycopyrrolate 0.2 MG/ML 5 ML SYRINGE SLOW IVP SCH (15:10)
[2021-07-11] MEDS ORDERED: Morphine 2 MG/ML VIAL SLOW IVP SCH (15:10)
[2021-07-11] MEDS: Montelukast Sodium 10 mg Tablet PO SCH (21:20)
[2021-07-12] MEDS: Mometasone 100 MCG/Formoterol 5 MCG 120 PUFF INHALER INH SCH ×2 (07:02→20:07)
[2021-07-12] MEDS ORDERED: Naloxone HCl 0.4 mg/ml Vial IV SCH (08:00)
[2021-07-12] MEDS: Levothyroxine 100 MCG SDV SLOW IVP SCH (08:12)
[2021-07-12] MEDS: Scopolamine 1.5 mg/72 hour Patch TD SCH (08:19)
[2021-07-12] MEDS: Dexamethasone 4 mg/ml Vial SLOW IVP SCH (08:20)
[2021-07-12] MEDS: Metoprolol Tartrate 25 MG TAB PO SCH ×2 (08:21→20:35)
[2021-07-12] MEDS: Amlodipine 5 MG TAB PER TUBE SCH (08:21)
[2021-07-12] MEDS: Pantoprazole 40 MG VIAL IVP SCH (08:22)
[2021-07-12] MEDS: ALPRAZolam 0.5 MG TAB PO SCH ×2 (08:22→20:35)
[2021-07-12] MEDS: Polyethylene Glycol 3350 17 GM Packet PO SCH (08:22)
[2021-07-12 08:25] LABS: Actual Bicarbonate (HCO3v) 23 mEq/L (22-28); Base Excess 0.4 mEq/L (-2.0 to +3.0); Chloride (VBG) 113 mmol/L (98-106); Hemoglobin (Hb) 12.5 g/dL (11.7-16.0); Potassium (VBG) 3.81 mmol/L (3.70-5.30); Sodium 146.3 mmol/L (133-146)
[2021-07-12] MEDS ORDERED: Furosemide 40 MG/4 ML VIAL SLOW IVP SCH (10:15)
[2021-07-12 10:57] LABS: ALT (SGPT) 40 U/L (8-55); AST (SGOT) 25 U/L (5-34); Alkaline Phosphatase 78 U/L (40-110); Anion Gap 16 mmol/L (10-20); BUN (Urea Nitrogen) 23 mg/dL (9.8-20.1); Calc. Creatinine Clearance 301 mL/min (70-130); Calcium 9.3 mg/dL (7.8-10.44); Carbon Dioxide 22 mmol/L (22-29); Chloride 114 mmol/L (98-107); Globulin 2.9 g/dL (2.4-3.5); Glucose 146 mg/dL (70-105); Potassium 3.8 mmol/L (3.5-5.1); Protein, Total 5.9 g/dL (6.0-8.3); Sodium 148 mmol/L (136-145)
[2021-07-12 12:17] LABS: Red Blood Cell (RBC) Count 3.92 mill/uL (4.20-5.40); White Blood Cell (WBC) Count 11.5 thou/uL (4.8-10.8)
[2021-07-12 12:18] LABS: Band 4 % (5-11); Hemoglobin 11.9 g/dL (12.0-16.0); Lymphocytes 4 % (21-51); MDiff Complete? YES; Manual Diff?? YES; Mean Corpuscular Hemoglobin 30.4 pg (27.0-31.0); Mean Platelet Volume 9.6 fL (7.4-10.4); Monocytes 1 % (0-10); Neutrophil 95 % (42-75); Platelet Count 144 thou/uL (130-400); RBC Distribution Width 15.8 % (11.5-14.5)
[2021-07-12 12:19] LABS: Platelet Morphology Comment Appears Adequate; RBC Morphology Normal
[2021-07-12 18:52] LABS: Anion Gap 17 mmol/L (10-20); BUN (Urea Nitrogen) 32 mg/dL (9.8-20.1); Calc. Creatinine Clearance 250 mL/min (70-130); Calcium 9.3 mg/dL (7.8-10.44); Carbon Dioxide 22 mmol/L (22-29); Chloride 113 mmol/L (98-107); Glucose 247 mg/dL (70-105); Magnesium 1.9 mg/dL (1.6-2.6); Potassium 4.2 mmol/L (3.5-5.1); Sodium 148 mmol/L (136-145)
[2021-07-12] MEDS: Montelukast Sodium 10 mg Tablet PO SCH (20:35)
[2021-07-13 04:49] LABS: ALT (SGPT) 36 U/L (8-55); AST (SGOT) 15 U/L (5-34); Albumin 2.9 g/dL (3.5-5.0); Alkaline Phosphatase 75 U/L (40-110); BUN (Urea Nitrogen) 33 mg/dL (9.8-20.1); Bilirubin, Total 1.1 mg/dL (0.2-1.2); Calc. Creatinine Clearance 260 mL/min (70-130); Calcium 9.2 mg/dL (7.8-10.44); Carbon Dioxide 27 mmol/L (22-29); Chloride 112 mmol/L (98-107); Globulin 2.9 g/dL (2.4-3.5); Glucose 175 mg/dL (70-105); Potassium 4.3 mmol/L (3.5-5.1); Protein, Total 5.8 g/dL (6.0-8.3); Sodium 148 mmol/L (136-145)
[2021-07-13 04:54] LABS: Anion Gap 16 mmol/L (10-20)
[2021-07-13 05:31] LABS: #Lymphocytes 0.8 thou/uL (1.20-3.40); #Monocytes 0.5 thou/uL (0.11-0.59); #Neutrophils 5.8 thou/uL (1.40-6.50); %Basophils 0.1 % (0.0-1.0); %Lymphocytes 10.6 % (21.0-51.0); %Monocytes 7.3 % (0.0-10.0); Hemoglobin 11.7 g/dL (12.0-16.0); Mean Corpuscular HGB CONC 32.7 g/dL (32.0-36.0); Mean Corpuscular Hemoglobin 30.9 pg (27.0-31.0); Mean Corpuscular Volume 94.4 fL (78.0-98.0); Mean Platelet Volume 9.6 fL (7.4-10.4); Platelet Count 117 thou/uL (130-400); Platelet Morphology Comment Appears Decreased; RBC Distribution Width 15.8 % (11.5-14.5); RBC Morphology Normal; White Blood Cell (WBC) Count 7.1 thou/uL (4.8-10.8)
[2021-07-13] MEDS: Metoprolol Tartrate 5 MG/5 ML VIAL IVP PRN ×2 (06:02→08:43)
[2021-07-13] MEDS: Levothyroxine 100 MCG SDV SLOW IVP SCH (06:02)
[2021-07-13] MEDS: Mometasone 100 MCG/Formoterol 5 MCG 120 PUFF INHALER INH SCH ×2 (07:33→18:35)
[2021-07-13] MEDS: Dexamethasone 4 mg/ml Vial SLOW IVP SCH (08:43)
[2021-07-13] MEDS: Pantoprazole 40 MG VIAL IVP SCH (08:43)
[2021-07-13] MEDS ORDERED: Furosemide 40 MG/4 ML VIAL SLOW IVP SCH (10:15)
[2021-07-13] MEDS: ALPRAZolam 0.5 MG TAB PO SCH (10:52)
[2021-07-13] MEDS: Amlodipine 5 MG TAB PER TUBE SCH (10:56)
[2021-07-13] MEDS: Metoprolol Tartrate 25 MG TAB PO SCH ×2 (10:56→20:24)
[2021-07-13] MEDS: Polyethylene Glycol 3350 17 GM Packet PO SCH (11:00)
[2021-07-13] MEDS: Morphine 2 MG/ML VIAL SLOW IVP PRN (12:05)
[2021-07-13] MEDS ORDERED: Propofol 1,000 MG/100 ML VIAL IV ONE (12:32)
[2021-07-13] MEDS ORDERED: Ventilator Sedation Protocol 1 EACH FS SCH (12:36)
[2021-07-13] MEDS ORDERED: Fentanyl BOLUS 250 ML IVPB PRN (12:45)
[2021-07-13] MEDS ORDERED: Propofol BOLUS 1,000 MG/100 ML VIAL IV PRN (12:45)
[2021-07-13] MEDS ORDERED: DISCONTINUE PREVIOUS NARCOTIC PAIN MEDICATIONS AND BENZODIAZEPINES FS SCH (12:45)
[2021-07-13] MEDS ORDERED: Morphine 2 MG/ML VIAL SLOW IVP PRN (12:45)
[2021-07-13] MEDS ORDERED: cefTRIAXone\\ROCEPHIN 2 GM in Sodium Chloride 0.9% 100 ML IVPB SCH (13:00)
[2021-07-13 13:04] LABS: Actual Bicarbonate (HCO3a) 24.4 mEq/L (22-28); Base Excess (BEa) -0.6 mEq/L (-2.0 to +3.0); CO2 Tension 41.2 mmHg (35.0-45.0); Calcium, Ionized (arterial) 1.19 mmol/L (1.12-1.30); Carboxyhemoglobin (COHb) 0.4 gm% (0.0-3.0); Hemoglobin (Hb) 11.8 g/dL (12.0-16.0); O2 Tension (PaO2), arterial 63.8 mmHg (80.0-100.0); Potassium - ABG Lab 4.51 mmol/L (3.70-5.30); pH, Arterial 7.39 (7.35-7.45)
[2021-07-13 13:19] LABS: Puncture Site RRA
[2021-07-13] MEDS ORDERED: Fentanyl CADD 100 ML ONE (13:24)
[2021-07-13] MEDS: Lorazepam 2 MG/ML VIAL SLOW IVP PRN ×3 (13:28→23:03)
[2021-07-13] MEDS: Fentanyl CADD 100 ML IV SCH (13:28)
[2021-07-13] MEDS: Clindamycin/D5W 600 MG in Premix Bag 1 BAG IVPB SCH ×3 (13:34→23:03)
[2021-07-13] MEDS: Rocuronium Bromide 50 MG/5 ML VIAL IVP PRN ×2 (15:00→17:08)
[2021-07-13] MEDS: Propofol 1,000 MG/100 ML VIAL IV PRN ×2 (16:37→20:24)
[2021-07-13 17:48] LABS: Anion Gap 16 mmol/L (10-20); BUN (Urea Nitrogen) 36 mg/dL (9.8-20.1); Calc. Creatinine Clearance 253 mL/min (70-130); Calcium 8.9 mg/dL (7.8-10.44); Carbon Dioxide 23 mmol/L (22-29); Chloride 114 mmol/L (98-107); Glucose 235 mg/dL (70-105); Potassium 4.4 mmol/L (3.5-5.1); Sodium 149 mmol/L (136-145)
[2021-07-13 19:59] LABS: Anion Gap 15 mmol/L (10-20); BUN (Urea Nitrogen) 36 mg/dL (9.8-20.1); Calc. Creatinine Clearance 257 mL/min (70-130); Calcium 8.7 mg/dL (7.8-10.44); Carbon Dioxide 25 mmol/L (22-29); Chloride 111 mmol/L (98-107); Glucose 234 mg/dL (70-105); Potassium 4.4 mmol/L (3.5-5.1); Sodium 147 mmol/L (136-145)
[2021-07-13] MEDS: Montelukast Sodium 10 mg Tablet PO SCH (20:24)
[2021-07-13 23:52] LABS: Anion Gap 13 mmol/L (10-20); BUN (Urea Nitrogen) 36 mg/dL (9.8-20.1); Calc. Creatinine Clearance 274 mL/min (70-130); Calcium 8.8 mg/dL (7.8-10.44); Carbon Dioxide 24 mmol/L (22-29); Chloride 113 mmol/L (98-107); Glucose 197 mg/dL (70-105); Potassium 4.2 mmol/L (3.5-5.1); Sodium 146 mmol/L (136-145)
[2021-07-14] MEDS: Propofol 1,000 MG/100 ML VIAL IV PRN ×8 (01:00→21:33)
[2021-07-14 04:56] LABS: Band 8 % (5-11); Hemoglobin 10.4 g/dL (12.0-16.0); Hypochromia SLIGHT = 6-15 cells (100X) (0-5/hpf); Lymphocytes 5 % (21-51); MDiff Complete? YES; Mean Corpuscular HGB CONC 30.7 g/dL (32.0-36.0); Mean Corpuscular Hemoglobin 29.2 pg (27.0-31.0); Mean Platelet Volume 10.3 fL (7.4-10.4); Monocytes 11 % (0-10); Neutrophil 76 % (42-75); Platelet Count 100 thou/uL (130-400); Platelet Morphology Comment Appears Decreased; RBC Distribution Width 15.6 % (11.5-14.5); Red Blood Cell (RBC) Count 3.55 mill/uL (4.20-5.40); White Blood Cell (WBC) Count 6.9 thou/uL (4.8-10.8)
[2021-07-14 04:59] LABS: ALT (SGPT) 28 U/L (8-55); AST (SGOT) 15 U/L (5-34); Albumin 2.7 g/dL (3.5-5.0); Alkaline Phosphatase 76 U/L (40-110); Anion Gap 15 mmol/L (10-20); BUN (Urea Nitrogen) 35 mg/dL (9.8-20.1); Bilirubin, Total 0.8 mg/dL (0.2-1.2); Calc. Creatinine Clearance 297 mL/min (70-130); Calcium 8.6 mg/dL (7.8-10.44); Carbon Dioxide 24 mmol/L (22-29); Chloride 112 mmol/L (98-107); Globulin 2.9 g/dL (2.4-3.5); Glucose 158 mg/dL (70-105); Potassium 4.5 mmol/L (3.5-5.1); Protein, Total 5.6 g/dL (6.0-8.3); Sodium 146 mmol/L (136-145)
[2021-07-14] MEDS ORDERED: Fentanyl CADD 100 ML ONE ×2 (05:12→23:45)
[2021-07-14] MEDS: Fentanyl CADD 100 ML IV SCH (05:30)
[2021-07-14] MEDS: Clindamycin/D5W 600 MG in Premix Bag 1 BAG IVPB SCH (05:30)
[2021-07-14] MEDS: Levothyroxine 100 MCG SDV SLOW IVP SCH (05:31)
[2021-07-14 07:04] LABS: Actual Bicarbonate (HCO3a) 25.3 mEq/L (22-28); Base Excess (BEa) 0.8 mEq/L (-2.0 to +3.0); CO2 Tension 39.7 mmHg (35.0-45.0); Calcium, Ionized (arterial) 1.21 mmol/L (1.12-1.30); Carboxyhemoglobin (COHb) 0.1 gm% (0.0-3.0); Hemoglobin (Hb) 10.2 g/dL (12.0-16.0); O2 Tension (PaO2), arterial 81.2 mmHg (80.0-100.0); Potassium - ABG Lab 3.86 mmol/L (3.70-5.30); pH, Arterial 7.42 (7.35-7.45)
[2021-07-14 07:11] LABS: Puncture Site RRA
[2021-07-14 07:12] LABS: ALV-art Gradient 154.375 mmHg (0-20)
[2021-07-14] MEDS: Mometasone 100 MCG/Formoterol 5 MCG 120 PUFF INHALER INH SCH ×2 (08:31→18:44)
[2021-07-14] MEDS: Dexamethasone 4 mg/ml Vial SLOW IVP SCH (09:10)
[2021-07-14] MEDS: Pantoprazole 40 MG VIAL IVP SCH (09:11)
[2021-07-14 09:18] LABS: Anion Gap 17 mmol/L (10-20); BUN (Urea Nitrogen) 37 mg/dL (9.8-20.1); Calc. Creatinine Clearance 311 mL/min (70-130); Calcium 8.5 mg/dL (7.8-10.44); Carbon Dioxide 23 mmol/L (22-29); Chloride 112 mmol/L (98-107); Glucose 167 mg/dL (70-105); Potassium 4.3 mmol/L (3.5-5.1); Sodium 148 mmol/L (136-145)
[2021-07-14] MEDS ORDERED: Piperacillin/Tazobactam 3.375 GM in Sodium Chloride 0.9% 100 ML IVPB SCH (09:30)
[2021-07-14] MEDS: Amlodipine 5 MG TAB PER TUBE SCH (09:36)
[2021-07-14] MEDS: Metoprolol Tartrate 25 MG TAB PO SCH ×2 (09:36→20:39)
[2021-07-14] MEDS: Polyethylene Glycol 3350 17 GM Packet PO SCH (09:36)
[2021-07-14] MEDS: Lorazepam 2 MG/ML VIAL SLOW IVP PRN ×3 (09:40→23:06)
[2021-07-14] MEDS ORDERED: Furosemide 40 MG/4 ML VIAL SLOW IVP SCH (10:45)
[2021-07-14 13:10] LABS: Anion Gap 13 mmol/L (10-20); BUN (Urea Nitrogen) 35 mg/dL (9.8-20.1); Calc. Creatinine Clearance 306 mL/min (70-130); Calcium 8.7 mg/dL (7.8-10.44); Carbon Dioxide 27 mmol/L (22-29); Chloride 111 mmol/L (98-107); Glucose 178 mg/dL (70-105); Potassium 3.9 mmol/L (3.5-5.1); Sodium 147 mmol/L (136-145)
[2021-07-14] MEDS: Piperacillin/Tazobactam 3.375 GM in Sodium Chloride 0.9% 100 ML IVPB SCH ×2 (14:20→21:27)
[2021-07-14] MEDS: Furosemide 40 MG/4 ML VIAL SLOW IVP SCH (20:40)
[2021-07-14] MEDS: Montelukast Sodium 10 mg Tablet PO SCH (20:40)
[2021-07-15] MEDS: Propofol 1,000 MG/100 ML VIAL IV PRN ×8 (03:16→23:52)
[2021-07-15 04:22] LABS: #Lymphocytes 0.7 thou/uL (1.20-3.40); #Monocytes 0.3 thou/uL (0.11-0.59); #Neutrophils 5.3 thou/uL (1.40-6.50); %Basophils 0.1 % (0.0-1.0); %Eosinophils 0.1 % (0.0-10.0); %Neutrophils 84.8 % (42.0-75.0); ALT (SGPT) 25 U/L (8-55); AST (SGOT) 11 U/L (5-34); Albumin 2.6 g/dL (3.5-5.0); Alkaline Phosphatase 72 U/L (40-110); Anion Gap 17 mmol/L (10-20); BUN (Urea Nitrogen) 36 mg/dL (9.8-20.1); Bilirubin, Total 0.7 mg/dL (0.2-1.2); Calc. Creatinine Clearance 289 mL/min (70-130); Calcium 8.8 mg/dL (7.8-10.44); Carbon Dioxide 25 mmol/L (22-29); Chloride 108 mmol/L (98-107); Glucose 175 mg/dL (70-105); Hemoglobin 10.1 g/dL (12.0-16.0); Magnesium 1.9 mg/dL (1.6-2.6); Mean Corpuscular HGB CONC 31.9 g/dL (32.0-36.0); Mean Corpuscular Hemoglobin 30.2 pg (27.0-31.0); Mean Corpuscular Volume 94.8 fL (78.0-98.0); Mean Platelet Volume 10.3 fL (7.4-10.4); Phosphorus 2.8 mg/dL (2.3-4.7); Platelet Count 99 thou/uL (130-400); Potassium 3.6 mmol/L (3.5-5.1); Protein, Total 5.6 g/dL (6.0-8.3); RBC Distribution Width 15.5 % (11.5-14.5); Red Blood Cell (RBC) Count 3.34 mill/uL (4.20-5.40); Sodium 146 mmol/L (136-145); White Blood Cell (WBC) Count 6.2 thou/uL (4.8-10.8)
[2021-07-15] MEDS: Levothyroxine 100 MCG SDV SLOW IVP SCH (05:22)
[2021-07-15] MEDS: Piperacillin/Tazobactam 3.375 GM in Sodium Chloride 0.9% 100 ML IVPB SCH ×3 (05:22→21:29)
[2021-07-15] MEDS: Mometasone 100 MCG/Formoterol 5 MCG 120 PUFF INHALER INH SCH ×2 (07:19→18:24)
[2021-07-15 07:30] LABS: Actual Bicarbonate (HCO3a) 27.9 mEq/L (22-28); Base Excess (BEa) 3.4 mEq/L (-2.0 to +3.0); CO2 Tension 41.9 mmHg (35.0-45.0); Calcium, Ionized (arterial) 1.21 mmol/L (1.12-1.30); Carboxyhemoglobin (COHb) 0.2 gm% (0.0-3.0); Hemoglobin (Hb) 11.2 g/dL (12.0-16.0); O2 Tension (PaO2), arterial 88.2 mmHg (80.0-100.0); Potassium - ABG Lab 3.21 mmol/L (3.70-5.30); pH, Arterial 7.44 (7.35-7.45)
[2021-07-15 07:33] LABS: ALV-art Gradient 144.625 mmHg (0-20); Puncture Site RRA
[2021-07-15] MEDS: Polyethylene Glycol 3350 17 GM Packet PO SCH (08:35)
[2021-07-15] MEDS: Dexamethasone 4 mg/ml Vial SLOW IVP SCH (08:35)
[2021-07-15] MEDS: Metoprolol Tartrate 25 MG TAB PO SCH ×2 (08:35→21:28)
[2021-07-15] MEDS: Amlodipine 5 MG TAB PER TUBE SCH (08:35)
[2021-07-15] MEDS: Furosemide 40 MG/4 ML VIAL SLOW IVP SCH ×2 (08:35→21:28)
[2021-07-15] MEDS: Lorazepam 2 MG/ML VIAL SLOW IVP PRN ×3 (08:35→16:27)
[2021-07-15] MEDS: Pantoprazole 40 MG VIAL IVP SCH (08:36)
[2021-07-15] MEDS: Scopolamine 1.5 mg/72 hour Patch TD SCH (08:36)
[2021-07-15] MEDS ORDERED: Fentanyl CADD 100 ML ONE (14:21)
[2021-07-15] MEDS: Fentanyl CADD 100 ML IV SCH (14:28)
[2021-07-15] MEDS: Montelukast Sodium 10 mg Tablet PO SCH (21:28)
[2021-07-16] MEDS: Propofol 1,000 MG/100 ML VIAL IV PRN ×9 (02:43→22:57)
[2021-07-16] MEDS: Piperacillin/Tazobactam 3.375 GM in Sodium Chloride 0.9% 100 ML IVPB SCH ×3 (05:07→21:25)
[2021-07-16] MEDS: Levothyroxine 100 MCG SDV SLOW IVP SCH (05:08)
[2021-07-16 05:21] LABS: Band 18 % (5-11); Hemoglobin 9.8 g/dL (12.0-16.0); Hypochromia SLIGHT = 6-15 cells (100X) (0-5/hpf); Lymphocytes 6 % (21-51); MDiff Complete? YES; Mean Corpuscular HGB CONC 31.4 g/dL (32.0-36.0); Mean Corpuscular Hemoglobin 29.7 pg (27.0-31.0); Mean Corpuscular Volume 94.7 fL (78.0-98.0); Mean Platelet Volume 10.7 fL (7.4-10.4); Monocytes 2 % (0-10); Neutrophil 74 % (42-75); Platelet Count 80 thou/uL (130-400); Platelet Morphology Comment Appears Decreased; RBC Distribution Width 15.5 % (11.5-14.5)
[2021-07-16 05:32] LABS: ALT (SGPT) 24 U/L (8-55); AST (SGOT) 22 U/L (5-34); Albumin 2.5 g/dL (3.5-5.0); Alkaline Phosphatase 70 U/L (40-110); Anion Gap 16 mmol/L (10-20); BUN (Urea Nitrogen) 39 mg/dL (9.8-20.1); Bilirubin, Total 0.6 mg/dL (0.2-1.2); Calc. Creatinine Clearance 274 mL/min (70-130); Calcium 8.1 mg/dL (7.8-10.44); Carbon Dioxide 26 mmol/L (22-29); Chloride 107 mmol/L (98-107); Globulin 3.3 g/dL (2.4-3.5); Glucose 147 mg/dL (70-105); Phosphorus 3.3 mg/dL (2.3-4.7); Potassium 4.4 mmol/L (3.5-5.1); Protein, Total 5.8 g/dL (6.0-8.3); Sodium 145 mmol/L (136-145)
[2021-07-16] MEDS ORDERED: Fentanyl CADD 100 ML ONE ×2 (06:19→17:45)
[2021-07-16] MEDS: Mometasone 100 MCG/Formoterol 5 MCG 120 PUFF INHALER INH SCH ×2 (07:13→17:59)
[2021-07-16] MEDS: Lorazepam 2 MG/ML VIAL SLOW IVP PRN ×2 (07:52→12:17)
[2021-07-16] MEDS: Furosemide 40 MG/4 ML VIAL SLOW IVP SCH ×2 (08:00→20:34)
[2021-07-16] MEDS: Dexamethasone 4 mg/ml Vial SLOW IVP SCH (08:00)
[2021-07-16] MEDS: Amlodipine 5 MG TAB PER TUBE SCH (08:01)
[2021-07-16] MEDS: Metoprolol Tartrate 25 MG TAB PO SCH ×2 (08:01→20:34)
[2021-07-16] MEDS: Pantoprazole 40 MG VIAL IVP SCH (08:01)
[2021-07-16] MEDS: Polyethylene Glycol 3350 17 GM Packet PO SCH (08:01)
[2021-07-16] MEDS: Fentanyl CADD 100 ML IV SCH (17:53)
[2021-07-16] MEDS: Montelukast Sodium 10 mg Tablet PO SCH (20:34)
[2021-07-17] MEDS: Lorazepam 2 MG/ML VIAL SLOW IVP PRN ×2 (00:49→08:23)
[2021-07-17] MEDS: Propofol 1,000 MG/100 ML VIAL IV PRN ×6 (01:35→21:16)
[2021-07-17 04:50] LABS: INR-International Normal Ratio 1.2; PTT 30.2 sec (22.9-36.1); Prothrombin Time 14.9 sec (12.0-14.7)
[2021-07-17 04:57] LABS: ALT (SGPT) 23 U/L (8-55); AST (SGOT) 12 U/L (5-34); Albumin 2.7 g/dL (3.5-5.0); Alkaline Phosphatase 78 U/L (40-110); Anion Gap 13 mmol/L (10-20); BUN (Urea Nitrogen) 39 mg/dL (9.8-20.1); Bilirubin, Total 0.7 mg/dL (0.2-1.2); Calc. Creatinine Clearance 286 mL/min (70-130); Calcium 8.5 mg/dL (7.8-10.44); Carbon Dioxide 31 mmol/L (22-29); Chloride 104 mmol/L (98-107); Glucose 142 mg/dL (70-105); Magnesium 1.9 mg/dL (1.6-2.6); Phosphorus 2.7 mg/dL (2.3-4.7); Potassium 3.1 mmol/L (3.5-5.1); Protein, Total 5.7 g/dL (6.0-8.3); Sodium 145 mmol/L (136-145)
[2021-07-17 05:00] LABS: Band 6 % (5-11); Hemoglobin 10.1 g/dL (12.0-16.0); Hypochromia SLIGHT = 6-15 cells (100X) (0-5/hpf); Lymphocytes 28 % (21-51); MDiff Complete? YES; Mean Corpuscular HGB CONC 31.2 g/dL (32.0-36.0); Mean Corpuscular Hemoglobin 29.6 pg (27.0-31.0); Mean Corpuscular Volume 94.9 fL (78.0-98.0); Mean Platelet Volume 10.5 fL (7.4-10.4); Monocytes 10 % (0-10); Neutrophil 56 % (42-75); Nucleated RBC 2 % (0); Platelet Count 121 thou/uL (130-400); Platelet Morphology Comment Appears Decreased; RBC Distribution Width 15.5 % (11.5-14.5); White Blood Cell (WBC) Count 6.2 thou/uL (4.8-10.8)
[2021-07-17] MEDS: Levothyroxine 100 MCG SDV SLOW IVP SCH (05:06)
[2021-07-17] MEDS: Piperacillin/Tazobactam 3.375 GM in Sodium Chloride 0.9% 100 ML IVPB SCH ×3 (05:06→21:15)
[2021-07-17] MEDS: Mometasone 100 MCG/Formoterol 5 MCG 120 PUFF INHALER INH SCH ×2 (06:46→18:32)
[2021-07-17] MEDS: Pantoprazole 40 MG VIAL IVP SCH (08:24)
[2021-07-17] MEDS: Furosemide 40 MG/4 ML VIAL SLOW IVP SCH (08:24)
[2021-07-17] MEDS: Dexamethasone 4 mg/ml Vial SLOW IVP SCH (08:24)
[2021-07-17] MEDS: Polyethylene Glycol 3350 17 GM Packet PO SCH (08:25)
[2021-07-17] MEDS: Amlodipine 5 MG TAB PER TUBE SCH (08:27)
[2021-07-17] MEDS: Metoprolol Tartrate 25 MG TAB PO SCH ×2 (08:27→21:16)
[2021-07-17] MEDS ORDERED: Potassium Chloride 40 MEQ in Premix Bag 1 BAG IVPB SCH (08:30)
[2021-07-17] MEDS: Fentanyl CADD 100 ML IV SCH (10:06)
[2021-07-17] MEDS ORDERED: Midazolam HCl 2 mg/2 ml Vial ONE ×2 (12:25→13:59)
[2021-07-17] MEDS ORDERED: Fentanyl 100 MCG/2 ML VIAL ONE ×2 (12:25→13:59)
[2021-07-17] MEDS ORDERED: Lidocaine 1% w/Epinephrine 1:100K 20 ML VIAL ONE ×2 (12:27→17:27)
[2021-07-17] MEDS ORDERED: Bupivacaine 0.25% HCL 30 ML VIAL ONE (12:27)
[2021-07-17] MEDS ORDERED: Ondansetron PF 4 MG/2 ML Vial ONE (13:09)
[2021-07-17] MEDS ORDERED: Dexamethasone 20 MG/5 ML VIAL ONE (13:09)
[2021-07-17] MEDS ORDERED: Rocuronium Bromide 10 MG/ML (10ML VIAL) ONE (13:09)
[2021-07-17] MEDS ORDERED: PROPOFOL 200 MG/20 ML VIAL ONE (13:09)
[2021-07-17] MEDS ORDERED: Rocuronium Bromide 50 MG/5 ML VIAL ONE (14:19)
[2021-07-17] MEDS: Montelukast Sodium 10 mg Tablet PO SCH (21:16)
[2021-07-18] MEDS: Propofol 1,000 MG/100 ML VIAL IV PRN ×7 (00:33→22:09)
[2021-07-18] MEDS ORDERED: Fentanyl CADD 100 ML ONE ×2 (03:52→19:12)
[2021-07-18 04:27] LABS: ALT (SGPT) 28 U/L (8-55); AST (SGOT) 18 U/L (5-34); Albumin 2.6 g/dL (3.5-5.0); Alkaline Phosphatase 77 U/L (40-110); Anion Gap 15 mmol/L (10-20); BUN (Urea Nitrogen) 38 mg/dL (9.8-20.1); Bilirubin, Total 0.7 mg/dL (0.2-1.2); Calc. Creatinine Clearance 301 mL/min (70-130); Calcium 8.3 mg/dL (7.8-10.44); Carbon Dioxide 28 mmol/L (22-29); Chloride 106 mmol/L (98-107); Glucose 150 mg/dL (70-105); Magnesium 1.9 mg/dL (1.6-2.6); Protein, Total 5.6 g/dL (6.0-8.3); Sodium 146 mmol/L (136-145)
[2021-07-18 04:55] LABS: Band 7 % (5-11); Hemoglobin 10.2 g/dL (12.0-16.0); Lymphocytes 12 % (21-51); MDiff Complete? YES; Mean Corpuscular HGB CONC 31.6 g/dL (32.0-36.0); Mean Corpuscular Hemoglobin 29.9 pg (27.0-31.0); Mean Corpuscular Volume 94.6 fL (78.0-98.0); Mean Platelet Volume 10.2 fL (7.4-10.4); Monocytes 3 % (0-10); Neutrophil 78 % (42-75); Platelet Count 125 thou/uL (130-400); RBC Distribution Width 15.6 % (11.5-14.5); Red Blood Cell (RBC) Count 3.42 mill/uL (4.20-5.40); White Blood Cell (WBC) Count 5.9 thou/uL (4.8-10.8)
[2021-07-18 04:59] LABS: Phosphorus 3.3 mg/dL (2.3-4.7)
[2021-07-18] MEDS: Piperacillin/Tazobactam 3.375 GM in Sodium Chloride 0.9% 100 ML IVPB SCH ×3 (05:27→21:57)
[2021-07-18] MEDS: Levothyroxine 100 MCG SDV SLOW IVP SCH (05:28)
[2021-07-18] MEDS: Mometasone 100 MCG/Formoterol 5 MCG 120 PUFF INHALER INH SCH ×2 (06:59→18:32)
[2021-07-18 07:15] LABS: Actual Bicarbonate (HCO3a) 30.3 mEq/L (22-28); Base Excess (BEa) 4.8 mEq/L (-2.0 to +3.0); Calcium, Ionized (arterial) 1.14 mmol/L (1.12-1.30); Carboxyhemoglobin (COHb) 0.2 gm% (0.0-3.0); Hemoglobin (Hb) 11.1 g/dL (12.0-16.0); O2 Tension (PaO2), arterial 91.5 mmHg (80.0-100.0); Potassium - ABG Lab 2.67 mmol/L (3.70-5.30); pH, Arterial 7.41 (7.35-7.45)
[2021-07-18 07:18] LABS: Puncture Site RRA
[2021-07-18] MEDS: Potassium Chloride 20 MEQ in Premix Bag 1 BAG IVPB SCH (14:23)
[2021-07-18] MEDS: VANCOMYCIN 2 GRAM/400 ML BAG 2 GM in Premix Bag 1 BAG IVPB SCH ×2 (16:39→19:47)
[2021-07-18] MEDS: Amlodipine 5 MG TAB PER TUBE SCH (16:39)
[2021-07-18] MEDS: Pantoprazole 40 MG VIAL IVP SCH (16:40)
[2021-07-18] MEDS: Dexamethasone 4 mg/ml Vial SLOW IVP SCH (16:40)
[2021-07-18] MEDS: Metoprolol Tartrate 25 MG TAB PO SCH ×2 (16:40→19:49)
[2021-07-18] MEDS: Scopolamine 1.5 mg/72 hour Patch TD SCH (16:41)
[2021-07-18] MEDS: Polyethylene Glycol 3350 17 GM Packet PO SCH (16:41)
[2021-07-18] MEDS: Montelukast Sodium 10 mg Tablet PO SCH (19:49)
[2021-07-18] MEDS: Apixaban 5 MG TAB PO SCH (19:49)
[2021-07-18] MEDS: Fentanyl CADD 100 ML IV SCH (20:00)
[2021-07-19] MEDS: Propofol 1,000 MG/100 ML VIAL IV PRN ×8 (01:49→23:59)
[2021-07-19] MEDS: Piperacillin/Tazobactam 3.375 GM in Sodium Chloride 0.9% 100 ML IVPB SCH ×3 (06:07→21:08)
[2021-07-19] MEDS: Levothyroxine 100 MCG SDV SLOW IVP SCH (06:07)
[2021-07-19] MEDS: Mometasone 100 MCG/Formoterol 5 MCG 120 PUFF INHALER INH SCH ×2 (06:42→18:45)
[2021-07-19 07:03] LABS: Actual Bicarbonate (HCO3a) 28.5 mEq/L (22-28); Base Excess (BEa) 3.5 mEq/L (-2.0 to +3.0); CO2 Tension 45.5 mmHg (35.0-45.0); Calcium, Ionized (arterial) 1.15 mmol/L (1.12-1.30); Carboxyhemoglobin (COHb) 0.2 gm% (0.0-3.0); Hemoglobin (Hb) 10.5 g/dL (12.0-16.0); O2 Tension (PaO2), arterial 103.1 mmHg (80.0-100.0); Potassium - ABG Lab 2.66 mmol/L (3.70-5.30); pH, Arterial 7.42 (7.35-7.45)
[2021-07-19 07:21] LABS: Band 21 % (5-11); Lymphocytes 22 % (21-51); MDiff Complete? YES; Mean Corpuscular HGB CONC 31.5 g/dL (32.0-36.0); Mean Corpuscular Hemoglobin 30.2 pg (27.0-31.0); Mean Corpuscular Volume 95.8 fL (78.0-98.0); Metamyelocyte 2 % (0-0); Monocytes 3 % (0-10); Neutrophil 52 % (42-75); Platelet Count 133 thou/uL (130-400); RBC Distribution Width 15.7 % (11.5-14.5); Red Blood Cell (RBC) Count 3.32 mill/uL (4.20-5.40)
[2021-07-19 08:16] LABS: ALV-art Gradient 125.225 mmHg (0-20); Puncture Site RRA
[2021-07-19] MEDS: VANCOMYCIN 2 GRAM/400 ML BAG 2 GM in Premix Bag 1 BAG IVPB SCH ×2 (09:50→21:09)
[2021-07-19] MEDS: Metoprolol Tartrate 25 MG TAB PO SCH ×2 (09:51→21:08)
[2021-07-19] MEDS: Apixaban 5 MG TAB PO SCH ×2 (09:51→21:07)
[2021-07-19] MEDS: Amlodipine 5 MG TAB PER TUBE SCH (09:51)
[2021-07-19] MEDS: Dexamethasone 4 mg/ml Vial SLOW IVP SCH (09:51)
[2021-07-19] MEDS: Sulfameth/Trimethoprim DS 800-160mg TAB PO SCH (09:52)
[2021-07-19] MEDS: Pantoprazole 40 MG VIAL IVP SCH (09:52)
[2021-07-19] MEDS: Polyethylene Glycol 3350 17 GM Packet PO SCH (09:54)
[2021-07-19 10:02] LABS: Albumin 2.4 g/dL (3.5-5.0)
[2021-07-19 10:03] LABS: Chloride 107 mmol/L (98-107); Sodium 147 mmol/L (136-145)
[2021-07-19 10:04] LABS: Calcium 8.4 mg/dL (7.8-10.44)
[2021-07-19 10:05] LABS: Globulin 2.8 g/dL (2.4-3.5); Glucose 156 mg/dL (70-105); Protein, Total 5.2 g/dL (6.0-8.3)
[2021-07-19 10:06] LABS: Anion Gap 14 mmol/L (10-20); Carbon Dioxide 29 mmol/L (22-29)
[2021-07-19 10:07] LABS: Bilirubin, Total 0.6 mg/dL (0.2-1.2)
[2021-07-19 10:08] LABS: Alkaline Phosphatase 69 U/L (40-110); Calc. Creatinine Clearance 339 mL/min (70-130)
[2021-07-19 10:09] LABS: BUN (Urea Nitrogen) 32 mg/dL (9.8-20.1)
[2021-07-19 10:10] LABS: AST (SGOT) 20 U/L (5-34)
[2021-07-19 10:11] LABS: ALT (SGPT) 30 U/L (8-55)
[2021-07-19 11:10] LABS: Phosphorus 2.1 mg/dL (2.3-4.7); Potassium 2.6 mmol/L (3.5-5.1)
[2021-07-19] MEDS ORDERED: Electrolyte Replacement Protocol 1 EACH FS SCH (11:15)
[2021-07-19] MEDS ORDERED: Fentanyl CADD 100 ML ONE (11:54)
[2021-07-19] MEDS: Fentanyl CADD 100 ML IV SCH (12:07)
[2021-07-19] MEDS: Potassium Chloride 40 MEQ in Sodium Chloride 0.9% 250 ML 250 ML IVPB SCH ×2 (12:27→23:03)
[2021-07-19 19:32] LABS: Vancomycin, Trough 22.2 ug/mL
[2021-07-19] MEDS: Montelukast Sodium 10 mg Tablet PO SCH (21:08)
[2021-07-19 22:31] LABS: Potassium 2.9 mmol/L (3.5-5.1)
[2021-07-20] MEDS ORDERED: Fentanyl CADD 100 ML ONE ×2 (04:12→20:27)
[2021-07-20] MEDS: Fentanyl CADD 100 ML IV SCH ×2 (04:21→20:32)
[2021-07-20] MEDS ORDERED: Potassium Chloride 40 MEQ in Premix Bag 1 BAG IVPB SCH (04:45)
[2021-07-20] MEDS ORDERED: Sterile Water 10 ML ONE (05:42)
[2021-07-20] MEDS: Levothyroxine 100 MCG SDV SLOW IVP SCH (05:51)
[2021-07-20] MEDS: Propofol 1,000 MG/100 ML VIAL IV PRN ×6 (05:51→22:51)
[2021-07-20] MEDS: Piperacillin/Tazobactam 3.375 GM in Sodium Chloride 0.9% 100 ML IVPB SCH ×3 (05:52→21:14)
[2021-07-20] MEDS: Potassium Chloride 40 MEQ in Sodium Chloride 0.9% 250 ML 250 ML IVPB SCH ×2 (05:58→19:49)
[2021-07-20] MEDS: Mometasone 100 MCG/Formoterol 5 MCG 120 PUFF INHALER INH SCH ×2 (07:03→18:31)
[2021-07-20 07:54] LABS: Actual Bicarbonate (HCO3a) 26.6 mEq/L (22-28); Base Excess (BEa) 1.6 mEq/L (-2.0 to +3.0); CO2 Tension 43.5 mmHg (35.0-45.0); Calcium, Ionized (arterial) 1.12 mmol/L (1.12-1.30); Carboxyhemoglobin (COHb) 0.3 gm% (0.0-3.0); Hemoglobin (Hb) 10.4 g/dL (12.0-16.0); O2 Tension (PaO2), arterial 97.9 mmHg (80.0-100.0); Potassium - ABG Lab 3.03 mmol/L (3.70-5.30)
[2021-07-20 08:28] LABS: ALV-art Gradient 132.925 mmHg (0-20); Puncture Site LRA
[2021-07-20] MEDS: Dexamethasone 4 mg/ml Vial SLOW IVP SCH (08:54)
[2021-07-20] MEDS: Pantoprazole 40 MG VIAL IVP SCH (08:55)
[2021-07-20] MEDS: Metoprolol Tartrate 25 MG TAB PO SCH ×2 (08:56→21:14)
[2021-07-20] MEDS: Amlodipine 5 MG TAB PER TUBE SCH (08:56)
[2021-07-20] MEDS: Polyethylene Glycol 3350 17 GM Packet PO SCH (08:56)
[2021-07-20] MEDS: Apixaban 5 MG TAB PO SCH ×2 (09:00→21:14)
[2021-07-20] MEDS: Vancomycin 1.5 GRAM/300 ML BAG 1.5 GM in Premix Bag 1 BAG IVPB SCH ×4 (09:01→21:37)
[2021-07-20 10:04] LABS: #Eosinphils 0.1 thou/uL (0.0-0.7); #Monocytes 0.2 thou/uL (0.11-0.59); #Neutrophils 5.4 thou/uL (1.40-6.50); %Basophils 0.3 % (0.0-1.0); %Eosinophils 1.3 % (0.0-10.0); %Neutrophils 80.4 % (42.0-75.0); Mean Corpuscular HGB CONC 31.5 g/dL (32.0-36.0); Mean Corpuscular Hemoglobin 30.4 pg (27.0-31.0); Mean Corpuscular Volume 96.5 fL (78.0-98.0); Mean Platelet Volume 9.8 fL (7.4-10.4); Platelet Count 139 thou/uL (130-400); Red Blood Cell (RBC) Count 3.28 mill/uL (4.20-5.40); White Blood Cell (WBC) Count 6.7 thou/uL (4.8-10.8)
[2021-07-20 10:29] LABS: ALT (SGPT) 28 U/L (8-55); AST (SGOT) 19 U/L (5-34); Albumin 2.4 g/dL (3.5-5.0); Alkaline Phosphatase 72 U/L (40-110); Anion Gap 14 mmol/L (10-20); BUN (Urea Nitrogen) 22 mg/dL (9.8-20.1); Bilirubin, Total 0.5 mg/dL (0.2-1.2); Calc. Creatinine Clearance 366 mL/min (70-130); Calcium 8.1 mg/dL (7.8-10.44); Carbon Dioxide 25 mmol/L (22-29); Chloride 109 mmol/L (98-107); Globulin 2.8 g/dL (2.4-3.5); Glucose 149 mg/dL (70-105); Phosphorus 1.4 mg/dL (2.3-4.7); Potassium 3.5 mmol/L (3.5-5.1); Protein, Total 5.2 g/dL (6.0-8.3); Sodium 144 mmol/L (136-145)
[2021-07-20] MEDS ORDERED: Potassium Phosphate 15 MMOL in Sodium Chloride 0.9% 250 ML 250 ML IVPB SCH (10:45)
[2021-07-20 19:10] LABS: Potassium 3.9 mmol/L (3.5-5.1)
[2021-07-20] MEDS: Montelukast Sodium 10 mg Tablet PO SCH (21:14)
[2021-07-21] MEDS: Propofol 1,000 MG/100 ML VIAL IV PRN ×5 (01:52→20:45)
[2021-07-21 04:37] LABS: Hemoglobin 9.4 g/dL (12.0-16.0); Mean Corpuscular Hemoglobin 29.6 pg (27.0-31.0); Mean Corpuscular Volume 95.6 fL (78.0-98.0); Mean Platelet Volume 9.8 fL (7.4-10.4); Platelet Count 147 thou/uL (130-400); RBC Distribution Width 15.8 % (11.5-14.5); Red Blood Cell (RBC) Count 3.16 mill/uL (4.20-5.40); White Blood Cell (WBC) Count 7.6 thou/uL (4.8-10.8)
[2021-07-21 04:45] LABS: ALT (SGPT) 28 U/L (8-55); AST (SGOT) 17 U/L (5-34); Albumin 2.4 g/dL (3.5-5.0); Alkaline Phosphatase 73 U/L (40-110); Anion Gap 14 mmol/L (10-20); BUN (Urea Nitrogen) 20 mg/dL (9.8-20.1); Bilirubin, Total 0.4 mg/dL (0.2-1.2); Calc. Creatinine Clearance 373 mL/min (70-130); Calcium 8.1 mg/dL (7.8-10.44); Carbon Dioxide 24 mmol/L (22-29); Chloride 109 mmol/L (98-107); Globulin 2.8 g/dL (2.4-3.5); Glucose 127 mg/dL (70-105); Magnesium 2.1 mg/dL (1.6-2.6); Phosphorus 1.9 mg/dL (2.3-4.7); Potassium 3.4 mmol/L (3.5-5.1); Protein, Total 5.2 g/dL (6.0-8.3); Sodium 144 mmol/L (136-145)
[2021-07-21 05:15] LABS: Band 16 % (5-11); Lymphocytes 10 % (21-51); MDiff Complete? YES; Monocytes 3 % (0-10); Myelocyte 1 % (0-0); Neutrophil 70 % (42-75); Polychromasia SLIGHT = 2-3 cells (100X) (0-2/hpf)
[2021-07-21] MEDS: Piperacillin/Tazobactam 3.375 GM in Sodium Chloride 0.9% 100 ML IVPB SCH ×3 (05:24→21:04)
[2021-07-21] MEDS: Levothyroxine 100 MCG SDV SLOW IVP SCH (05:25)
[2021-07-21] MEDS ORDERED: Potassium Phosphate 15 MMOL in Sodium Chloride 0.9% 250 ML 250 ML IVPB SCH (05:30)
[2021-07-21] MEDS: Mometasone 100 MCG/Formoterol 5 MCG 120 PUFF INHALER INH SCH ×2 (07:54→18:23)
[2021-07-21 08:00] LABS: Base Excess (BEa) 0.2 mEq/L (-2.0 to +3.0); CO2 Tension 41.4 mmHg (35.0-45.0); Calcium, Ionized (arterial) 1.18 mmol/L (1.12-1.30); Carboxyhemoglobin (COHb) 0.1 gm% (0.0-3.0); Hemoglobin (Hb) 11.3 g/dL (12.0-16.0); Potassium - ABG Lab 3.23 mmol/L (3.70-5.30)
[2021-07-21 08:02] LABS: O2 Tension (PaO2), arterial 56.1 mmHg (80.0-100.0); Puncture Site RRA
[2021-07-21] MEDS: Pantoprazole 40 MG VIAL IVP SCH (08:44)
[2021-07-21] MEDS: Polyethylene Glycol 3350 17 GM Packet PO SCH (08:44)
[2021-07-21] MEDS: Scopolamine 1.5 mg/72 hour Patch TD SCH (08:45)
[2021-07-21] MEDS: Dexamethasone 4 mg/ml Vial SLOW IVP SCH (08:46)
[2021-07-21] MEDS: Amlodipine 5 MG TAB PER TUBE SCH (08:47)
[2021-07-21] MEDS: Metoprolol Tartrate 25 MG TAB PO SCH ×2 (08:47→20:42)
[2021-07-21] MEDS: Apixaban 5 MG TAB PO SCH ×2 (08:54→20:45)
[2021-07-21] MEDS ORDERED: ALPRAZolam 0.5 MG TAB PO SCH (09:45)
[2021-07-21] MEDS: Vancomycin 1.5 GRAM/300 ML BAG 1.5 GM in Premix Bag 1 BAG IVPB SCH ×2 (10:34→20:41)
[2021-07-21] MEDS ORDERED: Fentanyl CADD 100 ML ONE (12:59)
[2021-07-21] MEDS: Fentanyl CADD 100 ML IV SCH (13:07)
[2021-07-21] MEDS: ALPRAZolam 0.5 MG TAB PO SCH (20:42)
[2021-07-21] MEDS: Montelukast Sodium 10 mg Tablet PO SCH (20:42)
[2021-07-21 21:37] LABS: Vancomycin, Trough 23.3 ug/mL
[2021-07-22] MEDS: Propofol 1,000 MG/100 ML VIAL IV PRN (00:49)
[2021-07-22 04:46] LABS: #Monocytes 0.5 thou/uL (0.11-0.59); #Neutrophils 7.6 thou/uL (1.40-6.50); %Basophils 0.1 % (0.0-1.0); %Eosinophils 0.3 % (0.0-10.0); %Lymphocytes 10.6 % (21.0-51.0); %Monocytes 5.4 % (0.0-10.0); %Neutrophils 83.6 % (42.0-75.0); Hemoglobin 9.2 g/dL (12.0-16.0); Mean Corpuscular HGB CONC 30.3 g/dL (32.0-36.0); Mean Corpuscular Hemoglobin 28.9 pg (27.0-31.0); Mean Corpuscular Volume 95.4 fL (78.0-98.0); Mean Platelet Volume 9.5 fL (7.4-10.4); Platelet Count 189 thou/uL (130-400); RBC Distribution Width 16.2 % (11.5-14.5); Red Blood Cell (RBC) Count 3.19 mill/uL (4.20-5.40); White Blood Cell (WBC) Count 9.1 thou/uL (4.8-10.8)
[2021-07-22 05:02] LABS: ALT (SGPT) 28 U/L (8-55); AST (SGOT) 20 U/L (5-34); Albumin 2.5 g/dL (3.5-5.0); Alkaline Phosphatase 78 U/L (40-110); Anion Gap 11 mmol/L (10-20); BUN (Urea Nitrogen) 20 mg/dL (9.8-20.1); Bilirubin, Total 0.4 mg/dL (0.2-1.2); Calc. Creatinine Clearance 386 mL/min (70-130); Calcium 8.6 mg/dL (7.8-10.44); Carbon Dioxide 26 mmol/L (22-29); Chloride 109 mmol/L (98-107); Glucose 117 mg/dL (70-105); Magnesium 1.9 mg/dL (1.6-2.6); Phosphorus 2.2 mg/dL (2.3-4.7); Potassium 3.6 mmol/L (3.5-5.1); Protein, Total 5.5 g/dL (6.0-8.3); Sodium 142 mmol/L (136-145)
[2021-07-22] MEDS: Levothyroxine 100 MCG SDV SLOW IVP SCH (05:14)
[2021-07-22] MEDS: Piperacillin/Tazobactam 3.375 GM in Sodium Chloride 0.9% 100 ML IVPB SCH ×3 (05:14→21:59)
[2021-07-22] MEDS ORDERED: Magnesium 2 GM/50 ML 2 GM in Premix Bag 1 BAG IVPB SCH (05:15)
[2021-07-22] MEDS ORDERED: Fentanyl CADD 100 ML ONE (06:54)
[2021-07-22] MEDS: Fentanyl CADD 100 ML IV SCH (07:05)
[2021-07-22] MEDS: Dexamethasone 4 mg/ml Vial SLOW IVP SCH (08:48)
[2021-07-22] MEDS: Pantoprazole 40 MG VIAL IVP SCH (08:48)
[2021-07-22] MEDS: Polyethylene Glycol 3350 17 GM Packet PO SCH (08:49)
[2021-07-22] MEDS: Metoprolol Tartrate 25 MG TAB PO SCH ×2 (08:50→20:29)
[2021-07-22] MEDS: Amlodipine 5 MG TAB PER TUBE SCH (08:50)
[2021-07-22] MEDS: Sulfameth/Trimethoprim DS 800-160mg TAB PO SCH (08:50)
[2021-07-22] MEDS: Apixaban 5 MG TAB PO SCH ×2 (09:01→20:30)
[2021-07-22] MEDS: Mometasone 100 MCG/Formoterol 5 MCG 120 PUFF INHALER INH SCH ×2 (09:05→18:01)
[2021-07-22] MEDS: ALPRAZolam 0.5 MG TAB PO SCH ×2 (09:08→20:29)
[2021-07-22 09:10] LABS: Actual Bicarbonate (HCO3a) 25.5 mEq/L (22-28); Base Excess (BEa) 1.5 mEq/L (-2.0 to +3.0); CO2 Tension 37.8 mmHg (35.0-45.0); Calcium, Ionized (arterial) 1.19 mmol/L (1.12-1.30); Carboxyhemoglobin (COHb) 0.3 gm% (0.0-3.0); Hemoglobin (Hb) 11.4 g/dL (12.0-16.0); O2 Tension (PaO2), arterial 68.4 mmHg (80.0-100.0); pH, Arterial 7.45 (7.35-7.45)
[2021-07-22 09:11] LABS: Puncture Site LRA
[2021-07-22] MEDS ORDERED: fentaNYL 75 mcg/hour Patch TD SCH (09:30)
[2021-07-22] MEDS: Vancomycin HCl 1.25 GM in Sodium Chloride 0.9% 250 ML 250 ML IVPB SCH ×2 (09:39→21:59)
[2021-07-22] MEDS ORDERED: VANCOMYCIN 1.25 GM/250 ML BAG 1.25 GM in Premix Bag 1 BAG IVPB SCH (10:00)
[2021-07-22] MEDS: Montelukast Sodium 10 mg Tablet PO SCH (20:29)
[2021-07-23] MEDS: Dexmedetomidine 1,000 MCG in Sodium Chloride 0.9% 250 ML 240 ML IVPB SCH ×2 (00:05→16:59)
[2021-07-23 05:05] LABS: #Monocytes 0.5 thou/uL (0.11-0.59); #Neutrophils 6.6 thou/uL (1.40-6.50); %Basophils 0.1 % (0.0-1.0); %Eosinophils 0.4 % (0.0-10.0); %Lymphocytes 12.7 % (21.0-51.0); %Monocytes 5.6 % (0.0-10.0); %Neutrophils 81.2 % (42.0-75.0); Hemoglobin 9.2 g/dL (12.0-16.0); Mean Corpuscular HGB CONC 32.7 g/dL (32.0-36.0); Mean Corpuscular Hemoglobin 30.6 pg (27.0-31.0); Mean Corpuscular Volume 93.5 fL (78.0-98.0); Mean Platelet Volume 9.2 fL (7.4-10.4); Platelet Count 176 thou/uL (130-400); Red Blood Cell (RBC) Count 3.01 mill/uL (4.20-5.40); White Blood Cell (WBC) Count 8.1 thou/uL (4.8-10.8)
[2021-07-23 05:31] LABS: ALT (SGPT) 30 U/L (8-55); AST (SGOT) 18 U/L (5-34); Albumin 2.6 g/dL (3.5-5.0); Alkaline Phosphatase 75 U/L (40-110); Anion Gap 12 mmol/L (10-20); BUN (Urea Nitrogen) 24 mg/dL (9.8-20.1); Bilirubin, Total 0.4 mg/dL (0.2-1.2); Calc. Creatinine Clearance 348 mL/min (70-130); Calcium 8.4 mg/dL (7.8-10.44); Carbon Dioxide 25 mmol/L (22-29); Chloride 110 mmol/L (98-107); Globulin 2.9 g/dL (2.4-3.5); Glucose 137 mg/dL (70-105); Magnesium 2.3 mg/dL (1.6-2.6); Potassium 3.4 mmol/L (3.5-5.1); Protein, Total 5.5 g/dL (6.0-8.3); Sodium 144 mmol/L (136-145)
[2021-07-23] MEDS ORDERED: Potassium Phosphate 15 MMOL in Sodium Chloride 0.9% 250 ML 250 ML IVPB SCH (05:45)
[2021-07-23] MEDS: Piperacillin/Tazobactam 3.375 GM in Sodium Chloride 0.9% 100 ML IVPB SCH ×3 (06:09→22:28)
[2021-07-23] MEDS: Levothyroxine Sodium 50 MCG TAB PO SCH (06:09)
[2021-07-23] MEDS: Amlodipine 5 MG TAB PER TUBE SCH (08:25)
[2021-07-23] MEDS: Metoprolol Tartrate 25 MG TAB PO SCH ×2 (08:26→20:55)
[2021-07-23] MEDS: ALPRAZolam 0.5 MG TAB PO SCH ×2 (08:26→20:55)
[2021-07-23] MEDS: Apixaban 5 MG TAB PO SCH ×2 (08:26→20:55)
[2021-07-23] MEDS: Dexamethasone 4 mg/ml Vial SLOW IVP SCH (08:26)
[2021-07-23] MEDS: Pantoprazole 40 MG VIAL IVP SCH (08:27)
[2021-07-23] MEDS: Polyethylene Glycol 3350 17 GM Packet PO SCH (08:27)
[2021-07-23] MEDS: Mometasone 100 MCG/Formoterol 5 MCG 120 PUFF INHALER INH SCH ×2 (08:35→17:51)
[2021-07-23] MEDS: Vancomycin HCl 1.25 GM in Sodium Chloride 0.9% 250 ML 250 ML IVPB SCH ×2 (08:50→23:30)
[2021-07-23] MEDS: fentaNYL 75 mcg/hour Patch TD SCH (10:03)
[2021-07-23] MEDS: Metoclopramide HCl 10 MG/2 ML VIAL IVP SCH (17:05)
[2021-07-23] MEDS: Montelukast Sodium 10 mg Tablet PO SCH (20:55)
[2021-07-23 23:10] LABS: Vancomycin, Trough 21.4 ug/mL
[2021-07-24] MEDS: Metoclopramide HCl 10 MG/2 ML VIAL IVP SCH ×3 (00:06→18:33)
[2021-07-24] MEDS: Vancomycin 1 GM in Premix Bag 1 BAG IVPB SCH ×2 (00:06→14:36)
[2021-07-24] MEDS: Piperacillin/Tazobactam 3.375 GM in Sodium Chloride 0.9% 100 ML IVPB SCH ×3 (05:50→22:06)
[2021-07-24] MEDS: Levothyroxine Sodium 50 MCG TAB PO SCH (05:50)
[2021-07-24] MEDS: Mometasone 100 MCG/Formoterol 5 MCG 120 PUFF INHALER INH SCH ×2 (08:52→18:00)
[2021-07-24] MEDS: Amlodipine 5 MG TAB PER TUBE SCH (09:38)
[2021-07-24] MEDS: Dexamethasone 4 mg/ml Vial SLOW IVP SCH (09:38)
[2021-07-24] MEDS: ALPRAZolam 0.5 MG TAB PO SCH ×2 (09:38→20:55)
[2021-07-24] MEDS: Apixaban 5 MG TAB PO SCH ×2 (09:38→20:55)
[2021-07-24] MEDS: Pantoprazole 40 MG VIAL IVP SCH (09:39)
[2021-07-24] MEDS: Polyethylene Glycol 3350 17 GM Packet PO SCH (09:39)
[2021-07-24] MEDS: Metoprolol Tartrate 25 MG TAB PO SCH ×2 (09:39→20:55)
[2021-07-24] MEDS: Scopolamine 1.5 mg/72 hour Patch TD SCH (10:04)
[2021-07-24] MEDS: Sulfameth/Trimethoprim DS 800-160mg TAB PO SCH (10:04)
[2021-07-24] MEDS: Dexmedetomidine 1,000 MCG in Sodium Chloride 0.9% 250 ML 240 ML IVPB SCH (11:44)
[2021-07-24 14:58] LABS: #Eosinphils 0.1 thou/uL (0.0-0.7); #Lymphocytes 0.8 thou/uL (1.20-3.40); #Monocytes 0.4 thou/uL (0.11-0.59); #Neutrophils 7.4 thou/uL (1.40-6.50); %Basophils 0.2 % (0.0-1.0); %Eosinophils 1.4 % (0.0-10.0); %Lymphocytes 8.7 % (21.0-51.0); %Monocytes 5.1 % (0.0-10.0); %Neutrophils 84.6 % (42.0-75.0); Hemoglobin 9.9 g/dL (12.0-16.0); Mean Corpuscular HGB CONC 31.4 g/dL (32.0-36.0); Mean Corpuscular Hemoglobin 30.1 pg (27.0-31.0); Mean Corpuscular Volume 95.6 fL (78.0-98.0); Mean Platelet Volume 8.9 fL (7.4-10.4); Platelet Count 200 thou/uL (130-400); RBC Distribution Width 16.6 % (11.5-14.5); White Blood Cell (WBC) Count 8.7 thou/uL (4.8-10.8)
[2021-07-24] MEDS ORDERED: fentaNYL 50 mcg/hour Patch TD SCH (15:00)
[2021-07-24 15:06] LABS: Phosphorus 2.4 mg/dL (2.3-4.7)
[2021-07-24 15:09] LABS: ALT (SGPT) 31 U/L (8-55); AST (SGOT) 19 U/L (5-34); Albumin 2.7 g/dL (3.5-5.0); Alkaline Phosphatase 84 U/L (40-110); Anion Gap 14 mmol/L (10-20); BUN (Urea Nitrogen) 22 mg/dL (9.8-20.1); Bilirubin, Total 0.4 mg/dL (0.2-1.2); Calc. Creatinine Clearance 354 mL/min (70-130); Calcium 8.8 mg/dL (7.8-10.44); Carbon Dioxide 24 mmol/L (22-29); Chloride 110 mmol/L (98-107); Glucose 172 mg/dL (70-105); Protein, Total 5.7 g/dL (6.0-8.3); Sodium 144 mmol/L (136-145)
[2021-07-24] MEDS: Montelukast Sodium 10 mg Tablet PO SCH (20:55)
[2021-07-25] MEDS: Vancomycin 1 GM in Premix Bag 1 BAG IVPB SCH ×3 (00:02→23:01)
[2021-07-25] MEDS: Dexmedetomidine 1,000 MCG in Sodium Chloride 0.9% 250 ML 240 ML IVPB SCH ×2 (05:40→23:03)
[2021-07-25] MEDS: Levothyroxine Sodium 50 MCG TAB PO SCH (05:57)
[2021-07-25] MEDS: Mometasone 100 MCG/Formoterol 5 MCG 120 PUFF INHALER INH SCH ×2 (07:46→18:25)
[2021-07-25] MEDS: Amlodipine 5 MG TAB PER TUBE SCH (09:31)
[2021-07-25] MEDS: ALPRAZolam 0.5 MG TAB PO SCH ×2 (09:31→20:34)
[2021-07-25] MEDS: Dexamethasone 4 mg/ml Vial SLOW IVP SCH (09:32)
[2021-07-25] MEDS: Apixaban 5 MG TAB PO SCH ×2 (09:32→20:34)
[2021-07-25] MEDS: Metoprolol Tartrate 25 MG TAB PO SCH ×2 (09:32→20:34)
[2021-07-25] MEDS: Polyethylene Glycol 3350 17 GM Packet PO SCH (09:33)
[2021-07-25] MEDS: Pantoprazole 40 MG VIAL IVP SCH (09:33)
[2021-07-25 14:05] LABS: #Eosinphils 0.1 thou/uL (0.0-0.7); #Lymphocytes 1.1 thou/uL (1.20-3.40); #Monocytes 0.5 thou/uL (0.11-0.59); %Basophils 0.1 % (0.0-1.0); %Eosinophils 1.2 % (0.0-10.0); %Lymphocytes 12.2 % (21.0-51.0); %Monocytes 5.6 % (0.0-10.0); %Neutrophils 80.9 % (42.0-75.0); Mean Corpuscular HGB CONC 32.2 g/dL (32.0-36.0); Mean Corpuscular Hemoglobin 30.3 pg (27.0-31.0); Mean Corpuscular Volume 94.2 fL (78.0-98.0); Mean Platelet Volume 8.7 fL (7.4-10.4); Platelet Count 219 thou/uL (130-400); RBC Distribution Width 16.6 % (11.5-14.5); Red Blood Cell (RBC) Count 3.28 mill/uL (4.20-5.40); White Blood Cell (WBC) Count 8.7 thou/uL (4.8-10.8)
[2021-07-25 14:21] LABS: ALT (SGPT) 29 U/L (8-55); AST (SGOT) 18 U/L (5-34); Albumin 2.6 g/dL (3.5-5.0); Alkaline Phosphatase 80 U/L (40-110); Anion Gap 15 mmol/L (10-20); BUN (Urea Nitrogen) 24 mg/dL (9.8-20.1); Bilirubin, Total 0.4 mg/dL (0.2-1.2); Calc. Creatinine Clearance 309 mL/min (70-130); Calcium 9.1 mg/dL (7.8-10.44); Carbon Dioxide 19 mmol/L (22-29); Chloride 111 mmol/L (98-107); Globulin 3.7 g/dL (2.4-3.5); Glucose 182 mg/dL (70-105); Phosphorus 2.5 mg/dL (2.3-4.7); Potassium 4.3 mmol/L (3.5-5.1); Protein, Total 6.3 g/dL (6.0-8.3); Sodium 141 mmol/L (136-145)
[2021-07-25] MEDS: Montelukast Sodium 10 mg Tablet PO SCH (20:34)
[2021-07-25] MEDS: Metoclopramide HCl 10 MG/2 ML VIAL IVP SCH (22:22)
[2021-07-26] MEDS: Levothyroxine Sodium 50 MCG TAB PO SCH (05:26)
[2021-07-26] MEDS: Metoclopramide HCl 10 MG/2 ML VIAL IVP SCH ×3 (05:26→20:48)
[2021-07-26] MEDS ORDERED: Magnesium 2 GM/50 ML 2 GM in Premix Bag 1 BAG IVPB SCH (06:30)
[2021-07-26] MEDS ORDERED: fentaNYL 50 mcg/hour Patch TD SCH (08:15)
[2021-07-26] MEDS: fentaNYL 75 mcg/hour Patch TD SCH ×2 (08:31→11:28)
[2021-07-26] MEDS: ALPRAZolam 0.5 MG TAB PO SCH ×2 (08:35→20:48)
[2021-07-26] MEDS: Apixaban 5 MG TAB PO SCH ×2 (08:35→20:48)
[2021-07-26] MEDS: Amlodipine 5 MG TAB PER TUBE SCH (08:35)
[2021-07-26] MEDS: Dexamethasone 4 mg/ml Vial SLOW IVP SCH (08:36)
[2021-07-26] MEDS: Polyethylene Glycol 3350 17 GM Packet PO SCH (08:36)
[2021-07-26] MEDS: Metoprolol Tartrate 25 MG TAB PO SCH ×2 (08:36→20:48)
[2021-07-26] MEDS: Pantoprazole 40 MG VIAL IVP SCH (08:36)
[2021-07-26] MEDS: Sulfameth/Trimethoprim DS 800-160mg TAB PO SCH (08:37)
[2021-07-26] MEDS: Mometasone 100 MCG/Formoterol 5 MCG 120 PUFF INHALER INH SCH ×2 (09:04→18:53)
[2021-07-26 15:20] LABS: Hemoglobin 9.5 g/dL (12.0-16.0); Mean Corpuscular HGB CONC 32.2 g/dL (32.0-36.0); Mean Corpuscular Hemoglobin 30.3 pg (27.0-31.0); Mean Platelet Volume 8.9 fL (7.4-10.4); Platelet Count 223 thou/uL (130-400); RBC Distribution Width 16.6 % (11.5-14.5); Red Blood Cell (RBC) Count 3.14 mill/uL (4.20-5.40)
[2021-07-26 15:33] LABS: Anisocytosis SLIGHT = 6-15 cells (100X) (0-5/hpf); Band 3 % (5-11); Lymphocytes 13 % (21-51); MDiff Complete? YES; Monocytes 8 % (0-10); Neutrophil 76 % (42-75); Platelet Morphology Comment Appears Adequate; Polychromasia SLIGHT = 2-3 cells (100X) (0-2/hpf); White Blood Cell (WBC) Count 8.2 thou/uL (4.8-10.8)
[2021-07-26 15:37] LABS: Anion Gap 13 mmol/L (10-20); BUN (Urea Nitrogen) 22 mg/dL (9.8-20.1); Calc. Creatinine Clearance 372 mL/min (70-130); Carbon Dioxide 22 mmol/L (22-29); Chloride 111 mmol/L (98-107); Potassium 4.1 mmol/L (3.5-5.1); Sodium 142 mmol/L (136-145)
[2021-07-26 15:38] LABS: ALT (SGPT) 31 U/L (8-55); AST (SGOT) 15 U/L (5-34); Albumin 2.6 g/dL (3.5-5.0); Alkaline Phosphatase 78 U/L (40-110); Bilirubin, Total 0.3 mg/dL (0.2-1.2); Calcium 8.6 mg/dL (7.8-10.44); Globulin 2.8 g/dL (2.4-3.5); Glucose 169 mg/dL (70-105); Magnesium 2.3 mg/dL (1.6-2.6); Protein, Total 5.4 g/dL (6.0-8.3)
[2021-07-26] MEDS: Dexmedetomidine 1,000 MCG in Sodium Chloride 0.9% 250 ML 240 ML IVPB SCH (16:53)
[2021-07-26] MEDS: Vancomycin 1 GM in Premix Bag 1 BAG IVPB SCH (16:58)
[2021-07-26] MEDS: Montelukast Sodium 10 mg Tablet PO SCH (20:48)
[2021-07-27] MEDS: Vancomycin 1 GM in Premix Bag 1 BAG IVPB SCH ×2 (00:06→12:04)
[2021-07-27] MEDS: Lorazepam 2 MG/ML VIAL SLOW IVP PRN (03:03)
[2021-07-27] MEDS: Metoclopramide HCl 10 MG/2 ML VIAL IVP SCH ×3 (06:21→21:20)
[2021-07-27] MEDS: Levothyroxine Sodium 50 MCG TAB PO SCH (06:21)
[2021-07-27] MEDS: Dexmedetomidine 1,000 MCG in Sodium Chloride 0.9% 250 ML 240 ML IVPB SCH (06:22)
[2021-07-27 07:04] LABS: Band 3 % (5-11); Hemoglobin 9.1 g/dL (12.0-16.0); Hypochromia SLIGHT = 6-15 cells (100X) (0-5/hpf); Lymphocytes 16 % (21-51); MDiff Complete? YES; Mean Corpuscular HGB CONC 31.6 g/dL (32.0-36.0); Mean Corpuscular Hemoglobin 29.8 pg (27.0-31.0); Mean Corpuscular Volume 94.5 fL (78.0-98.0); Mean Platelet Volume 9.5 fL (7.4-10.4); Monocytes 6 % (0-10); Neutrophil 75 % (42-75); Platelet Count 221 thou/uL (130-400); Platelet Morphology Comment Appears Adequate; RBC Distribution Width 16.7 % (11.5-14.5); Red Blood Cell (RBC) Count 3.05 mill/uL (4.20-5.40); White Blood Cell (WBC) Count 6.9 thou/uL (4.8-10.8)
[2021-07-27 07:07] LABS: ALT (SGPT) 28 U/L (8-55); AST (SGOT) 17 U/L (5-34); Albumin 2.5 g/dL (3.5-5.0); Alkaline Phosphatase 74 U/L (40-110); Anion Gap 12 mmol/L (10-20); BUN (Urea Nitrogen) 22 mg/dL (9.8-20.1); Bilirubin, Total 0.4 mg/dL (0.2-1.2); Calc. Creatinine Clearance 386 mL/min (70-130); Calcium 8.8 mg/dL (7.8-10.44); Carbon Dioxide 24 mmol/L (22-29); Chloride 110 mmol/L (98-107); Globulin 2.8 g/dL (2.4-3.5); Glucose 115 mg/dL (70-105); Magnesium 2.2 mg/dL (1.6-2.6); Phosphorus 2.9 mg/dL (2.3-4.7); Potassium 3.8 mmol/L (3.5-5.1); Protein, Total 5.3 g/dL (6.0-8.3); Sodium 142 mmol/L (136-145)
[2021-07-27] MEDS: Mometasone 100 MCG/Formoterol 5 MCG 120 PUFF INHALER INH SCH ×2 (08:11→17:55)
[2021-07-27] MEDS: Dexamethasone 4 mg/ml Vial SLOW IVP SCH (08:52)
[2021-07-27] MEDS: Amlodipine 5 MG TAB PER TUBE SCH ×4 (08:55→12:20)
[2021-07-27] MEDS: ALPRAZolam 0.5 MG TAB PO SCH ×3 (08:55→15:17)
[2021-07-27] MEDS: Pantoprazole 40 MG VIAL IVP SCH (08:56)
[2021-07-27] MEDS: Metoprolol Tartrate 25 MG TAB PO SCH ×3 (08:56→21:20)
[2021-07-27] MEDS: Scopolamine 1.5 mg/72 hour Patch TD SCH (08:58)
[2021-07-27] MEDS: Polyethylene Glycol 3350 17 GM Packet PO SCH ×2 (08:58→12:27)
[2021-07-27] MEDS ORDERED: GASTROGRAFIN 30 ML BOT ONE (09:02)
[2021-07-27] MEDS ORDERED: Dexamethasone 10 MG/ML VIAL SLOW IVP SCH (09:45)
[2021-07-27] MEDS: Apixaban 5 MG TAB PO SCH ×2 (12:11→21:20)
[2021-07-27] MEDS: Montelukast Sodium 10 mg Tablet PO SCH (21:20)
[2021-07-27] MEDS: Fentanyl 100 MCG/2 ML VIAL SLOW IVP PRN (21:52)
[2021-07-27 23:26] LABS: Vancomycin, Trough 22.3 ug/mL
[2021-07-28] MEDS: Dexmedetomidine 1,000 MCG in Sodium Chloride 0.9% 250 ML 240 ML IVPB SCH (00:16)
[2021-07-28] MEDS: Lorazepam 2 MG/ML VIAL SLOW IVP PRN (03:59)
[2021-07-28] MEDS: Levothyroxine Sodium 50 MCG TAB PO SCH (05:38)
[2021-07-28] MEDS: Metoclopramide HCl 10 MG/2 ML VIAL IVP SCH ×3 (05:40→22:06)
[2021-07-28] MEDS: Fentanyl 100 MCG/2 ML VIAL SLOW IVP PRN (06:11)
[2021-07-28 06:45] LABS: Actual Bicarbonate (HCO3a) 18.2 mEq/L (22-28); Base Excess (BEa) -3.7 mEq/L (-2.0 to +3.0); Calcium, Ionized (arterial) 1.19 mmol/L (1.12-1.30); Carboxyhemoglobin (COHb) 0.2 gm% (0.0-3.0); Hemoglobin (Hb) 10.7 g/dL (12.0-16.0); Potassium - ABG Lab 3.11 mmol/L (3.70-5.30)
[2021-07-28 06:46] LABS: O2 Tension (PaO2), arterial 51.8 mmHg (80.0-100.0); Puncture Site RRAP
[2021-07-28] MEDS: Mometasone 100 MCG/Formoterol 5 MCG 120 PUFF INHALER INH SCH ×2 (06:50→18:45)
[2021-07-28] MEDS ORDERED: Norepinephrine 8 MG/0.9% NS 250 ML ONE (08:05)
[2021-07-28] MEDS ORDERED: Vecuronium 10 MG VIAL IVP PRN (08:44)
[2021-07-28] MEDS ORDERED: Lidocaine 1% w/Epinephrine 1:100K 20 ML VIAL ONE (08:45)
[2021-07-28] MEDS ORDERED: Fentanyl 100 MCG/2 ML VIAL SLOW IVP SCH (08:45)
[2021-07-28] MEDS ORDERED: Vecuronium 10 MG VIAL ONE (08:48)
[2021-07-28] MEDS: Metoprolol Tartrate 25 MG TAB PO SCH ×2 (09:00→22:06)
[2021-07-28] MEDS: Amlodipine 5 MG TAB PER TUBE SCH (09:00)
[2021-07-28] MEDS: ALPRAZolam 0.5 MG TAB PO SCH ×2 (10:01→22:06)
[2021-07-28] MEDS ORDERED: Sodium Chloride 0.9% 1,000 ML IV SCH (10:45)
[2021-07-28] MEDS: Fentanyl CADD 100 ML IV SCH (11:17)
[2021-07-28] MEDS: Pantoprazole 40 MG VIAL IVP SCH (11:56)
[2021-07-28] MEDS: Apixaban 5 MG TAB PO SCH ×2 (12:01→22:06)
[2021-07-28] MEDS: Dexamethasone 10 MG/ML VIAL SLOW IVP SCH (12:01)
[2021-07-28] MEDS ORDERED: Digoxin 0.5 MG/2 ML AMP SLOW IVP SCH (13:00)
[2021-07-28 16:08] LABS: Mean Corpuscular Hemoglobin 29.7 pg (27.0-31.0); Mean Corpuscular Volume 95.9 fL (78.0-98.0); Platelet Count 252 thou/uL (130-400); RBC Distribution Width 17.1 % (11.5-14.5); Red Blood Cell (RBC) Count 3.37 mill/uL (4.20-5.40); White Blood Cell (WBC) Count 12.9 thou/uL (4.8-10.8)
[2021-07-28 16:27] LABS: ALT (SGPT) 46 U/L (8-55); AST (SGOT) 30 U/L (5-34); Albumin 2.3 g/dL (3.5-5.0); Alkaline Phosphatase 88 U/L (40-110); Anion Gap 14 mmol/L (10-20); BUN (Urea Nitrogen) 28 mg/dL (9.8-20.1); Calc. Creatinine Clearance 246 mL/min (70-130); Calcium 8.4 mg/dL (7.8-10.44); Carbon Dioxide 19 mmol/L (22-29); Chloride 112 mmol/L (98-107); Globulin 2.7 g/dL (2.4-3.5); Glucose 129 mg/dL (70-105); Magnesium 1.7 mg/dL (1.6-2.6); Phosphorus 2.9 mg/dL (2.3-4.7); Potassium 3.7 mmol/L (3.5-5.1); Sodium 141 mmol/L (136-145)
[2021-07-28 16:30] LABS: Anisocytosis SLIGHT = 6-15 cells (100X) (0-5/hpf); Band 38 % (5-11); Lymphocytes 13 % (21-51); MDiff Complete? YES; Metamyelocyte 6 % (0-0); Monocytes 9 % (0-10); Myelocyte 2 % (0-0); Neutrophil 32 % (42-75); Nucleated RBC 7 % (0); Platelet Morphology Comment Appears Adequate; Polychromasia SLIGHT = 2-3 cells (100X) (0-2/hpf)
[2021-07-28] MEDS: Norepinephrine 8 MG/0.9% NS 250 ML IVPB SCH (18:24)
[2021-07-28] MEDS ORDERED: Magnesium 2 GM/50 ML 2 GM in Premix Bag 1 BAG IVPB SCH (22:00)
[2021-07-28] MEDS: Montelukast Sodium 10 mg Tablet PO SCH (22:06)
[2021-07-29] MEDS ORDERED: Fentanyl CADD 100 ML ONE ×2 (00:48→10:23)
[2021-07-29] MEDS: Fentanyl CADD 100 ML IV SCH ×2 (00:51→10:27)
[2021-07-29] MEDS: Norepinephrine 8 MG/0.9% NS 250 ML IVPB SCH ×3 (01:03→17:58)
[2021-07-29] MEDS: Levothyroxine Sodium 50 MCG TAB PO SCH (05:24)
[2021-07-29] MEDS: Metoclopramide HCl 10 MG/2 ML VIAL IVP SCH ×3 (05:24→21:02)
[2021-07-29] MEDS: Mometasone 100 MCG/Formoterol 5 MCG 120 PUFF INHALER INH SCH ×2 (06:48→18:16)
[2021-07-29] MEDS: Lorazepam 2 MG/ML VIAL SLOW IVP PRN (07:32)
[2021-07-29] MEDS: Dexmedetomidine 1,000 MCG in Sodium Chloride 0.9% 250 ML 240 ML IVPB SCH ×2 (07:39→17:54)
[2021-07-29] MEDS: Polyethylene Glycol 3350 17 GM Packet PO SCH (08:40)
[2021-07-29] MEDS: Pantoprazole 40 MG VIAL IVP SCH (08:40)
[2021-07-29] MEDS: Dexamethasone 10 MG/ML VIAL SLOW IVP SCH (08:41)
[2021-07-29] MEDS: ALPRAZolam 0.5 MG TAB PO SCH ×2 (08:41→21:02)
[2021-07-29] MEDS: Apixaban 5 MG TAB PO SCH ×2 (08:41→21:02)
[2021-07-29] MEDS: Amlodipine 5 MG TAB PER TUBE SCH (10:52)
[2021-07-29] MEDS: Metoprolol Tartrate 25 MG TAB PO SCH ×2 (10:52→21:02)
[2021-07-29] MEDS: Lactated Ringer's 1,000 ML IV SCH (12:23)
[2021-07-29] MEDS: Sulfameth/Trimethoprim DS 800-160mg TAB PO SCH (19:27)
[2021-07-29] MEDS: Montelukast Sodium 10 mg Tablet PO SCH (21:02)
[2021-07-30] MEDS ORDERED: Fentanyl CADD 100 ML ONE ×2 (02:00→22:17)
[2021-07-30] MEDS: Fentanyl CADD 100 ML IV SCH ×2 (02:05→22:21)
[2021-07-30] MEDS: Lactated Ringer's 1,000 ML IV SCH (02:08)
[2021-07-30 05:07] LABS: Band 23 % (5-11); Hemoglobin 9.2 g/dL (12.0-16.0); Lymphocytes 8 % (21-51); MDiff Complete? YES; Mean Corpuscular Hemoglobin 30.5 pg (27.0-31.0); Mean Corpuscular Volume 95.2 fL (78.0-98.0); Mean Platelet Volume 8.9 fL (7.4-10.4); Metamyelocyte 4 % (0-0); Monocytes 5 % (0-10); Neutrophil 59 % (42-75); Platelet Count 166 thou/uL (130-400); Platelet Morphology Comment Appears Adequate; RBC Distribution Width 17.1 % (11.5-14.5); RBC Morphology Normal; Reactive Lymphocytes 1 % (0-10); Toxic Granulation SLIGHT; White Blood Cell (WBC) Count 10.4 thou/uL (4.8-10.8)
[2021-07-30 05:21] LABS: Albumin 2.1 g/dL (3.5-5.0)
[2021-07-30 05:22] LABS: Chloride 111 mmol/L (98-107); Potassium 3.6 mmol/L (3.5-5.1); Sodium 142 mmol/L (136-145)
[2021-07-30 05:23] LABS: Calcium 8.1 mg/dL (7.8-10.44); Glucose 152 mg/dL (70-105)
[2021-07-30 05:24] LABS: Globulin 2.7 g/dL (2.4-3.5); Protein, Total 4.8 g/dL (6.0-8.3)
[2021-07-30 05:25] LABS: Bilirubin, Total 0.6 mg/dL (0.2-1.2); Carbon Dioxide 20 mmol/L (22-29)
[2021-07-30 05:26] LABS: Alkaline Phosphatase 114 U/L (40-110)
[2021-07-30 05:27] LABS: Calc. Creatinine Clearance 287 mL/min (70-130)
[2021-07-30 05:28] LABS: AST (SGOT) 12 U/L (5-34); BUN (Urea Nitrogen) 36 mg/dL (9.8-20.1)
[2021-07-30 05:29] LABS: ALT (SGPT) 33 U/L (8-55)
[2021-07-30 05:39] LABS: Anion Gap 15 mmol/L (10-20)
[2021-07-30] MEDS: Levothyroxine Sodium 50 MCG TAB PO SCH (05:51)
[2021-07-30] MEDS: Metoclopramide HCl 10 MG/2 ML VIAL IVP SCH ×3 (05:51→21:27)
[2021-07-30] MEDS: Norepinephrine 8 MG/0.9% NS 250 ML IVPB SCH (05:55)
[2021-07-30 06:08] LABS: Vancomycin, Trough 27.2 ug/mL
[2021-07-30] MEDS: Mometasone 100 MCG/Formoterol 5 MCG 120 PUFF INHALER INH SCH ×2 (07:04→18:09)
[2021-07-30 07:53] LABS: Base Excess (BEa) -6.3 mEq/L (-2.0 to +3.0); CO2 Tension 31.2 mmHg (35.0-45.0); Calcium, Ionized (arterial) 1.19 mmol/L (1.12-1.30); Carboxyhemoglobin (COHb) 0.3 gm% (0.0-3.0); Hemoglobin (Hb) 9.1 g/dL (12.0-16.0); O2 Tension (PaO2), arterial 108.1 mmHg (80.0-100.0); Potassium - ABG Lab 3.49 mmol/L (3.70-5.30); pH, Arterial 7.38 (7.35-7.45)
[2021-07-30 07:55] LABS: Puncture Site LRA
[2021-07-30] MEDS: ALPRAZolam 0.5 MG TAB PO SCH ×2 (08:00→21:27)
[2021-07-30] MEDS: Apixaban 5 MG TAB PO SCH ×2 (08:00→21:27)
[2021-07-30] MEDS: Scopolamine 1.5 mg/72 hour Patch TD SCH (08:01)
[2021-07-30] MEDS: Dexamethasone 10 MG/ML VIAL SLOW IVP SCH (08:02)
[2021-07-30] MEDS: Metoprolol Tartrate 25 MG TAB PO SCH ×2 (08:11→21:28)
[2021-07-30] MEDS: Polyethylene Glycol 3350 17 GM Packet PO SCH (08:11)
[2021-07-30] MEDS: Amlodipine 5 MG TAB PER TUBE SCH (08:11)
[2021-07-30] MEDS: Dexmedetomidine 1,000 MCG in Sodium Chloride 0.9% 250 ML 240 ML IVPB SCH (09:59)
[2021-07-30 10:07] LABS: Triglycerides 110 mg/dL (Less than 150)
[2021-07-30] MEDS ORDERED: Sterile Water 10 ML VIAL FS PRN (11:50)
[2021-07-30] MEDS ORDERED: Ziprasidone 20 MG VIAL IM SCH (21:00)
[2021-07-30] MEDS: Gabapentin 100 MG CAP PO SCH (21:27)
[2021-07-30] MEDS: Montelukast Sodium 10 mg Tablet PO SCH (21:27)
[2021-07-30] MEDS ORDERED: Sterile Water 10 ML ONE (21:31)
[2021-07-31] MEDS: Lorazepam 2 MG/ML VIAL SLOW IVP PRN ×3 (02:59→19:59)
[2021-07-31] MEDS: Dexmedetomidine 1,000 MCG in Sodium Chloride 0.9% 250 ML 240 ML IVPB SCH ×2 (04:21→20:20)
[2021-07-31 05:49] LABS: ALT (SGPT) 27 U/L (8-55); AST (SGOT) 7 U/L (5-34); Alkaline Phosphatase 123 U/L (40-110); Anion Gap 14 mmol/L (10-20); BUN (Urea Nitrogen) 39 mg/dL (9.8-20.1); Bilirubin, Total 0.4 mg/dL (0.2-1.2); Calc. Creatinine Clearance 283 mL/min (70-130); Calcium 8.2 mg/dL (7.8-10.44); Carbon Dioxide 20 mmol/L (22-29); Chloride 111 mmol/L (98-107); Globulin 2.8 g/dL (2.4-3.5); Glucose 209 mg/dL (70-105); Potassium 3.7 mmol/L (3.5-5.1); Protein, Total 4.8 g/dL (6.0-8.3); Sodium 141 mmol/L (136-145)
[2021-07-31 05:51] LABS: Band 8 % (5-11); Hemoglobin 8.5 g/dL (12.0-16.0); Hypochromia SLIGHT = 6-15 cells (100X) (0-5/hpf); Lymphocytes 17 % (21-51); MDiff Complete? YES; Mean Corpuscular HGB CONC 30.3 g/dL (32.0-36.0); Mean Corpuscular Hemoglobin 29.4 pg (27.0-31.0); Mean Corpuscular Volume 97.1 fL (78.0-98.0); Mean Platelet Volume 10.2 fL (7.4-10.4); Monocytes 4 % (0-10); Neutrophil 71 % (42-75); Platelet Count 123 thou/uL (130-400); Platelet Morphology Comment Appears Adequate; RBC Distribution Width 17.1 % (11.5-14.5); Red Blood Cell (RBC) Count 2.88 mill/uL (4.20-5.40)
[2021-07-31] MEDS ORDERED: Vancomycin HCl 1.25 GM in Sodium Chloride 0.9% 250 ML 250 ML IVPB SCH (06:00)
[2021-07-31] MEDS: Levothyroxine Sodium 50 MCG TAB PO SCH (06:08)
[2021-07-31] MEDS: Metoclopramide HCl 10 MG/2 ML VIAL IVP SCH ×3 (06:08→20:43)
[2021-07-31 07:22] LABS: Actual Bicarbonate (HCO3a) 18.2 mEq/L (22-28); Base Excess (BEa) -6.1 mEq/L (-2.0 to +3.0); CO2 Tension 30.9 mmHg (35.0-45.0); Calcium, Ionized (arterial) 1.22 mmol/L (1.12-1.30); Carboxyhemoglobin (COHb) 0.9 gm% (0.0-3.0); Hemoglobin (Hb) 7.5 g/dL (12.0-16.0); O2 Tension (PaO2), arterial 130.5 mmHg (80.0-100.0); Potassium - ABG Lab 3.69 mmol/L (3.70-5.30); pH, Arterial 7.39 (7.35-7.45)
[2021-07-31] MEDS: Mometasone 100 MCG/Formoterol 5 MCG 120 PUFF INHALER INH SCH ×2 (08:01→18:06)
[2021-07-31 08:03] LABS: Puncture Site RRA
[2021-07-31 08:04] LABS: ALV-art Gradient 116.075 mmHg (0-20)
[2021-07-31] MEDS: Apixaban 5 MG TAB PO SCH ×2 (09:29→20:42)
[2021-07-31] MEDS: Dexamethasone 10 MG/ML VIAL SLOW IVP SCH (09:29)
[2021-07-31] MEDS: ALPRAZolam 0.5 MG TAB PO SCH ×2 (09:30→20:42)
[2021-07-31] MEDS: Gabapentin 100 MG CAP PO SCH ×2 (09:30→20:43)
[2021-07-31] MEDS: Metoprolol Tartrate 25 MG TAB PO SCH ×2 (09:31→23:06)
[2021-07-31] MEDS: Amlodipine 5 MG TAB PER TUBE SCH (09:31)
[2021-07-31] MEDS: Polyethylene Glycol 3350 17 GM Packet PO SCH (09:31)
[2021-07-31] MEDS ORDERED: Fentanyl CADD 100 ML ONE (13:40)
[2021-07-31] MEDS: Fentanyl CADD 100 ML IV SCH (13:43)
[2021-07-31] MEDS: Montelukast Sodium 10 mg Tablet PO SCH (20:42)
[2021-08-01] MEDS ORDERED: Fentanyl CADD 100 ML ONE (02:58)
[2021-08-01] MEDS: Fentanyl CADD 100 ML IV SCH (03:04)
[2021-08-01 04:58] LABS: Hemoglobin 8.7 g/dL (12.0-16.0); Mean Corpuscular HGB CONC 32.3 g/dL (32.0-36.0); Mean Corpuscular Hemoglobin 30.5 pg (27.0-31.0); Mean Corpuscular Volume 94.4 fL (78.0-98.0); Mean Platelet Volume 10.3 fL (7.4-10.4); Platelet Count 110 thou/uL (130-400); Red Blood Cell (RBC) Count 2.86 mill/uL (4.20-5.40); White Blood Cell (WBC) Count 14.2 thou/uL (4.8-10.8)
[2021-08-01 05:02] LABS: ALT (SGPT) 23 U/L (8-55); AST (SGOT) 7 U/L (5-34); Alkaline Phosphatase 123 U/L (40-110); BUN (Urea Nitrogen) 42 mg/dL (9.8-20.1); Bilirubin, Total 0.4 mg/dL (0.2-1.2); Calc. Creatinine Clearance 258 mL/min (70-130); Calcium 8.2 mg/dL (7.8-10.44); Carbon Dioxide 20 mmol/L (22-29); Chloride 113 mmol/L (98-107); Globulin 2.8 g/dL (2.4-3.5); Glucose 219 mg/dL (70-105); Potassium 4.1 mmol/L (3.5-5.1); Protein, Total 4.8 g/dL (6.0-8.3); Sodium 143 mmol/L (136-145)
[2021-08-01 05:26] LABS: Anion Gap 14 mmol/L (10-20)
[2021-08-01 05:31] LABS: Band 41 % (5-11); Lymphocytes 9 % (21-51); MDiff Complete? YES; Metamyelocyte 1 % (0-0); Monocytes 5 % (0-10); Myelocyte 2 % (0-0); Neutrophil 42 % (42-75); Platelet Morphology Comment Appears Decreased
[2021-08-01] MEDS: Levothyroxine Sodium 50 MCG TAB PO SCH (06:17)
[2021-08-01] MEDS: Metoclopramide HCl 10 MG/2 ML VIAL IVP SCH ×3 (06:17→21:24)
[2021-08-01 07:17] LABS: Actual Bicarbonate (HCO3a) 17.8 mEq/L (22-28); Base Excess (BEa) -6.1 mEq/L (-2.0 to +3.0); CO2 Tension 29.4 mmHg (35.0-45.0); Calcium, Ionized (arterial) 1.23 mmol/L (1.12-1.30); Carboxyhemoglobin (COHb) 0.8 gm% (0.0-3.0); Hemoglobin (Hb) 8.4 g/dL (12.0-16.0)
[2021-08-01] MEDS: Dexamethasone 10 MG/ML VIAL SLOW IVP SCH (08:16)
[2021-08-01] MEDS: ALPRAZolam 0.5 MG TAB PO SCH ×2 (08:16→21:24)
[2021-08-01] MEDS: Dexmedetomidine 1,000 MCG in Sodium Chloride 0.9% 250 ML 240 ML IVPB SCH (08:17)
[2021-08-01] MEDS: Apixaban 5 MG TAB PO SCH ×2 (08:17→21:24)
[2021-08-01] MEDS: Gabapentin 100 MG CAP PO SCH ×2 (08:17→21:24)
[2021-08-01] MEDS: Metoprolol Tartrate 25 MG TAB PO SCH (08:18)
[2021-08-01 08:19] LABS: Puncture Site RRA
[2021-08-01] MEDS: Amlodipine 5 MG TAB PER TUBE SCH (08:19)
[2021-08-01] MEDS: Polyethylene Glycol 3350 17 GM Packet PO SCH (08:19)
[2021-08-01] MEDS: Mometasone 100 MCG/Formoterol 5 MCG 120 PUFF INHALER INH SCH ×2 (08:21→19:43)
[2021-08-01] MEDS ORDERED: fentaNYL 100 mcg/hour Patch TD SCH (09:30)
[2021-08-01] MEDS ORDERED: Furosemide 40 MG/4 ML VIAL SLOW IVP SCH (09:30)
[2021-08-01] MEDS: Lorazepam 2 MG/ML VIAL SLOW IVP PRN ×2 (14:43→19:49)
[2021-08-01] MEDS: Norepinephrine 8 MG/0.9% NS 250 ML IVPB SCH (17:17)
[2021-08-01] MEDS: Montelukast Sodium 10 mg Tablet PO SCH (21:24)
[2021-08-02] MEDS ORDERED: Fentanyl CADD 100 ML ONE (02:54)
[2021-08-02] MEDS: Dexmedetomidine 1,000 MCG in Sodium Chloride 0.9% 250 ML 240 ML IVPB SCH ×2 (03:11→15:45)
[2021-08-02] MEDS ORDERED: DISCONTINUE PREVIOUS NARCOTIC PAIN MEDICATIONS AND BENZODIAZEPINES FS SCH (03:15)
[2021-08-02] MEDS ORDERED: Morphine 2 MG/ML VIAL SLOW IVP PRN (03:15)
[2021-08-02] MEDS ORDERED: Propofol BOLUS 1,000 MG/100 ML VIAL IV PRN (03:15)
[2021-08-02] MEDS ORDERED: Fentanyl CADD 100 ML IV SCH (03:15)
[2021-08-02] MEDS ORDERED: Fentanyl BOLUS 250 ML IVPB PRN (03:15)
[2021-08-02] MEDS ORDERED: Propofol 1,000 MG/100 ML VIAL IV PRN (03:15)
[2021-08-02 05:29] LABS: Hemoglobin 8.3 g/dL (12.0-16.0); Mean Corpuscular HGB CONC 30.9 g/dL (32.0-36.0); Mean Corpuscular Hemoglobin 29.5 pg (27.0-31.0); Mean Corpuscular Volume 95.3 fL (78.0-98.0); Mean Platelet Volume 11.3 fL (7.4-10.4); Platelet Count 83 thou/uL (130-400); RBC Distribution Width 17.2 % (11.5-14.5); White Blood Cell (WBC) Count 21.2 thou/uL (4.8-10.8)
[2021-08-02 05:39] LABS: ALT (SGPT) 19 U/L (8-55); AST (SGOT) 8 U/L (5-34); Albumin 1.9 g/dL (3.5-5.0); Alkaline Phosphatase 140 U/L (40-110); Anion Gap 15 mmol/L (10-20); BUN (Urea Nitrogen) 44 mg/dL (9.8-20.1); Bilirubin, Total 0.5 mg/dL (0.2-1.2); Calc. Creatinine Clearance 255 mL/min (70-130); Calcium 8.3 mg/dL (7.8-10.44); Carbon Dioxide 21 mmol/L (22-29); Chloride 111 mmol/L (98-107); Globulin 2.8 g/dL (2.4-3.5); Glucose 224 mg/dL (70-105); Magnesium 2.5 mg/dL (1.6-2.6); Phosphorus 3.8 mg/dL (2.3-4.7); Potassium 4.3 mmol/L (3.5-5.1); Protein, Total 4.7 g/dL (6.0-8.3); Sodium 143 mmol/L (136-145)
[2021-08-02] MEDS: Metoclopramide HCl 10 MG/2 ML VIAL IVP SCH ×3 (05:59→21:05)
[2021-08-02] MEDS: Levothyroxine Sodium 50 MCG TAB PO SCH (05:59)
[2021-08-02 06:51] LABS: Anisocytosis SLIGHT = 6-15 cells (100X) (0-5/hpf); Band 39 % (5-11); Lymphocytes 13 % (21-51); MDiff Complete? YES; Metamyelocyte 5 % (0-0); Monocytes 2 % (0-10); Myelocyte 1 % (0-0); Neutrophil 40 % (42-75); Platelet Morphology Comment Appears Decreased
[2021-08-02] MEDS: Mometasone 100 MCG/Formoterol 5 MCG 120 PUFF INHALER INH SCH ×2 (07:11→18:23)
[2021-08-02] MEDS ORDERED: Furosemide 40 MG/4 ML VIAL SLOW IVP SCH (08:15)
[2021-08-02] MEDS: ALPRAZolam 0.5 MG TAB PO SCH ×2 (08:33→20:01)
[2021-08-02] MEDS: Apixaban 5 MG TAB PO SCH ×2 (08:34→20:01)
[2021-08-02] MEDS: Dexamethasone 10 MG/ML VIAL SLOW IVP SCH (08:35)
[2021-08-02] MEDS: Gabapentin 100 MG CAP PO SCH ×2 (08:35→20:01)
[2021-08-02] MEDS: Polyethylene Glycol 3350 17 GM Packet PO SCH (08:36)
[2021-08-02] MEDS: Montelukast Sodium 10 mg Tablet PO SCH (20:01)
[2021-08-03] MEDS: Norepinephrine 8 MG/0.9% NS 250 ML IVPB SCH (03:17)
[2021-08-03] MEDS: Dexmedetomidine 1,000 MCG in Sodium Chloride 0.9% 250 ML 240 ML IVPB SCH (04:04)
[2021-08-03 05:16] LABS: Albumin 1.8 g/dL (3.5-5.0)
[2021-08-03 05:17] LABS: Chloride 111 mmol/L (98-107); Potassium 4.4 mmol/L (3.5-5.1); Sodium 144 mmol/L (136-145)
[2021-08-03 05:18] LABS: Calcium 8.3 mg/dL (7.8-10.44); Glucose 225 mg/dL (70-105)
[2021-08-03 05:19] LABS: Globulin 2.9 g/dL (2.4-3.5); Protein, Total 4.7 g/dL (6.0-8.3)
[2021-08-03 05:20] LABS: Bilirubin, Total 0.4 mg/dL (0.2-1.2); Carbon Dioxide 22 mmol/L (22-29)
[2021-08-03 05:21] LABS: Alkaline Phosphatase 143 U/L (40-110)
[2021-08-03 05:22] LABS: BUN (Urea Nitrogen) 48 mg/dL (9.8-20.1); Calc. Creatinine Clearance 265 mL/min (70-130)
[2021-08-03 05:23] LABS: AST (SGOT) 8 U/L (5-34)
[2021-08-03 05:24] LABS: ALT (SGPT) 18 U/L (8-55); Magnesium 2.3 mg/dL (1.6-2.6)
[2021-08-03] MEDS: Metoclopramide HCl 10 MG/2 ML VIAL IVP SCH ×3 (05:24→22:15)
[2021-08-03] MEDS: Levothyroxine Sodium 50 MCG TAB PO SCH (05:25)
[2021-08-03 05:26] LABS: Phosphorus 4.7 mg/dL (2.3-4.7)
[2021-08-03 05:29] LABS: Anion Gap 15 mmol/L (10-20)
[2021-08-03 05:45] LABS: Band 36 % (5-11); Hemoglobin 8.1 g/dL (12.0-16.0); Lymphocytes 5 % (21-51); MDiff Complete? YES; Mean Corpuscular HGB CONC 30.1 g/dL (32.0-36.0); Mean Corpuscular Hemoglobin 28.7 pg (27.0-31.0); Mean Corpuscular Volume 95.5 fL (78.0-98.0); Mean Platelet Volume 11.2 fL (7.4-10.4); Metamyelocyte 2 % (0-0); Monocytes 2 % (0-10); Neutrophil 55 % (42-75); Platelet Count 74 thou/uL (130-400); RBC Distribution Width 17.3 % (11.5-14.5); Red Blood Cell (RBC) Count 2.83 mill/uL (4.20-5.40); White Blood Cell (WBC) Count 20.2 thou/uL (4.8-10.8)
[2021-08-03] MEDS: Mometasone 100 MCG/Formoterol 5 MCG 120 PUFF INHALER INH SCH ×2 (07:02→18:36)
[2021-08-03] MEDS: Dexamethasone 10 MG/ML VIAL SLOW IVP SCH (08:50)
[2021-08-03] MEDS: Gabapentin 100 MG CAP PO SCH ×2 (08:53→20:00)
[2021-08-03] MEDS: Apixaban 5 MG TAB PO SCH ×2 (08:53→20:00)
[2021-08-03] MEDS: ALPRAZolam 0.5 MG TAB PO SCH ×2 (08:53→20:00)
[2021-08-03] MEDS: Polyethylene Glycol 3350 17 GM Packet PO SCH (08:54)
[2021-08-03] MEDS: Lorazepam 2 MG/ML VIAL SLOW IVP PRN ×4 (11:43→19:10)
[2021-08-03] MEDS: Vancomycin HCl 1.25 GM in Sodium Chloride 0.9% 250 ML 250 ML IVPB SCH (17:43)
[2021-08-03] MEDS: Montelukast Sodium 10 mg Tablet PO SCH (20:00)
[2021-08-04] MEDS: Dexmedetomidine 1,000 MCG in Sodium Chloride 0.9% 250 ML 240 ML IVPB SCH ×3 (01:01→20:47)
[2021-08-04 04:28] LABS: ALT (SGPT) 17 U/L (8-55); AST (SGOT) 7 U/L (5-34); Albumin 1.8 g/dL (3.5-5.0); Alkaline Phosphatase 128 U/L (40-110); Anion Gap 12 mmol/L (10-20); BUN (Urea Nitrogen) 48 mg/dL (9.8-20.1); Bilirubin, Total 0.4 mg/dL (0.2-1.2); Calc. Creatinine Clearance 276 mL/min (70-130); Carbon Dioxide 26 mmol/L (22-29); Chloride 111 mmol/L (98-107); Globulin 2.8 g/dL (2.4-3.5); Glucose 265 mg/dL (70-105); Magnesium 2.3 mg/dL (1.6-2.6); Phosphorus 4.3 mg/dL (2.3-4.7); Potassium 4.9 mmol/L (3.5-5.1); Protein, Total 4.6 g/dL (6.0-8.3); Sodium 144 mmol/L (136-145)
[2021-08-04 05:24] LABS: Anisocytosis SLIGHT = 6-15 cells (100X) (0-5/hpf); Band 25 % (5-11); Hemoglobin 7.5 g/dL (12.0-16.0); Lymphocytes 9 % (21-51); MDiff Complete? YES; Mean Corpuscular HGB CONC 31.9 g/dL (32.0-36.0); Mean Corpuscular Hemoglobin 30.5 pg (27.0-31.0); Mean Corpuscular Volume 95.7 fL (78.0-98.0); Monocytes 1 % (0-10); Myelocyte 1 % (0-0); Neutrophil 63 % (42-75); Platelet Count 66 thou/uL (130-400); Platelet Morphology Comment Appears Decreased; RBC Distribution Width 17.1 % (11.5-14.5); Reactive Lymphocytes 1 % (0-10); Red Blood Cell (RBC) Count 2.46 mill/uL (4.20-5.40); White Blood Cell (WBC) Count 18.8 thou/uL (4.8-10.8)
[2021-08-04] MEDS: Metoclopramide HCl 10 MG/2 ML VIAL IVP SCH ×3 (05:51→21:29)
[2021-08-04] MEDS: Vancomycin HCl 1.25 GM in Sodium Chloride 0.9% 250 ML 250 ML IVPB SCH ×2 (05:51→17:31)
[2021-08-04] MEDS: Levothyroxine Sodium 50 MCG TAB PO SCH (05:52)
[2021-08-04] MEDS: Mometasone 100 MCG/Formoterol 5 MCG 120 PUFF INHALER INH SCH ×2 (07:35→18:11)
[2021-08-04 07:44] LABS: Actual Bicarbonate (HCO3a) 21.9 mEq/L (22-28); Base Excess (BEa) -1.3 mEq/L (-2.0 to +3.0); CO2 Tension 30.9 mmHg (35.0-45.0); Carboxyhemoglobin (COHb) 0.4 gm% (0.0-3.0); Hemoglobin (Hb) 9.1 g/dL (12.0-16.0); O2 Tension (PaO2), arterial 92.9 mmHg (80.0-100.0); Potassium - ABG Lab 4.66 mmol/L (3.70-5.30); pH, Arterial 7.47 (7.35-7.45)
[2021-08-04 07:54] LABS: Puncture Site RRA
[2021-08-04] MEDS ORDERED: Dextrose 50% Abboject 50 ML SYRINGE SLOW IVP PRN (08:23)
[2021-08-04] MEDS ORDERED: Insulin Regular 300 UNITS/3 ML VIAL SC PRN (08:23)
[2021-08-04] MEDS ORDERED: Dextrose 5% in Water 1,000 ML IV PRN (08:23)
[2021-08-04] MEDS: Lorazepam 2 MG/ML VIAL SLOW IVP PRN (08:49)
[2021-08-04] MEDS: Insulin Regular 300 UNITS/3 ML VIAL SC PRN ×3 (09:55→22:17)
[2021-08-04] MEDS: Dexamethasone 10 MG/ML VIAL SLOW IVP SCH (09:57)
[2021-08-04] MEDS: Polyethylene Glycol 3350 17 GM Packet PO SCH (09:57)
[2021-08-04] MEDS: Gabapentin 100 MG CAP PO SCH ×2 (09:57→21:29)
[2021-08-04] MEDS: ALPRAZolam 0.5 MG TAB PO SCH ×2 (10:00→21:45)
[2021-08-04] MEDS: fentaNYL 75 mcg/hour Patch TD SCH (10:00)
[2021-08-04] MEDS: Apixaban 5 MG TAB PO SCH ×2 (10:00→21:29)
[2021-08-04] MEDS ORDERED: Fentanyl 100 MCG/2 ML VIAL SLOW IVP SCH (11:15)
[2021-08-04] MEDS: Fentanyl 100 MCG/2 ML VIAL SLOW IVP PRN (16:31)
[2021-08-04] MEDS: Montelukast Sodium 10 mg Tablet PO SCH (21:29)
[2021-08-04] MEDS ORDERED: ALPRAZolam 1 MG TAB PO SCH (21:30)
[2021-08-05] MEDS: Fentanyl 100 MCG/2 ML VIAL SLOW IVP PRN ×3 (00:40→19:42)
[2021-08-05] MEDS: Dexmedetomidine 1,000 MCG in Sodium Chloride 0.9% 250 ML 240 ML IVPB SCH ×4 (03:51→22:54)
[2021-08-05] MEDS: Insulin Regular 300 UNITS/3 ML VIAL SC PRN ×2 (04:15→09:53)
[2021-08-05 04:30] LABS: ALT (SGPT) 19 U/L (8-55); AST (SGOT) 9 U/L (5-34); Albumin 1.9 g/dL (3.5-5.0); Alkaline Phosphatase 130 U/L (40-110); Anion Gap 16 mmol/L (10-20); BUN (Urea Nitrogen) 50 mg/dL (9.8-20.1); Bilirubin, Total 0.4 mg/dL (0.2-1.2); Calc. Creatinine Clearance 261 mL/min (70-130); Carbon Dioxide 23 mmol/L (22-29); Chloride 114 mmol/L (98-107); Glucose 290 mg/dL (70-105); Magnesium 2.5 mg/dL (1.6-2.6); Phosphorus 4.4 mg/dL (2.3-4.7); Potassium 5.1 mmol/L (3.5-5.1); Protein, Total 4.9 g/dL (6.0-8.3); Sodium 148 mmol/L (136-145)
[2021-08-05 05:06] LABS: Hemoglobin 7.8 g/dL (12.0-16.0); Mean Corpuscular HGB CONC 31.9 g/dL (32.0-36.0); Mean Corpuscular Hemoglobin 30.6 pg (27.0-31.0); Mean Corpuscular Volume 96.2 fL (78.0-98.0); Mean Platelet Volume 11.9 fL (7.4-10.4); Platelet Count 63 thou/uL (130-400); Red Blood Cell (RBC) Count 2.53 mill/uL (4.20-5.40); White Blood Cell (WBC) Count 12.2 thou/uL (4.8-10.8)
[2021-08-05] MEDS: Levothyroxine Sodium 50 MCG TAB PO SCH (05:23)
[2021-08-05] MEDS: Metoclopramide HCl 10 MG/2 ML VIAL IVP SCH ×3 (05:23→21:20)
[2021-08-05 05:25] LABS: Vancomycin, Trough 25.8 ug/mL
[2021-08-05] MEDS: Vancomycin HCl 1.25 GM in Sodium Chloride 0.9% 250 ML 250 ML IVPB SCH (05:37)
[2021-08-05 05:38] LABS: Band 31 % (5-11); Lymphocytes 8 % (21-51); MDiff Complete? YES; Neutrophil 61 % (42-75); Platelet Morphology Comment Appears Decreased
[2021-08-05] MEDS: Mometasone 100 MCG/Formoterol 5 MCG 120 PUFF INHALER INH SCH ×2 (07:52→18:55)
[2021-08-05] MEDS: Dexamethasone 10 MG/ML VIAL SLOW IVP SCH (09:38)
[2021-08-05] MEDS: Gabapentin 100 MG CAP PO SCH ×2 (09:39→21:21)
[2021-08-05] MEDS: Apixaban 5 MG TAB PO SCH ×2 (09:39→21:21)
[2021-08-05] MEDS: ALPRAZolam 1 MG TAB PO SCH ×2 (09:39→21:20)
[2021-08-05] MEDS: Polyethylene Glycol 3350 17 GM Packet PO SCH (09:40)
[2021-08-05 17:49] LABS: Vancomycin, Trough 18.8 ug/mL
[2021-08-05] MEDS: Lorazepam 2 MG/ML VIAL SLOW IVP PRN ×3 (18:23→21:11)
[2021-08-05] MEDS: Montelukast Sodium 10 mg Tablet PO SCH (21:20)
[2021-08-05 21:28] LABS: Actual Bicarbonate (HCO3a) 19.1 mEq/L (22-28); Base Excess (BEa) -3.5 mEq/L (-2.0 to +3.0); Calcium, Ionized (arterial) 1.18 mmol/L (1.12-1.30); Carboxyhemoglobin (COHb) 0.1 gm% (0.0-3.0); Hemoglobin (Hb) 8.3 g/dL (12.0-16.0); O2 Tension (PaO2), arterial 72.5 mmHg (80.0-100.0); Potassium - ABG Lab 5.08 mmol/L (3.70-5.30); pH, Arterial 7.49 (7.35-7.45)
[2021-08-05 21:29] LABS: CO2 Tension 25.7 mmHg (35.0-45.0); Puncture Site LR
[2021-08-05 21:30] LABS: ALV-art Gradient 180.575 mmHg (0-20)
[2021-08-05] MEDS: Norepinephrine 8 MG/0.9% NS 250 ML IVPB SCH (22:28)
[2021-08-06] MEDS: Insulin Regular 300 UNITS/3 ML VIAL SC PRN ×4 (04:08→22:34)
[2021-08-06 05:34] LABS: Vancomycin, Random 18.4 ug/mL (See Comment)
[2021-08-06] MEDS: Metoclopramide HCl 10 MG/2 ML VIAL IVP SCH ×3 (05:49→22:08)
[2021-08-06] MEDS: Levothyroxine Sodium 50 MCG TAB PO SCH (05:49)
[2021-08-06 05:52] LABS: BUN (Urea Nitrogen) 56 mg/dL (9.8-20.1); Calc. Creatinine Clearance 263 mL/min (70-130); Carbon Dioxide 19 mmol/L (22-29); Chloride 113 mmol/L (98-107); Potassium 5.5 mmol/L (3.5-5.1); Sodium 145 mmol/L (136-145)
[2021-08-06 05:53] LABS: Calcium 7.9 mg/dL (7.8-10.44); Glucose 319 mg/dL (70-105)
[2021-08-06] MEDS: Dexmedetomidine 1,000 MCG in Sodium Chloride 0.9% 250 ML 240 ML IVPB SCH ×3 (05:54→22:11)
[2021-08-06 06:25] LABS: Anisocytosis SLIGHT = 6-15 cells (100X) (0-5/hpf); Band 42 % (5-11); Hemoglobin 8.3 g/dL (12.0-16.0); Lymphocytes 5 % (21-51); MDiff Complete? YES; Mean Corpuscular Hemoglobin 29.5 pg (27.0-31.0); Monocytes 1 % (0-10); Myelocyte 1 % (0-0); Neutrophil 51 % (42-75); Platelet Count 102 thou/uL (130-400); Platelet Morphology Comment Appears Decreased; RBC Distribution Width 17.2 % (11.5-14.5); White Blood Cell (WBC) Count 26.8 thou/uL (4.8-10.8)
[2021-08-06 06:38] LABS: Anion Gap 19 mmol/L (10-20)
[2021-08-06] MEDS: Mometasone 100 MCG/Formoterol 5 MCG 120 PUFF INHALER INH SCH ×2 (07:05→19:03)
[2021-08-06] MEDS: ALPRAZolam 1 MG TAB PO SCH ×2 (08:50→20:00)
[2021-08-06] MEDS: Dexamethasone 10 MG/ML VIAL SLOW IVP SCH (08:51)
[2021-08-06] MEDS: Apixaban 5 MG TAB PO SCH ×2 (08:51→20:00)
[2021-08-06] MEDS: Polyethylene Glycol 3350 17 GM Packet PO SCH (08:51)
[2021-08-06] MEDS: Gabapentin 100 MG CAP PO SCH ×2 (08:51→20:00)
[2021-08-06] MEDS: Vancomycin 1 GM in Premix Bag 1 BAG IVPB SCH ×2 (10:10→20:00)
[2021-08-06] MEDS: Norepinephrine 8 MG/0.9% NS 250 ML IVPB SCH (10:18)
[2021-08-06] MEDS: Cefepime 2 GM in Sodium Chloride 0.9% 100 ML IVPB SCH ×2 (13:30→19:47)
[2021-08-06] MEDS: Lorazepam 2 MG/ML VIAL SLOW IVP PRN ×3 (13:34→22:09)
[2021-08-06] MEDS: Morphine 4 MG/ML VIAL SLOW IVP PRN (16:29)
[2021-08-06] MEDS: Fentanyl 100 MCG/2 ML VIAL SLOW IVP PRN (16:56)
[2021-08-06] MEDS: Montelukast Sodium 10 mg Tablet PO SCH (20:00)
[2021-08-07] MEDS: Cefepime 2 GM in Sodium Chloride 0.9% 100 ML IVPB SCH ×3 (04:12→19:45)
[2021-08-07] MEDS: Insulin Regular 300 UNITS/3 ML VIAL SC PRN ×4 (04:21→22:11)
[2021-08-07 05:09] LABS: Hemoglobin 7.6 g/dL (12.0-16.0); Mean Corpuscular HGB CONC 30.7 g/dL (32.0-36.0); Mean Corpuscular Hemoglobin 29.2 pg (27.0-31.0); Mean Corpuscular Volume 95.3 fL (78.0-98.0); Mean Platelet Volume 12.2 fL (7.4-10.4); Platelet Count 89 thou/uL (130-400); RBC Distribution Width 17.2 % (11.5-14.5); Red Blood Cell (RBC) Count 2.61 mill/uL (4.20-5.40); White Blood Cell (WBC) Count 18.4 thou/uL (4.8-10.8)
[2021-08-07] MEDS: Levothyroxine Sodium 50 MCG TAB PO SCH (05:16)
[2021-08-07] MEDS: Metoclopramide HCl 10 MG/2 ML VIAL IVP SCH ×3 (05:16→22:15)
[2021-08-07 05:20] LABS: Anion Gap 16 mmol/L (10-20); BUN (Urea Nitrogen) 59 mg/dL (9.8-20.1); Calc. Creatinine Clearance 263 mL/min (70-130); Calcium 7.9 mg/dL (7.8-10.44); Carbon Dioxide 21 mmol/L (22-29); Chloride 114 mmol/L (98-107); Glucose 288 mg/dL (70-105); Potassium 5.2 mmol/L (3.5-5.1); Sodium 146 mmol/L (136-145)
[2021-08-07 05:40] LABS: Band 36 % (5-11); Dohle Bodies SLIGHT; Lymphocytes 9 % (21-51); MDiff Complete? YES; Monocytes 1 % (0-10); Neutrophil 54 % (42-75); Toxic Granulation SLIGHT
[2021-08-07] MEDS: Dexmedetomidine 1,000 MCG in Sodium Chloride 0.9% 250 ML 240 ML IVPB SCH ×2 (06:31→17:26)
[2021-08-07] MEDS: Mometasone 100 MCG/Formoterol 5 MCG 120 PUFF INHALER INH SCH ×2 (07:56→18:18)
[2021-08-07] MEDS: fentaNYL 75 mcg/hour Patch TD SCH (09:25)
[2021-08-07] MEDS: Vancomycin 1 GM in Premix Bag 1 BAG IVPB SCH ×2 (09:32→20:39)
[2021-08-07] MEDS: Dexamethasone 10 MG/ML VIAL SLOW IVP SCH (09:32)
[2021-08-07] MEDS: Apixaban 5 MG TAB PO SCH ×2 (09:32→20:40)
[2021-08-07] MEDS: ALPRAZolam 1 MG TAB PO SCH ×2 (09:33→20:40)
[2021-08-07] MEDS: Gabapentin 100 MG CAP PO SCH ×2 (09:33→20:40)
[2021-08-07] MEDS: NPH, Human Insulin Isophane 300 UNIT/3 ML VIAL SC SCH ×2 (10:23→20:42)
[2021-08-07] MEDS: Polyethylene Glycol 3350 17 GM Packet PO SCH (10:32)
[2021-08-07] MEDS ORDERED: Sodium Chloride 0.9% 500 ML IV SCH ×2 (19:45)
[2021-08-07] MEDS: Montelukast Sodium 10 mg Tablet PO SCH (20:40)
[2021-08-07 20:49] LABS: Vancomycin, Trough 27.5 ug/mL
[2021-08-08] MEDS: Dexmedetomidine 1,000 MCG in Sodium Chloride 0.9% 250 ML 240 ML IVPB SCH ×4 (04:33→22:09)
[2021-08-08] MEDS: Cefepime 2 GM in Sodium Chloride 0.9% 100 ML IVPB SCH ×3 (04:33→19:39)
[2021-08-08] MEDS: Insulin Regular 300 UNITS/3 ML VIAL SC PRN ×4 (04:34→22:08)
[2021-08-08 04:52] LABS: Anion Gap 16 mmol/L (10-20); BUN (Urea Nitrogen) 55 mg/dL (9.8-20.1); Calc. Creatinine Clearance 288 mL/min (70-130); Calcium 8.2 mg/dL (7.8-10.44); Carbon Dioxide 21 mmol/L (22-29); Chloride 113 mmol/L (98-107); Glucose 275 mg/dL (70-105); Potassium 4.7 mmol/L (3.5-5.1); Sodium 145 mmol/L (136-145)
[2021-08-08 05:14] LABS: Band 26 % (5-11); Dohle Bodies SLIGHT; Hemoglobin 7.4 g/dL (12.0-16.0); Hypochromia SLIGHT = 6-15 cells (100X) (0-5/hpf); Lymphocytes 7 % (21-51); MDiff Complete? YES; Mean Corpuscular HGB CONC 30.6 g/dL (32.0-36.0); Mean Corpuscular Hemoglobin 29.2 pg (27.0-31.0); Mean Corpuscular Volume 95.6 fL (78.0-98.0); Metamyelocyte 1 % (0-0); Monocytes 4 % (0-10); Myelocyte 1 % (0-0); Neutrophil 61 % (42-75); Nucleated RBC 1 % (0); Platelet Count 85 thou/uL (130-400); Platelet Morphology Comment Appears Decreased; RBC Distribution Width 17.1 % (11.5-14.5); Red Blood Cell (RBC) Count 2.52 mill/uL (4.20-5.40); Rouleaux Formation MODERATE= 6-15 cells (100X) (None Seen); White Blood Cell (WBC) Count 13.3 thou/uL (4.8-10.8)
[2021-08-08] MEDS: Levothyroxine Sodium 50 MCG TAB PO SCH (05:20)
[2021-08-08] MEDS: Metoclopramide HCl 10 MG/2 ML VIAL IVP SCH ×3 (05:20→22:15)
[2021-08-08] MEDS: Mometasone 100 MCG/Formoterol 5 MCG 120 PUFF INHALER INH SCH ×2 (07:35→18:03)
[2021-08-08] MEDS: Gabapentin 100 MG CAP PO SCH ×2 (09:18→20:27)
[2021-08-08] MEDS: Polyethylene Glycol 3350 17 GM Packet PO SCH (09:18)
[2021-08-08] MEDS: Apixaban 5 MG TAB PO SCH ×2 (09:18→20:27)
[2021-08-08] MEDS: Dexamethasone 10 MG/ML VIAL SLOW IVP SCH (09:19)
[2021-08-08] MEDS: NPH, Human Insulin Isophane 300 UNIT/3 ML VIAL SC SCH ×2 (09:19→20:28)
[2021-08-08] MEDS: ALPRAZolam 1 MG TAB PO SCH ×2 (09:19→20:27)
[2021-08-08] MEDS: Montelukast Sodium 10 mg Tablet PO SCH (20:27)
[2021-08-09] MEDS: Cefepime 2 GM in Sodium Chloride 0.9% 100 ML IVPB SCH ×3 (03:11→19:30)
[2021-08-09] MEDS: Insulin Regular 300 UNITS/3 ML VIAL SC PRN ×4 (03:38→22:51)
[2021-08-09 05:01] LABS: Anion Gap 16 mmol/L (10-20); BUN (Urea Nitrogen) 56 mg/dL (9.8-20.1); Calc. Creatinine Clearance 309 mL/min (70-130); Calcium 8.4 mg/dL (7.8-10.44); Carbon Dioxide 20 mmol/L (22-29); Chloride 116 mmol/L (98-107); Glucose 227 mg/dL (70-105); Potassium 4.7 mmol/L (3.5-5.1); Sodium 147 mmol/L (136-145)
[2021-08-09 05:05] LABS: Vancomycin, Random 18.7 ug/mL (See Comment)
[2021-08-09 05:06] LABS: Band 37 % (5-11); Hemoglobin 7.4 g/dL (12.0-16.0); Lymphocytes 7 % (21-51); MDiff Complete? YES; Mean Corpuscular HGB CONC 31.5 g/dL (32.0-36.0); Mean Corpuscular Hemoglobin 29.9 pg (27.0-31.0); Mean Corpuscular Volume 95.2 fL (78.0-98.0); Mean Platelet Volume 12.4 fL (7.4-10.4); Metamyelocyte 2 % (0-0); Monocytes 3 % (0-10); Neutrophil 51 % (42-75); Platelet Count 99 thou/uL (130-400); Platelet Morphology Comment Appears Decreased; RBC Distribution Width 17.4 % (11.5-14.5); Red Blood Cell (RBC) Count 2.46 mill/uL (4.20-5.40); White Blood Cell (WBC) Count 9.7 thou/uL (4.8-10.8)
[2021-08-09] MEDS: Morphine 4 MG/ML VIAL SLOW IVP PRN (05:19)
[2021-08-09] MEDS: Levothyroxine Sodium 50 MCG TAB PO SCH (05:24)
[2021-08-09] MEDS: Metoclopramide HCl 10 MG/2 ML VIAL IVP SCH ×3 (05:25→22:30)
[2021-08-09] MEDS: Vancomycin HCl 1.25 GM in Sodium Chloride 0.9% 250 ML 250 ML IVPB SCH (05:27)
[2021-08-09] MEDS ORDERED: Vancomycin 1 GM in Premix Bag 1 BAG IVPB SCH (06:00)
[2021-08-09] MEDS: Lorazepam 2 MG/ML VIAL SLOW IVP PRN ×3 (06:30→16:04)
[2021-08-09] MEDS: Mometasone 100 MCG/Formoterol 5 MCG 120 PUFF INHALER INH SCH ×2 (07:49→19:27)
[2021-08-09] MEDS: Dexamethasone 10 MG/ML VIAL SLOW IVP SCH (08:52)
[2021-08-09] MEDS: Polyethylene Glycol 3350 17 GM Packet PO SCH (08:52)
[2021-08-09] MEDS: Gabapentin 100 MG CAP PO SCH ×2 (08:52→19:28)
[2021-08-09] MEDS: Apixaban 5 MG TAB PO SCH (08:56)
[2021-08-09] MEDS: ALPRAZolam 1 MG TAB PO SCH ×2 (08:56→19:28)
[2021-08-09] MEDS: NPH, Human Insulin Isophane 300 UNIT/3 ML VIAL SC SCH ×2 (09:04→21:01)
[2021-08-09] MEDS ORDERED: GASTROGRAFIN 30 ML BOT ONE (10:44)
[2021-08-09] MEDS: Dexmedetomidine 1,000 MCG in Sodium Chloride 0.9% 250 ML 240 ML IVPB SCH ×2 (12:42→23:35)
[2021-08-09] MEDS ORDERED: MEROPENEM 1 GM/50 ML 1 GM in Premix Bag 1 BAG IVPB SCH (16:15)
[2021-08-09] MEDS: Fentanyl 100 MCG/2 ML VIAL SLOW IVP PRN (16:56)
[2021-08-09] MEDS ORDERED: Norepinephrine 8 MG/0.9% NS 250 ML ONE (17:08)
[2021-08-09] MEDS: Montelukast Sodium 10 mg Tablet PO SCH (19:28)
[2021-08-09] MEDS: Amiodarone 450 MG, Admixture Fee 1 EACH in Dextrose 5% in Water 250 ML IVPB SCH (19:29)
[2021-08-09] MEDS: Phenylephrine 40 MG/NS 250 ML 40 MG in Premix Bag 1 BAG IVPB SCH (19:37)
[2021-08-09] MEDS ORDERED: Meropenem 2 GM in Admixture Fee 1 EACH IVPB SCH (22:00)
[2021-08-09] MEDS: MEROPENEM 1 GM/50 ML 1 GM in Premix Bag 1 BAG IVPB SCH (23:35)
[2021-08-10] MEDS: Phenylephrine 40 MG/NS 250 ML 40 MG in Premix Bag 1 BAG IVPB SCH (02:01)
[2021-08-10] MEDS: Cefepime 2 GM in Sodium Chloride 0.9% 100 ML IVPB SCH ×3 (03:34→20:01)
[2021-08-10] MEDS: Insulin Regular 300 UNITS/3 ML VIAL SC PRN ×4 (03:38→21:31)
[2021-08-10] MEDS: Metoclopramide HCl 10 MG/2 ML VIAL IVP SCH ×3 (05:33→21:11)
[2021-08-10] MEDS: Levothyroxine Sodium 50 MCG TAB PO SCH (05:34)
[2021-08-10] MEDS: Amiodarone 450 MG, Admixture Fee 1 EACH in Dextrose 5% in Water 250 ML IVPB SCH ×2 (05:42→21:11)
[2021-08-10] MEDS: Vancomycin HCl 1.25 GM in Sodium Chloride 0.9% 250 ML 250 ML IVPB SCH (05:44)
[2021-08-10] MEDS: Mometasone 100 MCG/Formoterol 5 MCG 120 PUFF INHALER INH SCH ×2 (07:08→19:02)
[2021-08-10] MEDS: MEROPENEM 1 GM/50 ML 1 GM in Premix Bag 1 BAG IVPB SCH ×2 (07:43→16:16)
[2021-08-10] MEDS: ALPRAZolam 1 MG TAB PO SCH ×2 (09:12→21:09)
[2021-08-10] MEDS: Gabapentin 100 MG CAP PO SCH ×2 (09:12→21:09)
[2021-08-10] MEDS: Polyethylene Glycol 3350 17 GM Packet PO SCH (09:13)
[2021-08-10] MEDS: Dexamethasone 10 MG/ML VIAL SLOW IVP SCH (09:13)
[2021-08-10] MEDS: NPH, Human Insulin Isophane 300 UNIT/3 ML VIAL SC SCH ×2 (09:14→21:30)
[2021-08-10] MEDS: fentaNYL 75 mcg/hour Patch TD SCH (09:19)
[2021-08-10] MEDS: Dexmedetomidine 1,000 MCG in Sodium Chloride 0.9% 250 ML 240 ML IVPB SCH (11:03)
[2021-08-10] MEDS ORDERED: Midazolam HCl 5 mg/5 ml Vial ONE (11:31)
[2021-08-10] MEDS ORDERED: HYDROmorphone 2 MG/ML VIAL ONE (11:31)
[2021-08-10] MEDS ORDERED: Fentanyl 250 MCG/5 ML VIAL ONE (11:31)
[2021-08-10] MEDS ORDERED: Glycopyrrolate 0.2 MG/ML 5 ML SYRINGE ONE (11:48)
[2021-08-10] MEDS ORDERED: PHENYLEPHRINE-NS 100 MCG/ML 10 ML SYRINGE ONE ×2 (11:48)
[2021-08-10] MEDS ORDERED: Ondansetron PF 4 MG/2 ML Vial ONE (11:48)
[2021-08-10] MEDS ORDERED: ePHEDrine 50 MG/ML VIAL ONE (11:48)
[2021-08-10] MEDS ORDERED: Dexamethasone 20 MG/5 ML VIAL ONE (11:48)
[2021-08-10] MEDS ORDERED: HYDROmorphone 2 MG/ML VIAL SLOW IVP PRN (12:43)
[2021-08-10] MEDS ORDERED: Ondansetron HCl/PF 4 MG/2 ML Vial IVP PRN (12:43)
[2021-08-10] MEDS ORDERED: Promethazine HCl 25 MG/ML VIAL IVPB PRN (12:43)
[2021-08-10] MEDS: Montelukast Sodium 10 mg Tablet PO SCH (21:10)
[2021-08-10] MEDS: Lorazepam 2 MG/ML VIAL SLOW IVP PRN ×2 (22:16→23:55)
[2021-08-11] MEDS: Cefepime 2 GM in Sodium Chloride 0.9% 100 ML IVPB SCH (04:22)
[2021-08-11] MEDS: MEROPENEM 1 GM/50 ML 1 GM in Premix Bag 1 BAG IVPB SCH ×3 (04:30→20:04)
[2021-08-11 05:10] LABS: Anion Gap 14 mmol/L (10-20); BUN (Urea Nitrogen) 51 mg/dL (9.8-20.1); Calc. Creatinine Clearance 332 mL/min (70-130); Calcium 7.9 mg/dL (7.8-10.44); Carbon Dioxide 19 mmol/L (22-29); Chloride 119 mmol/L (98-107); Glucose 167 mg/dL (70-105); Potassium 4.2 mmol/L (3.5-5.1); Sodium 148 mmol/L (136-145)
[2021-08-11 05:21] LABS: Band 21 % (5-11); Hemoglobin 6.4 g/dL (12.0-16.0); Hypochromia SLIGHT = 6-15 cells (100X) (0-5/hpf); Lymphocytes 12 % (21-51); MDiff Complete? YES; Mean Corpuscular HGB CONC 31.6 g/dL (32.0-36.0); Mean Corpuscular Hemoglobin 30.2 pg (27.0-31.0); Mean Corpuscular Volume 95.7 fL (78.0-98.0); Mean Platelet Volume 12.6 fL (7.4-10.4); Monocytes 3 % (0-10); Neutrophil 64 % (42-75); Platelet Count 120 thou/uL (130-400); Platelet Morphology Comment Appears Decreased; Polychromasia SLIGHT = 2-3 cells (100X) (0-2/hpf); RBC Distribution Width 17.6 % (11.5-14.5); Target Cells SLIGHT = 2-5 cells (100X) (0-1/hpf); White Blood Cell (WBC) Count 13.5 thou/uL (4.8-10.8)
[2021-08-11 05:58] LABS: Vancomycin, Trough 18.9 ug/mL
[2021-08-11] MEDS: Metoclopramide HCl 10 MG/2 ML VIAL IVP SCH ×3 (06:38→21:41)
[2021-08-11] MEDS: Levothyroxine Sodium 50 MCG TAB PO SCH (06:40)
[2021-08-11] MEDS: Mometasone 100 MCG/Formoterol 5 MCG 120 PUFF INHALER INH SCH ×2 (07:39→19:11)
[2021-08-11] MEDS: Vancomycin HCl 1.25 GM in Sodium Chloride 0.9% 250 ML 250 ML IVPB SCH (08:03)
[2021-08-11] MEDS: NPH, Human Insulin Isophane 300 UNIT/3 ML VIAL SC SCH ×3 (09:00→21:32)
[2021-08-11] MEDS: Gabapentin 100 MG CAP PO SCH ×2 (10:20→20:19)
[2021-08-11] MEDS: Polyethylene Glycol 3350 17 GM Packet PO SCH (10:20)
[2021-08-11] MEDS: ALPRAZolam 1 MG TAB PO SCH ×2 (10:21→20:19)
[2021-08-11] MEDS: Dexamethasone 10 MG/ML VIAL SLOW IVP SCH (10:21)
[2021-08-11] MEDS ORDERED: Amiodarone 200 MG TAB PO SCH (14:00)
[2021-08-11] MEDS: Dexmedetomidine 1,000 MCG in Sodium Chloride 0.9% 250 ML 240 ML IVPB SCH (20:04)
[2021-08-11] MEDS: Amiodarone 200 MG TAB PO SCH (20:20)
[2021-08-11] MEDS: Montelukast Sodium 10 mg Tablet PO SCH (20:20)
[2021-08-12] MEDS: Lorazepam 2 MG/ML VIAL SLOW IVP PRN (00:33)
[2021-08-12] MEDS: MEROPENEM 1 GM/50 ML 1 GM in Premix Bag 1 BAG IVPB SCH ×3 (04:36→20:18)
[2021-08-12] MEDS ORDERED: Sterile Water 10 ML VIAL IVP SCH (05:30)
[2021-08-12] MEDS ORDERED: Activase 2 MG VIAL CATH SCH (05:30)
[2021-08-12 05:38] LABS: ALT (SGPT) 30 U/L (8-55); AST (SGOT) 14 U/L (5-34); Albumin 1.7 g/dL (3.5-5.0); Alkaline Phosphatase 102 U/L (40-110); Anion Gap 12 mmol/L (10-20); BUN (Urea Nitrogen) 45 mg/dL (9.8-20.1); Bilirubin, Total 0.6 mg/dL (0.2-1.2); Calc. Creatinine Clearance 345 mL/min (70-130); Calcium 7.8 mg/dL (7.8-10.44); Carbon Dioxide 19 mmol/L (22-29); Chloride 122 mmol/L (98-107); Globulin 3.1 g/dL (2.4-3.5); Glucose 147 mg/dL (70-105); Protein, Total 4.8 g/dL (6.0-8.3); Sodium 149 mmol/L (136-145)
[2021-08-12 05:53] LABS: Anisocytosis SLIGHT = 6-15 cells (100X) (0-5/hpf); Band 10 % (5-11); Hemoglobin 8.3 g/dL (12.0-16.0); Hypochromia SLIGHT = 6-15 cells (100X) (0-5/hpf); Lymphocytes 15 % (21-51); MDiff Complete? YES; Mean Corpuscular HGB CONC 31.8 g/dL (32.0-36.0); Mean Corpuscular Hemoglobin 28.6 pg (27.0-31.0); Mean Corpuscular Volume 89.9 fL (78.0-98.0); Mean Platelet Volume 12.4 fL (7.4-10.4); Monocytes 4 % (0-10); Myelocyte 3 % (0-0); Neutrophil 68 % (42-75); Nucleated RBC 1 % (0); Platelet Count 137 thou/uL (130-400); Platelet Morphology Comment Appears Decreased; RBC Distribution Width 18.9 % (11.5-14.5); Red Blood Cell (RBC) Count 2.91 mill/uL (4.20-5.40); Rouleaux Formation MODERATE= 6-15 cells (100X) (None Seen)
[2021-08-12] MEDS: Levothyroxine Sodium 50 MCG TAB PO SCH (06:14)
[2021-08-12] MEDS: Metoclopramide HCl 10 MG/2 ML VIAL IVP SCH ×3 (06:14→21:30)
[2021-08-12] MEDS: Vancomycin HCl 1.25 GM in Sodium Chloride 0.9% 250 ML 250 ML IVPB SCH (06:50)
[2021-08-12] MEDS: Mometasone 100 MCG/Formoterol 5 MCG 120 PUFF INHALER INH SCH ×2 (07:50→18:03)
[2021-08-12] MEDS: Fentanyl 100 MCG/2 ML VIAL SLOW IVP PRN ×2 (09:33→18:03)
[2021-08-12] MEDS: Amiodarone 200 MG TAB PO SCH ×2 (09:35→21:28)
[2021-08-12] MEDS: ALPRAZolam 1 MG TAB PO SCH ×2 (09:35→21:27)
[2021-08-12] MEDS: Pantoprazole 40 MG GRANULES PACKET FS SCH (09:35)
[2021-08-12] MEDS: Gabapentin 100 MG CAP PO SCH ×2 (09:35→21:27)
[2021-08-12] MEDS: Polyethylene Glycol 3350 17 GM Packet PO SCH (09:35)
[2021-08-12] MEDS: NPH, Human Insulin Isophane 300 UNIT/3 ML VIAL SC SCH ×2 (09:36→21:30)
[2021-08-12] MEDS: Dexamethasone 10 MG/ML VIAL SLOW IVP SCH (09:36)
[2021-08-12] MEDS: Nystatin 100,000 Units/mL UDCUP SSW SCH ×3 (13:57→21:30)
[2021-08-12] MEDS: Insulin Regular 300 UNITS/3 ML VIAL SC PRN (17:04)
[2021-08-12] MEDS: Dexmedetomidine 1,000 MCG in Sodium Chloride 0.9% 250 ML 240 ML IVPB SCH (17:43)
[2021-08-12] MEDS: Montelukast Sodium 10 mg Tablet PO SCH (21:27)
[2021-08-13] MEDS: Dexmedetomidine 1,000 MCG in Sodium Chloride 0.9% 250 ML 240 ML IVPB SCH ×2 (03:34→20:30)
[2021-08-13] MEDS: MEROPENEM 1 GM/50 ML 1 GM in Premix Bag 1 BAG IVPB SCH ×3 (03:35→20:30)
[2021-08-13] MEDS: Insulin Regular 300 UNITS/3 ML VIAL SC PRN ×3 (03:51→16:20)
[2021-08-13 04:49] LABS: ALT (SGPT) 31 U/L (8-55); AST (SGOT) 12 U/L (5-34); Albumin 1.7 g/dL (3.5-5.0); Alkaline Phosphatase 108 U/L (40-110); Anion Gap 13 mmol/L (10-20); BUN (Urea Nitrogen) 44 mg/dL (9.8-20.1); Band 13 % (5-11); Bilirubin, Total 0.3 mg/dL (0.2-1.2); Calc. Creatinine Clearance 345 mL/min (70-130); Calcium 7.9 mg/dL (7.8-10.44); Carbon Dioxide 19 mmol/L (22-29); Chloride 120 mmol/L (98-107); Glucose 212 mg/dL (70-105); Hemoglobin 8.4 g/dL (12.0-16.0); Hypochromia SLIGHT = 6-15 cells (100X) (0-5/hpf); Lymphocytes 9 % (21-51); MDiff Complete? YES; Mean Corpuscular HGB CONC 32.1 g/dL (32.0-36.0); Mean Corpuscular Hemoglobin 28.7 pg (27.0-31.0); Mean Corpuscular Volume 89.5 fL (78.0-98.0); Monocytes 7 % (0-10); Neutrophil 71 % (42-75); Platelet Count 145 thou/uL (130-400); Platelet Morphology Comment Appears Adequate; Potassium 3.6 mmol/L (3.5-5.1); Protein, Total 4.7 g/dL (6.0-8.3); RBC Distribution Width 19.2 % (11.5-14.5); Red Blood Cell (RBC) Count 2.91 mill/uL (4.20-5.40); Sodium 148 mmol/L (136-145)
[2021-08-13] MEDS: Metoclopramide HCl 10 MG/2 ML VIAL IVP SCH ×3 (06:24→21:06)
[2021-08-13] MEDS: Levothyroxine Sodium 50 MCG TAB PO SCH (06:25)
[2021-08-13] MEDS: Mometasone 100 MCG/Formoterol 5 MCG 120 PUFF INHALER INH SCH ×2 (07:06→18:11)
[2021-08-13 07:10] LABS: Vancomycin, Trough 18.8 ug/mL
[2021-08-13] MEDS: Vancomycin HCl 1.25 GM in Sodium Chloride 0.9% 250 ML 250 ML IVPB SCH (07:26)
[2021-08-13] MEDS: Dexamethasone 10 MG/ML VIAL SLOW IVP SCH (08:58)
[2021-08-13] MEDS: ALPRAZolam 1 MG TAB PO SCH ×2 (08:58→21:05)
[2021-08-13] MEDS: Amiodarone 200 MG TAB PO SCH ×2 (08:58→21:06)
[2021-08-13] MEDS: fentaNYL 75 mcg/hour Patch TD SCH (08:59)
[2021-08-13] MEDS: Gabapentin 100 MG CAP PO SCH ×2 (09:00→21:05)
[2021-08-13] MEDS: Pantoprazole 40 MG GRANULES PACKET FS SCH (09:01)
[2021-08-13] MEDS: Nystatin 500,000 UNITS/5 ML UDCUP SSW SCH ×4 (09:01→21:06)
[2021-08-13] MEDS: Polyethylene Glycol 3350 17 GM Packet PO SCH (09:01)
[2021-08-13] MEDS: NPH, Human Insulin Isophane 300 UNIT/3 ML VIAL SC SCH ×2 (09:07→21:29)
[2021-08-13] MEDS: Fentanyl 100 MCG/2 ML VIAL SLOW IVP PRN (15:05)
[2021-08-13] MEDS: hydrALAZINE 20 MG/ML VIAL SLOW IVP PRN (16:20)
[2021-08-13] MEDS: Montelukast Sodium 10 mg Tablet PO SCH (21:05)
[2021-08-14] MEDS: MEROPENEM 1 GM/50 ML 1 GM in Premix Bag 1 BAG IVPB SCH ×2 (03:58→11:33)
[2021-08-14 04:37] LABS: Anion Gap 9 mmol/L (10-20); BUN (Urea Nitrogen) 43 mg/dL (9.8-20.1); Calc. Creatinine Clearance 397 mL/min (70-130); Carbon Dioxide 21 mmol/L (22-29); Chloride 122 mmol/L (98-107); Glucose 126 mg/dL (70-105); Potassium 3.2 mmol/L (3.5-5.1); Sodium 149 mmol/L (136-145)
[2021-08-14 04:40] LABS: Hemoglobin 8.4 g/dL (12.0-16.0); Mean Corpuscular Hemoglobin 28.8 pg (27.0-31.0); Mean Corpuscular Volume 90.1 fL (78.0-98.0); Mean Platelet Volume 11.9 fL (7.4-10.4); Platelet Count 149 thou/uL (130-400); RBC Distribution Width 18.8 % (11.5-14.5); Red Blood Cell (RBC) Count 2.92 mill/uL (4.20-5.40); White Blood Cell (WBC) Count 9.3 thou/uL (4.8-10.8)
[2021-08-14] MEDS ORDERED: Potassium Chloride 40 MEQ in Premix Bag 1 BAG IVPB SCH (05:00)
[2021-08-14] MEDS: Levothyroxine Sodium 50 MCG TAB PO SCH (05:16)
[2021-08-14] MEDS: Metoclopramide HCl 10 MG/2 ML VIAL IVP SCH ×3 (05:16→21:45)
[2021-08-14] MEDS: Vancomycin HCl 1.25 GM in Sodium Chloride 0.9% 250 ML 250 ML IVPB SCH (05:24)
[2021-08-14 05:45] LABS: Anisocytosis MODERATE=16-30 cells (100X) (0-5/hpf); Band 8 % (5-11); Hypochromia SLIGHT = 6-15 cells (100X) (0-5/hpf); Lymphocytes 13 % (21-51); MDiff Complete? YES; Metamyelocyte 6 % (0-0); Monocytes 4 % (0-10); Myelocyte 4 % (0-0); Neutrophil 64 % (42-75); Nucleated RBC 1 % (0); Platelet Morphology Comment Appears Adequate; Reactive Lymphocytes 1 % (0-10)
[2021-08-14] MEDS: Dexmedetomidine 1,000 MCG in Sodium Chloride 0.9% 250 ML 240 ML IVPB SCH ×2 (06:23→17:21)
[2021-08-14] MEDS: Mometasone 100 MCG/Formoterol 5 MCG 120 PUFF INHALER INH SCH ×2 (07:07→17:54)
[2021-08-14] MEDS: Dexamethasone 10 MG/ML VIAL SLOW IVP SCH (09:28)
[2021-08-14] MEDS: ALPRAZolam 1 MG TAB PO SCH ×2 (09:28→21:45)
[2021-08-14] MEDS: Gabapentin 100 MG CAP PO SCH ×2 (09:29→21:46)
[2021-08-14] MEDS: Pantoprazole 40 MG GRANULES PACKET FS SCH (09:30)
[2021-08-14] MEDS: Amiodarone 200 MG TAB PO SCH ×2 (09:30→21:45)
[2021-08-14] MEDS: Polyethylene Glycol 3350 17 GM Packet PO SCH (09:31)
[2021-08-14] MEDS: Nystatin 500,000 UNITS/5 ML UDCUP SSW SCH ×4 (09:35→21:45)
[2021-08-14] MEDS: NPH, Human Insulin Isophane 300 UNIT/3 ML VIAL SC SCH ×2 (09:41→21:50)
[2021-08-14] MEDS: Meropenem 1 GM in Sodium Chloride 0.9% 100 ML IVPB SCH (20:36)
[2021-08-14] MEDS: Montelukast Sodium 10 mg Tablet PO SCH (21:46)
[2021-08-15] MEDS: Dexmedetomidine 1,000 MCG in Sodium Chloride 0.9% 250 ML 240 ML IVPB SCH (03:52)
[2021-08-15] MEDS: Meropenem 1 GM in Sodium Chloride 0.9% 100 ML IVPB SCH ×2 (03:52→12:30)
[2021-08-15 05:36] LABS: Hemoglobin 9.5 g/dL (12.0-16.0); Mean Corpuscular HGB CONC 31.9 g/dL (32.0-36.0); Mean Corpuscular Hemoglobin 29.2 pg (27.0-31.0); Mean Corpuscular Volume 91.4 fL (78.0-98.0); Mean Platelet Volume 11.8 fL (7.4-10.4); Platelet Count 145 thou/uL (130-400); RBC Distribution Width 19.4 % (11.5-14.5); Red Blood Cell (RBC) Count 3.26 mill/uL (4.20-5.40); White Blood Cell (WBC) Count 8.8 thou/uL (4.8-10.8)
[2021-08-15] MEDS: Levothyroxine Sodium 50 MCG TAB PO SCH (06:07)
[2021-08-15] MEDS: Metoclopramide HCl 10 MG/2 ML VIAL IVP SCH ×3 (06:07→22:42)
[2021-08-15 06:41] LABS: Anion Gap 11 mmol/L (10-20); BUN (Urea Nitrogen) 37 mg/dL (9.8-20.1); Calc. Creatinine Clearance 419 mL/min (70-130); Carbon Dioxide 18 mmol/L (22-29); Chloride 123 mmol/L (98-107); Glucose 120 mg/dL (70-105); Potassium 3.3 mmol/L (3.5-5.1); Sodium 149 mmol/L (136-145)
[2021-08-15 06:52] LABS: Band 31 % (5-11); Lymphocytes 19 % (21-51); MDiff Complete? YES; Neutrophil 50 % (42-75)
[2021-08-15] MEDS: Nystatin 500,000 UNITS/5 ML UDCUP SSW SCH ×4 (09:16→22:42)
[2021-08-15] MEDS: Gabapentin 100 MG CAP PO SCH ×2 (09:17→22:40)
[2021-08-15] MEDS: Pantoprazole 40 MG GRANULES PACKET FS SCH (09:17)
[2021-08-15] MEDS: Polyethylene Glycol 3350 17 GM Packet PO SCH (09:17)
[2021-08-15] MEDS: Amiodarone 200 MG TAB PO SCH ×2 (09:18→22:41)
[2021-08-15] MEDS: ALPRAZolam 1 MG TAB PO SCH ×2 (09:18→22:41)
[2021-08-15] MEDS: Dexamethasone 4 mg/ml Vial SLOW IVP SCH (09:18)
[2021-08-15] MEDS: Potassium Chloride 20 MEQ in Premix Bag 1 BAG IVPB SCH ×2 (09:19→13:11)
[2021-08-15] MEDS: NPH, Human Insulin Isophane 300 UNIT/3 ML VIAL SC SCH ×2 (09:52→22:53)
[2021-08-15] MEDS: Mometasone 100 MCG/Formoterol 5 MCG 120 PUFF INHALER INH SCH ×2 (11:01→17:53)
[2021-08-15 18:46] LABS: Potassium 3.9 mmol/L (3.5-5.1)
[2021-08-15] MEDS: Dexamethasone 10 MG/ML VIAL SLOW IVP SCH (20:06)
[2021-08-15] MEDS: MEROPENEM 1 GM/50 ML 1 GM in Premix Bag 1 BAG IVPB SCH (20:43)
[2021-08-15] MEDS: Montelukast Sodium 10 mg Tablet PO SCH (22:52)
[2021-08-16] MEDS: Lorazepam 2 MG/ML VIAL SLOW IVP PRN ×3 (01:21→18:34)
[2021-08-16] MEDS: MEROPENEM 1 GM/50 ML 1 GM in Premix Bag 1 BAG IVPB SCH ×3 (03:38→20:46)
[2021-08-16 04:12] LABS: Hemoglobin 9.1 g/dL (12.0-16.0); Mean Corpuscular HGB CONC 33.5 g/dL (32.0-36.0); Mean Corpuscular Hemoglobin 30.1 pg (27.0-31.0); Mean Corpuscular Volume 89.9 fL (78.0-98.0); Mean Platelet Volume 11.5 fL (7.4-10.4); Platelet Count 155 thou/uL (130-400); RBC Distribution Width 19.2 % (11.5-14.5); White Blood Cell (WBC) Count 12.9 thou/uL (4.8-10.8)
[2021-08-16 04:19] LABS: Anion Gap 11 mmol/L (10-20); BUN (Urea Nitrogen) 44 mg/dL (9.8-20.1); Calc. Creatinine Clearance 354 mL/min (70-130); Calcium 8.3 mg/dL (7.8-10.44); Carbon Dioxide 19 mmol/L (22-29); Chloride 122 mmol/L (98-107); Glucose 119 mg/dL (70-105); Potassium 3.7 mmol/L (3.5-5.1); Sodium 148 mmol/L (136-145)
[2021-08-16 04:35] LABS: Band 19 % (5-11); Large Platelets SLIGHT; Lymphocytes 11 % (21-51); MDiff Complete? YES; Metamyelocyte 2 % (0-0); Monocytes 2 % (0-10); Myelocyte 1 % (0-0); Neutrophil 65 % (42-75); Platelet Morphology Comment Appears Adequate
[2021-08-16] MEDS: Levothyroxine Sodium 50 MCG TAB PO SCH (05:18)
[2021-08-16] MEDS: Metoclopramide HCl 10 MG/2 ML VIAL IVP SCH ×3 (05:18→21:21)
[2021-08-16] MEDS: Mometasone 100 MCG/Formoterol 5 MCG 120 PUFF INHALER INH SCH ×2 (06:47→18:28)
[2021-08-16] MEDS: Amiodarone 200 MG TAB PO SCH ×2 (08:30→21:22)
[2021-08-16] MEDS: Gabapentin 100 MG CAP PO SCH ×2 (08:30→21:24)
[2021-08-16] MEDS: ALPRAZolam 1 MG TAB PO SCH ×2 (08:30→21:21)
[2021-08-16] MEDS: Dexamethasone 4 mg/ml Vial SLOW IVP SCH (08:31)
[2021-08-16] MEDS: fentaNYL 75 mcg/hour Patch TD SCH (08:32)
[2021-08-16] MEDS: Pantoprazole 40 MG GRANULES PACKET FS SCH (08:32)
[2021-08-16] MEDS: Polyethylene Glycol 3350 17 GM Packet PO SCH (08:32)
[2021-08-16] MEDS: Nystatin 500,000 UNITS/5 ML UDCUP SSW SCH ×4 (08:33→21:21)
[2021-08-16] MEDS: NPH, Human Insulin Isophane 300 UNIT/3 ML VIAL SC SCH ×2 (08:45→21:29)
[2021-08-16] MEDS: Sodium Chloride 0.45% 1,000 ML IV SCH ×2 (12:33→23:14)
[2021-08-16] MEDS ORDERED: Morphine 4 MG/ML VIAL SLOW IVP SCH (21:00)
[2021-08-16] MEDS: Montelukast Sodium 10 mg Tablet PO SCH (21:24)
[2021-08-16] MEDS: hydrALAZINE 20 MG/ML VIAL SLOW IVP PRN (23:09)
[2021-08-17] MEDS: MEROPENEM 1 GM/50 ML 1 GM in Premix Bag 1 BAG IVPB SCH ×3 (04:17→19:48)
[2021-08-17] MEDS: Sodium Chloride 0.45% 1,000 ML IV SCH ×2 (04:18→12:07)
[2021-08-17] MEDS: Lorazepam 2 MG/ML VIAL SLOW IVP PRN (06:05)
[2021-08-17] MEDS: Levothyroxine Sodium 50 MCG TAB PO SCH (06:05)
[2021-08-17] MEDS: Metoclopramide HCl 10 MG/2 ML VIAL IVP SCH ×3 (06:05→22:01)
[2021-08-17] MEDS: Mometasone 100 MCG/Formoterol 5 MCG 120 PUFF INHALER INH SCH ×2 (06:58→19:05)
[2021-08-17] MEDS: NPH, Human Insulin Isophane 300 UNIT/3 ML VIAL SC SCH ×2 (08:32→20:16)
[2021-08-17] MEDS: Dexamethasone 4 mg/ml Vial SLOW IVP SCH (08:33)
[2021-08-17] MEDS: Amiodarone 200 MG TAB PO SCH ×2 (08:38→19:16)
[2021-08-17] MEDS: ALPRAZolam 1 MG TAB PO SCH ×2 (08:38→19:15)
[2021-08-17] MEDS: Nystatin 500,000 UNITS/5 ML UDCUP SSW SCH ×4 (08:38→19:24)
[2021-08-17] MEDS: Pantoprazole 40 MG GRANULES PACKET FS SCH (08:38)
[2021-08-17] MEDS: Gabapentin 100 MG CAP PO SCH ×2 (08:38→19:49)
[2021-08-17] MEDS: Polyethylene Glycol 3350 17 GM Packet PO SCH (08:39)
[2021-08-17] MEDS ORDERED: Morphine 4 MG/ML VIAL ONE (08:59)
[2021-08-17] MEDS ORDERED: Morphine 4 MG/ML VIAL SLOW IVP SCH (09:45)
[2021-08-17] MEDS ORDERED: Morphine 4 MG/ML VIAL SLOW IVP PRN (11:45)
[2021-08-17] MEDS: Montelukast Sodium 10 mg Tablet PO SCH (19:16)
[2021-08-18] MEDS: Sodium Chloride 0.45% 1,000 ML IV SCH ×2 (02:01→15:12)
[2021-08-18] MEDS: MEROPENEM 1 GM/50 ML 1 GM in Premix Bag 1 BAG IVPB SCH ×2 (04:00→12:15)
[2021-08-18] MEDS: Levothyroxine Sodium 50 MCG TAB PO SCH (04:01)
[2021-08-18 04:41] LABS: Hemoglobin 8.1 g/dL (12.0-16.0); Mean Corpuscular HGB CONC 32.1 g/dL (32.0-36.0); Mean Corpuscular Hemoglobin 28.9 pg (27.0-31.0); Mean Corpuscular Volume 90.2 fL (78.0-98.0); Mean Platelet Volume 10.6 fL (7.4-10.4); Platelet Count 154 thou/uL (130-400); RBC Distribution Width 18.8 % (11.5-14.5); White Blood Cell (WBC) Count 10.1 thou/uL (4.8-10.8)
[2021-08-18 04:57] LABS: Anion Gap 12 mmol/L (10-20); BUN (Urea Nitrogen) 46 mg/dL (9.8-20.1); Calc. Creatinine Clearance 344 mL/min (70-130); Calcium 8.2 mg/dL (7.8-10.44); Carbon Dioxide 20 mmol/L (22-29); Chloride 119 mmol/L (98-107); Glucose 102 mg/dL (70-105); Potassium 3.8 mmol/L (3.5-5.1); Sodium 147 mmol/L (136-145)
[2021-08-18] MEDS: hydrALAZINE 20 MG/ML VIAL SLOW IVP PRN ×2 (05:09→15:11)
[2021-08-18] MEDS: Metoclopramide HCl 10 MG/2 ML VIAL IVP SCH ×2 (05:09→13:34)
[2021-08-18 05:17] LABS: Band 10 % (5-11); Lymphocytes 17 % (21-51); MDiff Complete? YES; Metamyelocyte 1 % (0-0); Monocytes 6 % (0-10); Myelocyte 1 % (0-0); Neutrophil 65 % (42-75)
[2021-08-18] MEDS: Mometasone 100 MCG/Formoterol 5 MCG 120 PUFF INHALER INH SCH ×2 (07:12→17:53)
[2021-08-18] MEDS: Morphine 4 MG/ML VIAL SLOW IVP PRN ×2 (07:58→12:44)
[2021-08-18] MEDS: Dexamethasone 4 mg/ml Vial SLOW IVP SCH (08:33)
[2021-08-18] MEDS: Amiodarone 200 MG TAB PO SCH (08:54)
[2021-08-18] MEDS: Gabapentin 100 MG CAP PO SCH (08:54)
[2021-08-18] MEDS: ALPRAZolam 1 MG TAB PO SCH (08:54)
[2021-08-18] MEDS: NPH, Human Insulin Isophane 300 UNIT/3 ML VIAL SC SCH (08:55)
[2021-08-18] MEDS: Nystatin 500,000 UNITS/5 ML UDCUP SSW SCH ×3 (08:55→17:03)
[2021-08-18] MEDS: Polyethylene Glycol 3350 17 GM Packet PO SCH (08:56)
[2021-08-18] MEDS: Pantoprazole 40 MG GRANULES PACKET FS SCH (08:56)
[2021-08-18 12:36] VITALS: BMI 75.4
[2021-08-18] MEDS ORDERED: [UNRECOGNIZED DRUG - OTHER] IV SCH (14:00)
[2021-08-18] MEDS ORDERED: POTASSIUM PHOSPHATE IV SCH ×3 (14:00→17:00)
[2021-08-18] MEDS ORDERED: CALCIUM GLUCONATE IV SCH (14:00)
[2021-08-18] MEDS ORDERED: POTASSIUM ACETATE IV SCH ×3 (14:00→17:00)
[2021-08-18 14:08] LABS: Phosphorus 2.9 mg/dL (2.3-4.7)
[2021-08-18 14:10] LABS: Magnesium 1.9 mg/dL (1.6-2.6)
[2021-08-18 14:55] VITALS: BP 181/81
[2021-08-18] MEDS ORDERED: [UNRECOGNIZED DRUG - OTHER] IV SCH ×2 (15:00→17:00)
[2021-08-18] MEDS ORDERED: FAT EMULSION IV SCH ×2 (15:00→17:00)
[2021-08-18] MEDS ORDERED: hydrALAZINE 20 MG/ML VIAL ONE (15:02)
[2021-08-18] MEDS ORDERED: Magnesium 2 GM/50 ML 2 GM in Premix Bag 1 BAG IVPB SCH (15:45)
[2021-08-18] MEDS ORDERED: Electrolyte Replacement Protocol FS PRN (15:45)
[2021-08-18 16:22] VITALS: TEMP 97.4
[2021-08-18] MEDS: Lorazepam 2 MG/ML VIAL SLOW IVP PRN ×2 (16:47→19:11)
[2021-08-19] MEDS ORDERED: POTASSIUM ACETATE IV SCH (14:00)
[2021-08-19] MEDS ORDERED: [UNRECOGNIZED DRUG - OTHER] IV SCH (14:00)
[2021-08-19] MEDS ORDERED: POTASSIUM PHOSPHATE IV SCH (14:00)
[2021-08-19] MEDS ORDERED: CALCIUM GLUCONATE IV SCH (14:00)
[2021-08-20] MEDS ORDERED: FAT EMULSION IV SCH (14:00)
[2021-08-20] MEDS ORDERED: POTASSIUM ACETATE IV SCH (14:00)
[2021-08-20] MEDS ORDERED: [UNRECOGNIZED DRUG - OTHER] IV SCH (14:00)
[2021-08-20] MEDS ORDERED: POTASSIUM PHOSPHATE IV SCH (14:00)
[2021-08-26] MEDS ORDERED: Amiodarone 200 MG TAB PO SCH (09:00)
== END 2021-08-18 19:50 | DRG 4 ==
LOC: ERS 17:58 → T4-B 21:30 → IMCU/EMU 06-20 18:49 → CCU 06-23 12:31 → IMCU/EMU 07-07 17:39 → CCU 07-13 13:05
PROVIDERS: ADMIT Internal Medicine; ATTEND Internal Medicine
PROC: 8E0ZXY6 Isolation (ICD-10-PCS; 2021-06-19)
PROC: 3E0333Z Introduction of Anti-inflammatory into Peripheral Vein, Percutaneous Approach (ICD-10-PCS; 2021-06-19)
PROC: XW0DXM6 Introduction of Baricitinib into Mouth and Pharynx, External Approach, New Technology Group 6 (ICD-10-PCS; 2021-06-20)
PROC: XW033E5 Introduction of Remdesivir Anti-infective into Peripheral Vein, Percutaneous Approach, New Technology Group 5 (ICD-10-PCS; 2021-06-20)
PROC: 5A1955Z Respiratory Ventilation, Greater than 96 Consecutive Hours (ICD-10-PCS; 2021-06-23)
PROC: 0BH17EZ Insertion of Endotracheal Airway into Trachea, Via Natural or Artificial Opening (ICD-10-PCS; 2021-06-23)
PROC: 0D9670Z Drainage of Stomach with Drainage Device, Via Natural or Artificial Opening (ICD-10-PCS; 2021-06-23)
PROC: 0B110F4 Bypass Trachea to Cutaneous with Tracheostomy Device, Open Approach (ICD-10-PCS; principal; 2021-07-17)
PROC: 0DH63UZ Insertion of Feeding Device into Stomach, Percutaneous Approach (ICD-10-PCS; 2021-07-17)
PROC: 0W9B30Z Drainage of Left Pleural Cavity with Drainage Device, Percutaneous Approach (ICD-10-PCS; 2021-07-17)
PROC: 3E033XZ Introduction of Vasopressor into Peripheral Vein, Percutaneous Approach (ICD-10-PCS; 2021-07-28)
PROC: 0W9B30Z Drainage of Left Pleural Cavity with Drainage Device, Percutaneous Approach (ICD-10-PCS; 2021-07-28)
PROC: 02HV33Z Insertion of Infusion Device into Superior Vena Cava, Percutaneous Approach (ICD-10-PCS; 2021-07-28)
PROC: B548ZZA Ultrasonography of Superior Vena Cava, Guidance (ICD-10-PCS; 2021-07-28)
PROC: 0DP6XUZ Removal of Feeding Device from Stomach, External Approach (ICD-10-PCS; 2021-08-09)
PROC: 0HD7XZZ Extraction of Abdomen Skin, External Approach (ICD-10-PCS; 2021-08-10)
PROC: 30233N1 Transfusion of Nonautologous Red Blood Cells into Peripheral Vein, Percutaneous Approach (ICD-10-PCS; 2021-08-11)
PROC: 0DH67UZ Insertion of Feeding Device into Stomach, Via Natural or Artificial Opening (ICD-10-PCS; 2021-08-11)
PROC: 3E0G76Z Introduction of Nutritional Substance into Upper GI, Via Natural or Artificial Opening (ICD-10-PCS; 2021-08-11)
PROC: 3E0436Z Introduction of Nutritional Substance into Central Vein, Percutaneous Approach (ICD-10-PCS; 2021-08-18)
DX: U07.1 COVID-19 (principal); T80.211A Bloodstream infection due to central venous catheter, initial encounter; J95.811 Postprocedural pneumothorax; J12.82 Pneumonia due to coronavirus disease 2019; J80 Acute respiratory distress syndrome; G93.41 Metabolic encephalopathy; R65.20 Severe sepsis without septic shock; J69.0 Pneumonitis due to inhalation of food and vomit; A41.02 Sepsis due to Methicillin resistant Staphylococcus aureus; N17.9 Acute kidney failure, unspecified; K92.2 Gastrointestinal hemorrhage, unspecified; E87.0 Hyperosmolality and hypernatremia; Z68.45 Body mass index [BMI] 70 or greater, adult; E46 Unspecified protein-calorie malnutrition; K94.23 Gastrostomy malfunction; N39.0 Urinary tract infection, site not specified; J98.11 Atelectasis; Z51.5 Encounter for palliative care; E03.9 Hypothyroidism, unspecified; M41.9 Scoliosis, unspecified; J45.909 Unspecified asthma, uncomplicated; F32.A Depression, unspecified; F41.9 Anxiety disorder, unspecified; G89.4 Chronic pain syndrome; E55.9 Vitamin D deficiency, unspecified; D64.9 Anemia, unspecified; E66.01 Morbid (severe) obesity due to excess calories; E87.5 Hyperkalemia; R31.9 Hematuria, unspecified; R13.12 Dysphagia, oropharyngeal phase; E87.6 Hypokalemia; D69.6 Thrombocytopenia, unspecified; B96.89 Other specified bacterial agents as the cause of diseases classified elsewhere; J98.2 Interstitial emphysema; B95.2 Enterococcus as the cause of diseases classified elsewhere; Y83.8 Other surgical procedures as the cause of abnormal reaction of the patient, or of later complication, without mention of misadventure at the time of the procedure; Z88.8 Allergy status to other drugs, medicaments and biological substances; Z79.899 Other long term (current) drug therapy; Z79.890 Hormone replacement therapy; Z79.51 Long term (current) use of inhaled steroids; Z79.01 Long term (current) use of anticoagulants; Z98.51 Tubal ligation status; Z90.49 Acquired absence of other specified parts of digestive tract; Z86.711 Personal history of pulmonary embolism; Z86.718 Personal history of other venous thrombosis and embolism; Z80.6 Family history of leukemia; Z82.49 Family history of ischemic heart disease and other diseases of the circulatory system; Z87.891 Personal history of nicotine dependence; Z87.892 Personal history of anaphylaxis; Z78.1 Physical restraint status; L89.316 Pressure-induced deep tissue damage of right buttock; L89.502 Pressure ulcer of unspecified ankle, stage 2; L89.899 Pressure ulcer of other site, unspecified stage; Y92.230 Patient room in hospital as the place of occurrence of the external cause; I48.91 Unspecified atrial fibrillation
CPT/HCPCS: 36415; 36416; 36430; 36600; 71045; 74018; 76705; 80048; 80053; 80076; 80202; 81003; 81015; 82271; 82728; 82805; 83605; 83735; 83880; 84100; 84145; 84478; 84484; 85007; 85025; 85027; 85379; 85610; 85730; 86140; 86850; 86900; 86901; 87040; 87077; 87086; 87149; 87186; 93005; 93010; 94002; 94003; 94640; 94660; 94760; 96374; A4217; C9113; J0282; J0360; J0610; J0692; J0696; J1100; J1160; J1170; J1644; J1815; J1940; J2060; J2185; J2250; J2270; J2405; J2543; J2704; J2765; J2997; J3010; J3370; J3475; J3480; J3486; J3490; J7030; J7050; J7070; J7120; J7620; P9016; Q9963; S0020